=== PATIENT | male | born 1940 | race Caucasian/White ===

== ENCOUNTER 2018-02-17 15:12 | Observation (INO) ==
[2018-02-17] MEDS ORDERED: Isovue-370 500 ML INFUS..BTL IV ONE (15:36)
--- NOTE | 2018-02-17 15:38 | Emergency Department Note ---
Disposition Clinical Impression: Impaired mobility and ADLs Major depression Qualifiers: Major depression recurrence: unspecified whether recurrent Active/Remission status: currently active Major depression episode severity: unspecified Qualified Code(s): F32.9 - Major depressive disorder, single episode, unspecified Disposition: Admitted As Inpatient Condition: Good Referrals: Riley Danielle MD [Primary Care Provider] - Forms: ED Satisfaction Letter, Work/School Release Abdominal Pain HPI - General Chief Complaint: ED Abdominal Pain Stated Complaint: depression, weakness, abd pain Time Seen by Provider: 02/17/18 15:29 Source: patient Mode of arrival: ambulatory Limitations: no limitations Nursing Notes Reviewed: Yes Vital Signs Reviewed: Yes - History of Present Illness HPI Narrative: Patient presents today for evaluation of generalized weakness. The patient's family is at bedside. Patient's family is also a nurse within the emergency department. The patient has had progressive symptoms over the last couple of months. Over the last week he is symptoms have gotten significantly worse which includes generalized weakness as well as not getting out of bed to perform his daily attacks. Patient does not even want to feed himself secondary to his weakness. He describes his weakness is generalized weakness. He states that he feels he is just depressed. He states that he is upset that he cannot do the things he used to do and just feels that they are not necessarily worth doing. His describes not being able to get him up to do his daily medications work any activities. He wants to lay in bed all day. He asked for his pain medications which includes Percocet Pain Scale: 7 - Related Data Home Medications Medication Instructions Recorded Confirmed Gabapentin [Neurontin] 800 mg PO TID 03/06/15 02/17/18 Insulin NPH Hum/Reg Insulin Hm 45 units SQ BID 03/06/15 02/17/18 [Novolin 70-30 100 Unit/ml Vial] Lisinopril [Zestril] 40 mg PO DAILY 03/06/15 02/17/18 Simvastatin [Zocor] 40 mg PO HS 03/06/15 02/17/18 Primidone [Mysoline] 250 mg PO Q6H 08/31/17 02/17/18 Albuterol Sulfate [Ventolin Hfa] 2 puff IH DAILY PRN 02/17/18 02/17/18 FLUoxetine HCl [Fluoxetine HCl] 80 mg PO DAILY 02/17/18 02/17/18 OxyCODONE/APAP 10/325 [Percocet 1 tab PO QID 02/17/18 02/17/18 10/325 MG] Propranolol HCl 80 mg PO BID 02/17/18 02/17/18 Testosterone Cypionate 1 ml IM Q10D 02/17/18 02/17/18 [Depo-Testosterone] Allergies Allergy/AdvReac Type Severity Reaction Status Date / Time No Known Allergies Allergy Verified 08/31/17 09:08 Review of Systems: CONSTITUTIONAL: Weakness and fatigue. No fevers or chills. HEENT: Eyes: No visual changes. Ears, Nose, Throat: No hearing loss, difficulty talking or unable to swallow. SKIN: No rash or itching. CARDIOVASCULAR: No chest pain, chest pressure or chest discomfort. No palpitations or edema. RESPIRATORY: No shortness of breath, cough or sputum. GASTROINTESTINAL: Nausea and decreased appetite with generalized abdominal pain. GENITOURINARY: No burning on urination or hematuria. NEUROLOGICAL: No headache, dizziness, syncope, paralysis, ataxia, numbness or tingling in the extremities. No change in bowel or bladder control. MUSCULOSKELETAL: No muscle pain, back pain, joint pain or stiffness. Abdominal Pain PMH - Past Medical History Medical history: Reports: arthritis, COPD, diabetes, GERD, hypertension, other Male Surgical History: Reports: hip replacement, knee replacement, other Psychiatric history: Reports: no psych history - Social History Smoking status: Never smoker Alcohol use: Reports: none Drug use: Reports: none Physical Exam General: Well appearing, nontoxic, flat affect Head: Normocephalic Atraumatic Eyes: PERRL, EOMI ENT: Airway patent, no stridor Neck: supple, no meningismus Chest: Lungs clear to auscultation bilateral Cardiac: Regular rate and rhythm, no murmurs, rubs or gallops Abdomen: soft, nontender, nondistended; no guarding, rebound, or tenderness to percussion Musculoskeletal: Calves symmetric, nontender, no palpable cord Skin: No rash, normal skin tone Neuro: Alert and Oriented to person, place, and time; No focal deficit, CN 2-12 symmetric and intact; shaking of the right upper extremity with 5 out of 5 strength throughout the upper and lower extremities. Course - Reevaluation(s) Reevaluation #1: Family is at bedside and describes extreme depression. Lacks interest in anything other than making sure he gets his pain medications and time. Patient continues to have pain everywhere. Concern for depression and possible fibromyalgia on top of his other chronic medical conditions causing him to ignore self-care. The family is adamant they are unable to take care of the patient he will need admission. I will work with hospitalist to obtain admission and further treatment. Patient may need physical therapy as well as placement. - Consultations Consultation #1: Discussed with hospitalist. Patient accepted for admission. Vital Signs Temperature 97.5 F L 02/17/18 15:13 Pulse Rate 61 02/17/18 15:13 Respiratory Rate 18 02/17/18 15:13 Blood Pressure 168/87 02/17/18 15:13 O2 Sat by Pulse Oximetry 95 02/17/18 15:13 Temperature 97.5 F L 02/17/18 15:26 Pulse Rate 57 02/17/18 17:30 Respiratory Rate 15 02/17/18 17:30 Blood Pressure 147/80 02/17/18 17:30 O2 Sat by Pulse Oximetry 93 02/17/18 17:30 Oxygen Delivery Oxygen Delivery Room Air Abdominal Pain - Medical Records Medical records reviewed: Yes I reviewed the patient's medical records. - Lab Data Lab results reviewed: Yes I reviewed the patient's lab results. Result diagrams: 02/17/18 16:23 02/17/18 17:03 Lab Results 02/17/18 02/17/18 02/17/18 Range/Units 15:49 15:49 15:49 WBC (4.3-11.1) K/mcL RBC (4.19-5.50) M/mcL Hgb (12.9-16.9) g/dL Hct (37.5-50.1) % MCV (83.0-100.0) fL MCH (28.0-33.3) pg MCHC (31.6-35.5) g/dL RDW (11.5-14.5) % Plt Count (140-400) K/mcL MPV (9.4-12.4) fL Immature Gran % (0-4) % Seg Neutrophils % % Lymphocytes % % Monocytes % % Eosinophils % % Basophils % % Neutrophils # (1.6-8.9) K/mcL Lymphocytes # (0.6-4.6) K/mcL Monocytes # (0.0-1.3) K/mcL Eosinophils # (0.0-0.6) K/mcL Basophils # (0.0-0.2) K/mcL VBG pH (7.32-7.42) pH Units VBG pCO2 (41-51) mmHg VBG pO2 (25-50) mmHg VBG HCO3 (21-27) mEq/L Sodium Cancelled Potassium Cancelled Chloride Cancelled Carbon Dioxide Cancelled BUN Cancelled Creatinine Cancelled Est GFR ( Amer) Cancelled Est GFR (Non-Af Amer) Cancelled BUN/Creatinine Ratio Cancelled Glucose Cancelled POC Glucose (70-99) mg/dL Calculated Osmolality Cancelled Lactic Acid 1.5 (0.5-2.2) mmol/L Calcium Cancelled Total Bilirubin Cancelled Direct Bilirubin Cancelled Indirect Bilirubin Cancelled AST Cancelled ALT Cancelled Alkaline Phosphatase Cancelled Troponin I < 0.03 (< 0.04) ng/mL Serum Total Protein Cancelled Albumin Cancelled Globulin Cancelled Albumin/Globulin Ratio Cancelled Lipase Cancelled TSH Cancelled Urine Color (Yellow) Urine Clarity (Clear) Urine pH (5.0-8.0) pH Units Ur Specific [place] (1.010-1.025) Urine Protein (Neg-Trace) mg/dL Urine Glucose (UA) (Normal) mg/dL Urine Ketones (Negative) mg/dL Urine Blood (Negative) Urine Nitrite (Negative) Urine Bilirubin (Negative) Urine Urobilinogen (Normal) mg/dL Ur Leukocyte Esterase (Negative) Urine Microscopic RBC (0-3) per hpf Urine Microscopic WBC (0-3) per hpf Ur Squamous Epith Cells (None-Few) per lpf Urine Bacteria (None-Few) per hpf Hyaline Casts (None-Few) per lpf Ur Culture Indicated? (NO) Specimen Rejected Clotted 02/17/18 02/17/18 02/17/18 Range/Units 16:04 16:23 16:54 WBC 9.3 (4.3-11.1) K/mcL RBC 5.40 (4.19-5.50) M/mcL Hgb 17.3 H (12.9-16.9) g/dL Hct 51.7 H (37.5-50.1) % MCV 95.7 (83.0-100.0) fL MCH 32.0 (28.0-33.3) pg MCHC 33.5 (31.6-35.5) g/dL RDW 12.7 (11.5-14.5) % Plt Count 254 (140-400) K/mcL MPV 10.3 (9.4-12.4) fL Immature Gran % 0.4 (0-4) % Seg Neutrophils % 55.6 % Lymphocytes % 27.0 % Monocytes % 9.3 % Eosinophils % 7.3 % Basophils % 0.4 % Neutrophils # 5.2 (1.6-8.9) K/mcL Lymphocytes # 2.5 (0.6-4.6) K/mcL Monocytes # 0.9 (0.0-1.3) K/mcL Eosinophils # 0.7 H (0.0-0.6) K/mcL Basophils # 0.0 (0.0-0.2) K/mcL VBG pH 7.35 (7.32-7.42) pH Units VBG pCO2 53 H (41-51) mmHg VBG pO2 66 H (25-50) mmHg VBG HCO3 29 H (21-27) mEq/L Sodium Potassium Chloride Carbon Dioxide BUN Creatinine Est GFR ( Amer) Est GFR (Non-Af Amer) BUN/Creatinine Ratio Glucose POC Glucose (70-99) mg/dL Calculated Osmolality Lactic Acid (0.5-2.2) mmol/L Calcium Total Bilirubin Direct Bilirubin Indirect Bilirubin AST ALT Alkaline Phosphatase Troponin I (< 0.04) ng/mL Serum Total Protein Albumin Globulin Albumin/Globulin Ratio Lipase TSH Urine Color (Yellow) Urine Clarity (Clear) Urine pH (5.0-8.0) pH Units Ur Specific [place] (1.010-1.025) Urine Protein (Neg-Trace) mg/dL Urine Glucose (UA) (Normal) mg/dL Urine Ketones (Negative) mg/dL Urine Blood (Negative) Urine Nitrite (Negative) Urine Bilirubin (Negative) Urine Urobilinogen (Normal) mg/dL Ur Leukocyte Esterase (Negative) Urine Microscopic RBC (0-3) per hpf Urine Microscopic WBC (0-3) per hpf Ur Squamous Epith Cells (None-Few) per lpf Urine Bacteria (None-Few) per hpf Hyaline Casts (None-Few) per lpf Ur Culture Indicated? (NO) Specimen Rejected Hemolyzed 02/17/18 02/17/18 02/17/18 Range/Units 17:03 17:24 18:00 WBC (4.3-11.1) K/mcL RBC (4.19-5.50) M/mcL Hgb (12.9-16.9) g/dL Hct (37.5-50.1) % MCV (83.0-100.0) fL MCH (28.0-33.3) pg MCHC (31.6-35.5) g/dL RDW (11.5-14.5) % Plt Count (140-400) K/mcL MPV (9.4-12.4) fL Immature Gran % (0-4) % Seg Neutrophils % % Lymphocytes % % Monocytes % % Eosinophils % % Basophils % % Neutrophils # (1.6-8.9) K/mcL Lymphocytes # (0.6-4.6) K/mcL Monocytes # (0.0-1.3) K/mcL Eosinophils # (0.0-0.6) K/mcL Basophils # (0.0-0.2) K/mcL VBG pH (7.32-7.42) pH Units VBG pCO2 (41-51) mmHg VBG pO2 (25-50) mmHg VBG HCO3 (21-27) mEq/L Sodium 133 L Potassium 4.1 Chloride 106 Carbon Dioxide 26 BUN 11 Creatinine 1.10 Est GFR ( Amer) > 60 Est GFR (Non-Af Amer) > 60 BUN/Creatinine Ratio 10 Glucose 151 H POC Glucose 123 H (70-99) mg/dL Calculated Osmolality 278 L Lactic Acid (0.5-2.2) mmol/L Calcium 8.6 Total Bilirubin 0.4 Direct Bilirubin 0.0 Indirect Bilirubin 0.4 AST 13 ALT 11 Alkaline Phosphatase 108 H Troponin I (< 0.04) ng/mL Serum Total Protein 6.6 Albumin 3.9 Globulin 2.7 Albumin/Globulin Ratio 1.4 Lipase 46 TSH 2.209 Urine Color Yellow (Yellow) Urine Clarity Clear (Clear) Urine pH 6.5 (5.0-8.0) pH Units Ur Specific [place] 1.030 H (1.010-1.025) Urine Protein 30 H (Neg-Trace) mg/dL Urine Glucose (UA) >=1000 H (Normal) mg/dL Urine Ketones Negative (Negative) mg/dL Urine Blood Negative (Negative) Urine Nitrite Negative (Negative) Urine Bilirubin Negative (Negative) Urine Urobilinogen Normal (Normal) mg/dL Ur Leukocyte Esterase Negative (Negative) Urine Microscopic RBC 0-3 (0-3) per hpf Urine Microscopic WBC 0-3 (0-3) per hpf Ur Squamous Epith Cells Few (None-Few) per lpf Urine Bacteria None Seen (None-Few) per hpf Hyaline Casts None Seen (None-Few) per lpf Ur Culture Indicated? NO (NO) Specimen Rejected - Radiology Data Radiology results reviewed: Yes I reviewed the patient's radiology results. - EKG Data EKG attestation: Yes I reviewed and interpreted this EKG. EKG results narrative: EKG shows sinus bradycardia with ventricular rate of 59. CO interval 161. QRS 97. QTC 44. Patient has no significant ST elevations or depressions.
[2018-02-17 16:07] LABS: VBG HCO3 29 mEq/L (21-27); VBG PCO2 53 mmHg (41-51); VBG PH 7.35 pH Units (7.32-7.42); VBG PO2 66 mmHg (25-50)
[2018-02-17 16:35] LABS: Basophils % 0.4 %; Eosinophils # 0.7 K/mcL (0.0-0.6); Eosinophils % 7.3 %; Hematocrit 51.7 % (37.5-50.1); Hemoglobin 17.3 g/dL (12.9-16.9); Immature Granulocytes % 0.4 % (0-4); Lymphocytes # 2.5 K/mcL (0.6-4.6); Mean Corpuscular HGB Conc 33.5 g/dL (31.6-35.5); Mean Corpuscular Volume 95.7 fL (83.0-100.0); Mean Platelet Volume 10.3 fL (9.4-12.4); Monocytes # 0.9 K/mcL (0.0-1.3); Monocytes % 9.3 %; Neutrophils # 5.2 K/mcL (1.6-8.9); Platelet Count 254 K/mcL (140-400); Red Cell Distribution Width 12.7 % (11.5-14.5); Segmented Neutrophils % 55.6 %
[2018-02-17] MEDS ORDERED: *HR* OxyCODONE/APAP 10/325 TABLET PO ONE (16:37)
[2018-02-17 17:41] LABS: Alanine Aminotransferase 11 Units/L (7-52); Albumin 3.9 g/dL (3.5-5.7); Albumin/Globulin Ratio 1.4 (1.1-2.2); Alkaline Phosphatase 108 Units/L (34-104); Aspartate Amino Transferase 13 Units/L (13-39); BUN/Creatinine Ratio 10 (6-26); Bilirubin,Indirect 0.4 mg/dL (0.0-1.2); Bilirubin,Total 0.4 mg/dL (0.3-1.0); Blood Urea Nitrogen 11 mg/dL (8-23); Calcium 8.6 mg/dL (8.6-10.3); Carbon Dioxide 26 mEq/L (23-29); Chloride 106 mEq/L (98-107); Globulin 2.7 g/dL (2.4-3.5); Glucose 151 mg/dL (70-105); Lipase 46 Units/L (11-82); Osmolality,Calculated 278 (280-300); Potassium 4.1 mEq/L (3.5-5.1); Sodium 133 mEq/L (136-145); Total Protein 6.6 g/dL (6.4-8.9); eGFR For Non-African Americans > 60 (> 60)
[2018-02-17 17:54] LABS: Thyroid Stimulating Hormone 2.209 mcIU/mL (0.340-5.600)
[2018-02-17 18:11] LABS: Bilirubin,Urine Negative (Negative); Blood,Urine Negative (Negative); Clarity,Urine Clear (Clear); Color,Urine Yellow (Yellow); Glucose,Urine (UA) >=1000 mg/dL (Normal); Ketones,Urine Negative (Negative); Leukocyte Esterase,Urine Negative (Negative); Nitrite,Urine Negative (Negative); PH,Urine 6.5 pH Units (5.0-8.0); Protein,Urine 30 mg/dL (Neg-Trace); Urobilinogen,Urine Normal (Normal)
[2018-02-17 18:12] LABS: Bacteria,Urine None Seen per hpf (None-Few); Hyaline Casts,Urine None Seen per lpf (None-Few); RBC,Urine 0-3 per hpf (0-3); Squamous Epithelial Cell,Urine Few per lpf (None-Few); WBC,Urine 0-3 per hpf (0-3)
[2018-02-17] MEDS ORDERED: 0.9 % Sodium Chloride 1,000 ML IVC ONE (19:01)
[2018-02-17] MEDS ORDERED: Gabapentin 400 MG CAPSULE PO STA (19:44)
[2018-02-17] MEDS ORDERED: Naloxone 0.4 MG/ML INJ IVP PRN (23:20)
[2018-02-17] MEDS ORDERED: Ondansetron ODT 4 MG TAB.RAPDIS SL PRN (23:20)
[2018-02-17] MEDS ORDERED: OXYCODONE Oral CONC 10 MG/0.5 ML ORAL.SYG SL PRN (23:20)
[2018-02-17] MEDS ORDERED: Dextrose Gel 15 GM/37.5 ML TUBE PO PRN ×2 (23:23)
[2018-02-17] MEDS ORDERED: D5% in Water 1,000 ML IVC PRN (23:23)
[2018-02-17] MEDS ORDERED: *HR* Dextrose 50 % in Water (Syg) 50 ML SYRINGE IVP PRN (23:23)
[2018-02-17] MEDS: OXYCODONE Oral CONC 10 MG/0.5 ML ORAL.SYG SL PRN (23:48)
[2018-02-18 01:17] LABS: Hematocrit 50.4 % (37.5-50.1); Hemoglobin 16.8 g/dL (12.9-16.9); Mean Corpuscular HGB Conc 33.3 g/dL (31.6-35.5); Mean Corpuscular Hemoglobin 31.9 pg (28.0-33.3); Mean Corpuscular Volume 95.6 fL (83.0-100.0); Mean Platelet Volume 10.8 fL (9.4-12.4); Platelet Count 239 K/mcL (140-400); Red Blood Count 5.27 M/mcL (4.19-5.50); Red Cell Distribution Width 12.8 % (11.5-14.5)
[2018-02-18 01:36] LABS: BUN/Creatinine Ratio 10 (6-26); Blood Urea Nitrogen 11 mg/dL (8-23); Calcium 8.3 mg/dL (8.6-10.3); Carbon Dioxide 26 mEq/L (23-29); Chloride 104 mEq/L (98-107); Glucose 101 mg/dL (70-105); Osmolality,Calculated 284 (280-300); Potassium 3.7 mEq/L (3.5-5.1); Sodium 137 mEq/L (136-145); eGFR For Non-African Americans > 60 (> 60)
[2018-02-18] MEDS: OXYCODONE Oral CONC 10 MG/0.5 ML ORAL.SYG SL PRN ×4 (03:43→16:39)
--- NOTE | 2018-02-18 05:04 | Internal Med History&Physical ---
Date of Encounter: 02/18/18 Time of Encounter: 22:45 Internal Medicine - H&P: HPI Chief complaint: Major depression Admitted From: Home Plans for Post Hospital Care: Home History of present illness: Mr. Brock is a 77 year old male Patient states that he is in constant pain in his legs, stomach and back. Lately he just wants to lay down and not do anything. He says "I am kind of depressed" and this is been going on for 2-3 months. He says his hips hurt, as well as his lower stomach causing him to not eat like he used to. He contributes this to getting old, which makes him more depressed. When asked about this stomach pain, patient states he thinks fried foods make it worse but other foods do it as well. He has recently started treatment for Parkinson's disease at [facility], and he gets embarrassed when he goes out due to his shakes. Currently patient denies nausea and vomiting but does have lower abdominal pain which is chronic. He denies epigastric abdominal pain, right upper quadrant abdominal pain. He denies chest pain, diarrhea, constipation, and dysuria. He has a history of diabetes and says that his sugars are not well-controlled and he sometimes takes his insulin even when he is not eating. Does not check her sugars regularly but sometimes will feel sick enough to get up in the night eat something quickly. His helps him with medications but sometimes this is difficult for her. Past Med Surg Social Fam HX - Past Medical History Medical history: arthritis, COPD, diabetes, GERD, hypertension, other Additional medical history: Tremors. Psychiatric history: no psych history - Past Surgical History Surgical History: hip replacement, knee replacement, orthopedic, other Additional surgical history: L eft hip and Left knee replacement. - Social History Smoking Status: Never smoker Smokeless Tobacco Status: No Alcohol use: none Drug use: none Internal Medicine - H&P: Meds Gabapentin [Neurontin] 800 mg PO TID 03/06/15 [History] Insulin NPH Hum/Reg Insulin Hm [Novolin 70-30 100 Unit/ml Vial] 45 units SQ BID 03/06/15 [History] Lisinopril [Zestril] 40 mg PO DAILY 03/06/15 [History] Simvastatin [Zocor] 40 mg PO HS 03/06/15 [History] Primidone [Mysoline] 250 mg PO Q6H 02/21/18 [History] Albuterol Sulfate [Ventolin Hfa] 2 puff IH DAILY PRN 02/17/18 [History] FLUoxetine HCl [Fluoxetine HCl] 80 mg PO DAILY 02/17/18 [History] OxyCODONE/APAP 10/325 [Percocet 10/325 MG] 1 tab PO QID 02/17/18 [History] Propranolol HCl 80 mg PO BID 02/17/18 [History] Testosterone Cypionate [Depo-Testosterone] 1 ml IM Q10D 02/17/18 [History] 3 Allergy/AdvReac Type Severity Reaction Status Date / Time No Known Allergies Allergy Verified 08/31/17 09:08 All Systems PM: A 10-system review of systems was performed and is negative for pertinent findings except as documented above in the HPI. - Constitutional Vitals: Temp Pulse Resp BP Pulse Ox 97.8 F 63 15 163/71 96 02/18/18 03:13 02/18/18 03:13 02/18/18 03:13 02/18/18 03:13 02/18/18 03:13 General appearance: Present: cooperative, A&O X 3, no acute distress, answers questions appropriately - Head Head exam: Present: normal inspection - Eye Eye exam: Present: EOMI, normal appearance - Respiratory Respiratory exam: Present: CTAB. Absent: chest wall tenderness, respiratory distress, wheezes - Cardiovascular Cardiovascular exam: Present: RRR. Absent: diastolic murmur, systolic murmur - GI/Abdominal GI/Abdominal exam: Present: normal bowel sounds, soft, tenderness Additional comments: Mild tenderness with palpation in the lower abdomen - Extremities Exam Extremities exam: Present: warm, radial pulses palpable and symmetrical. Absent : calf tenderness, pedal edema, tenderness - Neurological Exam Neurological exam: Present: no focal deficits, strengths equal and symetr throughout. Absent: motor sensory deficit, facial droop, speech deficit - Psychiatric Psychiatric exam: Present: depressed Additional comments: Patient somewhat tearful during evaluation - Skin Skin exam: Present: normal color, warm Internal Med - H&P Results - Labs CBC & Chem 7: 02/18/18 00:35 02/18/18 00:35 Labs: Short CBC 02/18/18 Range/Units 00:35 WBC 11.0 (4.3-11.1) K/mcL Hgb 16.8 (12.9-16.9) g/dL Hct 50.4 H (37.5-50.1) % Plt Count 239 (140-400) K/mcL [facility] 02/18/18 00:35 Sodium 137 Potassium 3.7 Chloride 104 Carbon Dioxide 26 BUN 11 Creatinine 1.13 Glucose 101 Calcium 8.3 L - Assessment and plan (1) Major depression Current Visit: Yes Status: Acute Assessment and plan: Patient's states that it has been difficulty to care for the patient at home as he does not want to get out of bed and do anything. Patient has chronic pain and takes percocet and gabapentin for this. His pain level has not changed recently but being in pain and not being able to do the regular activities he use to do makes him depressed. He has been prescribed fluoxetine, but he says it is not helping. Patient was agreeable to admission, not pink- slipped. Psych eval in the morning for resources and support, potential treatment options Qualifiers: Major depression recurrence: unspecified whether recurrent Active/ Remission status: currently active Major depression episode severity: unspecified Qualified Code(s): F32.9 - Major depressive disorder, single episode, unspecified (2) Impaired mobility and ADLs Current Visit: Yes Status: Acute Assessment and plan: As above, patient not getting out of bed, not taking his meds safely including insulin. having difficulty caring for him. New diagnosis of parkinsons disease as well Psych eval (3) Chronic pain Current Visit: Yes Status: Acute Assessment and plan: No change from baseline. Patient does have abdominal pain in the lower abdomen, however his CT showed evidence of possible chronic pancreatitis. Patient did not have tenderness in the upper part of his abdomen on exam as would be expected with that finding. Continue home meds. Qualifiers: Qualified Code(s): G89.29 - Other chronic pain (4) Diabetes Current Visit: Yes Status: Acute Assessment and plan: Monitor sugars, ACHS Insulin sliding scale as needed. Qualifiers: Diabetes mellitus type: type 2 Diabetes mellitus custodial insulin use: with custodial use Diabetes mellitus complication status: with neurologic complications Diabetes mellitus complication detail: with polyneuropathy Qualified Code(s): E11.42 - Type 2 diabetes mellitus with diabetic polyneuropathy; Z79.4 - extermination inspector (current) use of insulin (5) DVT prophylaxis Current Visit: Yes Status: Acute Assessment and plan: SCDs - Time Spent With Patient Total time spent is greater than 50% in coordination of care (as documented) at patient's floor/unit and/or counseling patient: Greater than 35 minutes
[2018-02-18] MEDS: Insulin LISPRO 300 UNITS/3 ML VIAL SQ SCH ×2 (07:30→12:11)
[2018-02-18] MEDS: Gabapentin 400 MG CAPSULE PO SCH ×2 (08:08→13:49)
[2018-02-18 16:37] VITALS: BP 186/84
--- NOTE | 2018-02-18 16:41 | Discharge Summary ---
- NOTES TO OUTPATIENT PROVIDER Notes to Outpatient Provider: f/u with PCP as scheduled. Date of Encounter: 02/18/18 Time of Encounter: 16:39 - Discharge Diagnosis (1) Chronic pain Priority: Secondary Status: Acute Qualifiers: Qualified Code(s): G89.29 - Other chronic pain (2) DVT prophylaxis Priority: Primary Status: Acute (3) Diabetes Priority: Secondary Status: Acute Qualifiers: Diabetes mellitus type: type 2 Diabetes mellitus terminal make up operator insulin use: with terminal make up operator use Diabetes mellitus complication status: with neurologic complications Diabetes mellitus complication detail: with polyneuropathy Qualified Code(s): E11.42 - Type 2 diabetes mellitus with diabetic polyneuropathy; Z79.4 - assisted (current) use of insulin (4) Impaired mobility and ADLs Priority: Primary Status: Acute (5) Major depression Priority: Primary Status: Acute Qualifiers: Major depression recurrence: unspecified whether recurrent Active/ Remission status: currently active Major depression episode severity: unspecified Qualified Code(s): F32.9 - Major depressive disorder, single episode, unspecified Hospital course: Mr. Brock is a 77 year old male Mr. Brock is a 77 year old male Patient states that he is in constant pain in his legs, stomach and back. Lately he just wants to lay down and not do anything. He says "I am kind of depressed" and this is been going on for 2-3 months. He says his hips hurt, as well as his lower stomach causing him to not eat like he used to. He contributes this to getting old, which makes him more depressed. When asked about this stomach pain, patient states he thinks fried foods make it worse but other foods do it as well. He has recently started treatment for Parkinson's disease at [facility], and he gets embarrassed when he goes out due to his shakes. Currently patient denies nausea and vomiting but does have lower abdominal pain which is chronic. He denies epigastric abdominal pain, right upper quadrant abdominal pain. He denies chest pain, diarrhea, constipation, and dysuria. He has a history of diabetes and says that his sugars are not well-controlled and he sometimes takes his insulin even when he is not eating. Does not check her sugars regularly but sometimes will feel sick enough to get up in the night eat something quickly. His helps him with medications but sometimes this is difficult for her. further workup showed normal vital signs, labs are unremarkable, CT abd showed chronic pancreatitis and gall stone, no acute pathology. Psych consulted, recommended outpatient f/u. Pt and family wishes to go home. Pt will be discharged home today. Discharge discussed with: patient Time spent discussing smoking cessation with patient: more than 10 minutes - Time Spent with Patient Total time spent providing and/or coordinating discharge services: Greater than 30 minutes - Discharge Medications Home Medications: Gabapentin [Neurontin] 800 mg PO TID 03/06/15 [History] Insulin NPH Hum/Reg Insulin Hm [Novolin 70-30 100 Unit/ml Vial] 45 units SQ BID 03/06/15 [History] Lisinopril [Zestril] 40 mg PO DAILY 03/06/15 [History] Simvastatin [Zocor] 40 mg PO HS 03/06/15 [History] Primidone [Mysoline] 250 mg PO Q6H 08/31/17 [History] Albuterol Sulfate [Ventolin Hfa] 2 puff IH DAILY PRN 02/17/18 [History] FLUoxetine HCl [Fluoxetine HCl] 80 mg PO DAILY 02/17/18 [History] OxyCODONE/APAP 10/325 [Percocet 10/325 MG] 1 tab PO QID 02/17/18 [History] Propranolol HCl 80 mg PO BID 02/17/18 [History] Testosterone Cypionate [Depo-Testosterone] 1 ml IM Q10D 02/17/18 [History] Allergies/Adverse Reactions: 3 Allergy/AdvReac Type Severity Reaction Status Date / Time No Known Allergies Allergy Verified 08/31/17 09:08 Date of admission: 02/17/18 20:59 Primary care physician: Riley Danielle MD Consults: 02/18/18 05:03 Consult to Psychiatry [CONS] Routine Consulting Provider: Psychiatry Molly Reason consult: Other Other reason and/or additional details: Psych eval for major depression impeding patient's function to live. concerned patient is not safe to be home with her as she cannot take care of him. Anticipated date of discharge: 02/18/18 - Constitutional Vitals: Temp Pulse Resp BP Pulse Ox 97.6 F 68 16 186/84 94 02/18/18 16:35 02/18/18 16:35 02/18/18 16:35 02/18/18 16:35 02/18/18 16:35 General appearance: Present: cooperative, A&O X 3, no acute distress, answers questions appropriately Exam: PHYSICAL EXAMINATION: GENERAL APPEARANCE: The patient is alert, oriented and in no acute distress. HEENT: Head is normocephalic. The sinuses are nontender. Pupils are equal and reactive. The nares are patent. Oropharynx clear without lesions. NECK: Supple without lymphadenopathy. HEART: Regular rate and rhythm. LUNGS: No crackles or wheezes are heard. ABDOMEN: Soft, nontender, nondistended with good bowel sounds heard. Inguinal area is normal. EXTREMITIES: Without cyanosis, clubbing or edema. NEUROLOGICAL: Gross nonfocal. SKIN: Warm and dry without any rash. - Patient Status Disposition: Home, Self-Care Condition: Good Functional capacity at discharge: independent ambulation Overall status at discharge: patient is back to baseline - Discharge Instructions Follow Up With: Riley Danielle MD [Primary Care Provider] - - Diet and Activity Activity: increase activity as tolerated Diet: diabetic diet
--- NOTE | 2018-02-18 17:04 | Consult Note ---
Date of Encounter: 02/18/18 Time of Encounter: 16:00 Assessment & Recommendation (1) Mood disorder due to known physiological condition with depressive features Current visit: Yes Status: Acute (2) Chronic pain Current visit: Yes Status: Acute Qualifiers: Chronic pain type: other chronic pain Qualified Code(s): G89.29 - Other chronic pain History of Present Illness Patient: new to practice Requesting Physician: Kam Nichols MD Reason for consult: r/o depression vs pain History of present illness: Mr. Brock is a 77 year old male The patient was interviewed alone and later was interviewed in the presence of his . Chief complaint I would if I could History of present illness. The patient is being evaluated for depression and his ability to function. The patient has multiple medical problems that limit his ability to work and perform activities of daily living and to practice some hobbies. 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 This is been continued for a long period of time and the patient remains on 80 mg of Prozac even at the age of 77. He is followed by his family physician and so this medicine is been continued however Prozac is not recommended on the [facility]'s criteria as it may build up in geriatric patients. This patient has positive mood good interest reactivity of mood good self- esteem but does have some guilt and rumination low energy and difficulty with walking pain from neuropathy and attends a complain and asked for more pain medicines from time to time. The patient does not have suicidal ideation or psychosis pessimism or severe hopelessness. The patient's is able to identify some depressive symptoms but recognized that he does not have the psychological stigmata of major depressive disorder. Thus the request is what to do. CC: Kam Nichols MD Past Med Surg Social Fam HX - Past Medical History Source: patient Medical history: arthritis, COPD, diabetes, GERD, hypertension, other - Past Psychiatric History Psychiatric history: Reports: depression Family psychiatric history: Unknown Family History of Suicide: Unknown - Past Surgical History Surgical History: hip replacement, knee replacement, orthopedic, other - Social History Smoking Status: Never smoker Smokeless Tobacco Status: No Alcohol use: none Drug use: none Occupational status: retired Current living situation: Home - Independent Activity Level: Mostly sedentary Recent Out of Country Travel Within the Last 8 Weeks: No Exposure or Possible Exposure to Illness During Travel: No Medications & Allergies Gabapentin [Neurontin] 800 mg PO TID 03/06/15 [History] Insulin NPH Hum/Reg Insulin Hm [Novolin 70-30 100 Unit/ml Vial] 45 units SQ BID 03/06/15 [History] Lisinopril [Zestril] 40 mg PO DAILY 03/06/15 [History] Simvastatin [Zocor] 40 mg PO HS 03/06/15 [History] Primidone [Mysoline] 250 mg PO Q6H 08/31/17 [History] Albuterol Sulfate [Ventolin Hfa] 2 puff IH DAILY PRN 02/17/18 [History] FLUoxetine HCl [Fluoxetine HCl] 80 mg PO DAILY 02/17/18 [History] OxyCODONE/APAP 10/325 [Percocet 10/325 MG] 1 tab PO QID 02/17/18 [History] Propranolol HCl 80 mg PO BID 02/17/18 [History] Testosterone Cypionate [Depo-Testosterone] 1 ml IM Q10D 02/17/18 [History] 3 Allergy/AdvReac Type Severity Reaction Status Date / Time No Known Allergies Allergy Verified 08/31/17 09:08 Review of Systems Psychiatric: Reports: other Psychiatry Exam - Constitutional Vitals: Temp Pulse Resp BP Pulse Ox 97.6 F 68 16 186/84 94 02/18/18 16:35 02/18/18 16:35 02/18/18 16:35 02/18/18 16:35 02/18/18 16:35 General appearance: age & developmentally appropriate, well-groomed, well- nourished - Musculoskeletal Gait: normal Station: relaxed Strength & Tone: normal for patient - Psychiatric Patient Orientation: Yes Person, Yes Time, Yes Place Level of alertness: Alert Behavior: calm, cooperative Psychomotor activity: Slowed Eye Contact: Maintains Eye Contact Mood Description: Euthymic/stable Affect description: congruent with mood, full range Speech Volume: Normal Speech pattern: normal rate, normal rhythm, normal tone, fluent, spontaneous Language & Vocabulary: consistent with education Thought Process: Linear, Goal Oriented Thought Content: No Suicidal ideation, No Homicidal ideation, No Overt delusions Perceptual Disturbances: No Auditory hallucinations, No Visual hallucinations Attention Span Ability: Capable of Focused Attention Memory Description: Grossly Intact Patient Reliability: Reliable Historian Fund of knowledge: Yes abstraction ability, Yes aware of current events Intelligence Estimate: Average Judgment: Fair Insight: Partial Results - Labs Labs: Laboratory Last Values WBC 11.0 K/mcL (4.3-11.1) 02/18/18 00:35 RBC 5.27 M/mcL (4.19-5.50) 02/18/18 00:35 Hgb 16.8 g/dL (12.9-16.9) 02/18/18 00:35 Hct 50.4 % (37.5-50.1) H 02/18/18 00:35 MCV 95.6 fL (83.0-100.0) 02/18/18 00:35 MCH 31.9 pg (28.0-33.3) 02/18/18 00:35 MCHC 33.3 g/dL (31.6-35.5) 02/18/18 00:35 RDW 12.8 % (11.5-14.5) 02/18/18 00:35 Plt Count 239 K/mcL (140-400) 02/18/18 00:35 MPV 10.8 fL (9.4-12.4) 02/18/18 00:35 Immature Gran % 0.4 % (0-4) 02/17/18 16:23 Seg Neutrophils % 55.6 % 02/17/18 16:23 Lymphocytes % 27.0 % 02/17/18 16:23 Monocytes % 9.3 % 02/17/18 16:23 Eosinophils % 7.3 % 02/17/18 16:23 Basophils % 0.4 % 02/17/18 16:23 Neutrophils # 5.2 K/mcL (1.6-8.9) 02/17/18 16:23 Lymphocytes # 2.5 K/mcL (0.6-4.6) 02/17/18 16:23 Monocytes # 0.9 K/mcL (0.0-1.3) 02/17/18 16:23 Eosinophils # 0.7 K/mcL (0.0-0.6) H 02/17/18 16:23 Basophils # 0.0 K/mcL (0.0-0.2) 02/17/18 16:23 VBG pH 7.35 pH Units (7.32-7.42) 02/17/18 16:04 VBG pCO2 53 mmHg (41-51) H 02/17/18 16:04 VBG pO2 66 mmHg (25-50) H 02/17/18 16:04 VBG HCO3 29 mEq/L (21-27) H 02/17/18 16:04 Sodium 137 mEq/L (136-145) 02/18/18 00:35 Potassium 3.7 mEq/L (3.5-5.1) 02/18/18 00:35 Chloride 104 mEq/L (98-107) 02/18/18 00:35 Carbon Dioxide 26 mEq/L (23-29) 02/18/18 00:35 BUN 11 mg/dL (8-23) 02/18/18 00:35 Creatinine 1.13 mg/dL (0.70-1.30) 02/18/18 00:35 Est GFR ( Amer) > 60 (> 60) 02/18/18 00:35 Est GFR (Non-Af Amer) > 60 (> 60) 02/18/18 00:35 BUN/Creatinine Ratio 10 (6-26) 02/18/18 00:35 Glucose 101 mg/dL (70-105) 02/18/18 00:35 POC Glucose 123 mg/dL (70-99) H 02/17/18 17:24 Calculated Osmolality 284 (280-300) 02/18/18 00:35 Lactic Acid 1.5 mmol/L (0.5-2.2) 02/17/18 15:49 Calcium 8.3 mg/dL (8.6-10.3) L 02/18/18 00:35 Total Bilirubin 0.4 mg/dL (0.3-1.0) 02/17/18 17:03 Direct Bilirubin 0.0 mg/dL (0.0-0.2) 02/17/18 17:03 Indirect Bilirubin 0.4 mg/dL (0.0-1.2) 02/17/18 17:03 AST 13 Units/L (13-39) 02/17/18 17:03 ALT 11 Units/L (7-52) 02/17/18 17:03 Alkaline Phosphatase 108 Units/L (34-104) H 02/17/18 17:03 Troponin I < 0.03 ng/mL (< 0.04) 02/17/18 15:49 Serum Total Protein 6.6 g/dL (6.4-8.9) 02/17/18 17:03 Albumin 3.9 g/dL (3.5-5.7) 02/17/18 17:03 Globulin 2.7 g/dL (2.4-3.5) 02/17/18 17:03 Albumin/Globulin Ratio 1.4 (1.1-2.2) 02/17/18 17:03 Lipase 46 Units/L (11-82) 02/17/18 17:03 TSH 2.209 mcIU/mL (0.340-5.600) 02/17/18 17:03 Urine Color Yellow (Yellow) 02/17/18 18:00 Urine Clarity Clear (Clear) 02/17/18 18:00 Urine pH 6.5 pH Units (5.0-8.0) 02/17/18 18:00 Ur Specific [place] 1.030 (1.010-1.025) H 02/17/18 18:00 Urine Protein 30 mg/dL (Neg-Trace) H 02/17/18 18:00 Urine Glucose (UA) >=1000 mg/dL (Normal) H 02/17/18 18:00 Urine Ketones Negative mg/dL (Negative) 02/17/18 18:00 Urine Blood Negative (Negative) 02/17/18 18:00 Urine Nitrite Negative (Negative) 02/17/18 18:00 Urine Bilirubin Negative (Negative) 02/17/18 18:00 Urine Urobilinogen Normal mg/dL (Normal) 02/17/18 18:00 Ur Leukocyte Esterase Negative (Negative) 02/17/18 18:00 Urine Microscopic RBC 0-3 per hpf (0-3) 02/17/18 18:00 Urine Microscopic WBC 0-3 per hpf (0-3) 02/17/18 18:00 Ur Squamous Epith Cells Few per lpf (None-Few) 02/17/18 18:00 Urine Bacteria None Seen per hpf (None-Few) 02/17/18 18:00 Hyaline Casts None Seen per lpf (None-Few) 02/17/18 18:00 Ur Culture Indicated? NO (NO) 02/17/18 18:00 Specimen Rejected Hemolyzed 02/17/18 16:54 Consult Discharge Plan - Plan Instructions: Depression (DC), Acute Abdominal Pain (DC) Additional Instructions: Follow up with primary care provider to wean off prozac and start cymbalta per [facility] recommendations. Referrals: Riley Danielle MD [Primary Care Provider] -
[2018-02-18] MEDS ORDERED: Insulin NPH/REG 70/30 100 UNIT/ML (x5UNIT) SQ SCH (21:00)
[2018-02-18] MEDS ORDERED: Insulin DETEMIR 100 UNIT/ML X5UNITS SQ SCH (21:00)
[2018-02-19] MEDS ORDERED: Lisinopril 20 MG TABLET PO SCH (09:00)
[2018-02-19] MEDS ORDERED: FLUoxetine 20 MG CAPSULE PO SCH (09:00)
--- NOTE | 2018-02-21 17:43 | Electrocardiograph Report ---
[place] [id number] Test Date: 2018-02-17 Pat Name: Sincere Brock Department: 103 Room: 3B Gender: M [employer] Supervisor: MARK : 1940 Requested By: Kam Nichols Order Number: [id number] Reading MD: Cyndi Roque Measurements Intervals [place] Rate: 59 P: 31 ID: [id number] QRS: -44 QRSD: 97 T: 28 QT: 414 QTc: 414 Interpretive Statements SINUS BRADYCARDIA MARKED LEFT AXIS DEVIATION [QRS AXIS < -30] Electronically Signed On 02-21-2018 17:41:41 EDT by Cyndi Roque
== END 2018-02-18 17:10 | disposition home or self-care (01) ==
LOC: 3BNU 15:12 → EMEROO 15:12 → 3BNU 21:17
PROVIDERS: ADMIT Family Medicine; ATTEND Family Medicine

== ENCOUNTER 2018-04-11 17:12 | Inpatient (IN) ==
[2018-04-11] MEDS ORDERED: D5% in Water 1,000 ML IVC PRN (21:45)
[2018-04-11] MEDS ORDERED: Naloxone 0.4 MG/ML INJ IVP PRN (21:45)
[2018-04-11] MEDS ORDERED: Dextrose Gel 15 GM/37.5 ML TUBE PO PRN ×2 (21:45)
[2018-04-11] MEDS ORDERED: *HR* Heparin 5,000 UNIT/ML VIAL IVP PRN ×3 (21:45→23:30)
[2018-04-11] MEDS ORDERED: *HR* Dextrose 50 % in Water (Syg) 50 ML SYRINGE IVP PRN (21:45)
--- NOTE | 2018-04-11 22:45 | Internal Med History&Physical ---
Date of Encounter: 04/11/18 Time of Encounter: 21:30 Internal Medicine - H&P: HPI Chief complaint: SOB Admitted From: Hospital to Hospital Transfer Plans for Post Hospital Care: Home History of present illness: Mr. Brock is a 77 year old male who presents in transfer from [facility] Emergency Department. He was diagnosed with new onset atrial fibrillation with rapid ventricular response there, treated with IV Cardizem drip, and transferred to [facility] for ongoing treatment and care. Upon my assessment of the patient, patient states he feels better than his initial presentation to the ER. He presented there with complaints of shortness of breath, orthopnea, paroxysmal nocturnal dyspnea, and edema, all of which started within the last week. He was felt to have evidence of CHF on exam as well as x-ray imaging. Additionally, he was diagnosed with atrial fibrillation with rapid ventricular response. He was treated with Cardizem drip as above as well as Lasix. He has diuresed a good bit and feels better clinically. He has minimal shortness of breath now. He denies any chest pain, chest tightness, or difficulty breathing. He denies any racing heartbeats, palpitations, lightheadedness, or dizziness. He denies any prior history of heart disease or heart rhythm problems. He is an active individual. He does suffer from essential tremors and has been following with [facility] neurology. He states that he may be a candidate for a brain stimulator implant in the near future for control of his essential tremor. He denies any frequent falls, ataxia, or any Parkinson's-type symptoms. Past Med Surg Social Fam HX - Past Medical History Attestation: Yes The following information was validated with the patient. Source: patient, old records reviewed, other ([facility] ER records) Medical history: arthritis, COPD, diabetes, GERD, hypertension Additional medical history: Tremors. Psychiatric history: depression - Past Surgical History Surgical History: hip replacement, knee replacement, orthopedic, other Additional surgical history: L eft hip and Left knee replacement. - Social History Smoking Status: Never smoker Smokeless Tobacco Status: No Alcohol use: none Drug use: none Current living situation: Home, With Family Activity Level: Independent ambulation Recent Out of Country Travel Within the Last 8 Weeks: No - Family History Father Name: Sincere Brock Living Status: Age at : 75 Cause of : ETOH Hx Family Cardiac Disorders: No Hx Family Respiratory Disorders: Yes Mother Living Status: Hx Family Cardiac Disorders: No Internal Medicine - H&P: Meds Gabapentin [Neurontin] 800 mg PO TID 03/06/15 [History] Insulin NPH Hum/Reg Insulin Hm [Novolin 70-30 100 Unit/ml Vial] 15 units SQ BID 03/06/15 [History] Lisinopril [Zestril] 40 mg PO DAILY 03/06/15 [History] Simvastatin [Zocor] 40 mg PO HS 03/06/15 [History] Primidone [Mysoline] 250 mg PO HS 08/31/17 [History] Albuterol Sulfate [Ventolin Hfa] 2 puff IH DAILY PRN 02/17/18 [History] OxyCODONE/APAP 10/325 [Percocet 10/325 MG] 1 tab PO QID 02/17/18 [History] Testosterone Cypionate [Depo-Testosterone] 1 ml IM Q10D 02/17/18 [History] DULoxetine [Cymbalta] 40 mg PO DAILY 04/11/18 [History] 3 Allergy/AdvReac Type Severity Reaction Status Date / Time No Known Allergies Allergy Verified 08/31/17 09:08 - Constitutional Constitutional: no chills, no fever(s), no night sweats - EENT Eyes: no blurry vision, no change in vision Ears: no ear pain, no tinnitus Nose, mouth and throat: no nasal congestion, no sinus pressure, no sore throat - Cardiovascular Cardiovascular ROS IM: dyspnea, dyspnea on exertion, edema, orthopnea, paroxysmal nocturnal dyspnea, no chest pain, no irregular heart rhythm, no lightheadedness, no palpitations, no syncope - Respiratory Respiratory: no cough, no hemoptysis, no chest congestion, no excessive phlegm production, no change in phlegm color - Gastrointestinal Gastrointestinal: no abdominal pain, no diarrhea, no hematemesis, no hematochezia, no melena, no vomiting - Genitourinary Genitourinary ROS male: no dysuria, no flank pain, no hematuria - Musculoskeletal Musculoskeletal ROS IM: no arthralgias, no back pain - Integumentary Integumentary IM: no rash, no jaundice - Neurological Neurological ROS: no confusion, no dizziness, no focal weakness, no frequent falls, no headache(s) Additional comments: + peripheral neuropathy -- chronic - Psychiatric Psychiatric: no anxiety, no depression - Endocrine Endocrine IM: no cold intolerance, no flushing, no heat intolerance, no polydipsia, no polyuria - Hematologic/Lymphatic Hematologic/Lymphatic: no easy bruising, no lymphadenopathy - Allergic/Immunologic Allergic/Immunologic: no GI upset with certain foods - Constitutional Vitals: Temp Pulse Resp BP Pulse Ox 97.8 F 100 18 142/100 95 04/11/18 21:17 04/11/18 21:17 04/11/18 21:17 04/11/18 21:17 04/11/18 21:17 General appearance: Present: cooperative, A&O X 3, pleasant, no acute distress, answers questions appropriately Exam: see below - Head Head exam: Present: atraumatic, normal inspection - Eye Eye exam: Present: EOMI, PERRL. Absent: scleral icterus Pupils: Present: normal accommodation - ENT ENT exam: Present: mucous membranes moist, normal exam, normal oropharynx - Neck Neck exam general surgery: Present: full ROM, supple. Absent: tenderness, nuchal rigidity, thyromegaly - Respiratory Respiratory exam: Present: CTAB. Absent: chest wall tenderness, rales, respiratory distress, rhonchi, wheezes - Cardiovascular Cardiovascular exam: Present: distant heart sounds, irregular rhythm, +S1, +S2, tachycardia. Absent: diastolic murmur, systolic murmur - GI/Abdominal GI/Abdominal exam: Present: normal bowel sounds, soft. Absent: guarding, hepatomegaly, mass, rebound, splenomegaly, tenderness - Extremities Exam Extremities exam: Present: normal capillary refill, pedal edema (trace ), warm, radial pulses palpable and symmetrical. Absent: calf tenderness, joint swelling - Back Exam Back exam: Absent: CVA tenderness (L), CVA tenderness (R) - Neurological Exam Neurological exam: Present: alert, CN II-XII intact, oriented X3, no focal deficits Additional comments: decreased sensation in feet -- chronic - Psychiatric Psychiatric exam: Present: normal affect, normal mood - Skin Skin exam: Present: dry, intact, warm Internal Med - H&P Results - Labs Labs: I reviewed labs from [employer] and include the following: WBC 9.7 Hemoglobin 15.0 Hematocrit 46.7 Platelets 228 PT 12.5 INR 1.1 Sodium 138 Potassium 4.1 Chloride 104 Carbon dioxide 27 BUN 17 Creatinine 1.33 Troponin less than 0.03 - EKG Data -: EKG Interpreted by Myself - EKG Data Prior EKG available for review: no EKG comments: 04/11/18 22:51 Atrial fibrillation w RVR - Diagnostic Studies Chest x-ray Status: image reviewed by me (mild CHF findings) - Assessment and plan (1) Atrial fibrillation with rapid ventricular response Current Visit: Yes Status: Acute Assessment and plan: 1. Will treat with Cardizem drip and titrate to HR control. 2. Will trend troponins, EKG's, and order TSH to rule out thyroid disease. 3. Monitor and correct electrolytes as necessary. 4. Consult cardiology as he may be a candidate for cardioversion. 5. Continue heparin drip per ACS protocol. (2) Congestive heart failure Current Visit: Yes Status: Suspected Assessment and plan: 1. Likely due to uncontrolled atrial fibrillation over the last week. 2. Recent ECHO in October revealed normal LVEF. 3. Suspect current CHF due to high output HF due to rhythm. 4. Repeat ECHO in AM. 5. Treat with diuresis as necessary. 6. Control HR/rhythm as above. Qualifiers: Heart failure type: high output Qualified Code(s): I50.83 - High output heart failure (3) Diabetes Current Visit: Yes Status: Chronic Assessment and plan: 1. Will place on SSI and monitor glucose closely. 2. Resume home basal insulin once med list verified. 3. Adjust insulin dosing as necessary for glucose control. Qualifiers: Diabetes mellitus type: type 2 Diabetes mellitus mcfp insulin use: with mcfp use Diabetes mellitus complication status: with neurologic complications Diabetes mellitus complication detail: with polyneuropathy Qualified Code(s): E11.42 - Type 2 diabetes mellitus with diabetic polyneuropathy; Z79.4 - termite exterminator (current) use of insulin (4) DVT prophylaxis Current Visit: Yes Status: Acute Assessment and plan: 1. Heparin drip as above.
[2018-04-11 23:13] LABS: Hematocrit 45.7 % (37.5-50.1); Hemoglobin 14.5 g/dL (12.9-16.9); Mean Corpuscular HGB Conc 31.7 g/dL (31.6-35.5); Mean Corpuscular Hemoglobin 31.3 pg (28.0-33.3); Mean Corpuscular Volume 98.5 fL (83.0-100.0); Mean Platelet Volume 11.1 fL (9.4-12.4); Platelet Count 225 K/mcL (140-400); Red Blood Count 4.64 M/mcL (4.19-5.50)
[2018-04-11 23:14] LABS: Heparin anti-factor XA UFH 0.58 IU/mL (0.30-0.70)
[2018-04-11 23:15] LABS: INR 1.2; Prothrombin Time 13.2 Seconds (9.4-12.1)
[2018-04-11] MEDS: *HR* OxyCODONE Immed Rel 5 MG TABLET PO PRN (23:49)
[2018-04-12] MEDS: Gabapentin 400 MG CAPSULE PO SCH ×4 (00:24→20:14)
[2018-04-12 01:49] LABS: Basophils # 0.1 K/mcL (0.0-0.2); Basophils % 0.8 %; Hematocrit 44.3 % (37.5-50.1); Hemoglobin 14.5 g/dL (12.9-16.9); Immature Granulocytes % 0.4 % (0-4); Lymphocytes # 2.3 K/mcL (0.6-4.6); Lymphocytes % 21.7 %; Mean Corpuscular HGB Conc 32.7 g/dL (31.6-35.5); Mean Corpuscular Hemoglobin 31.7 pg (28.0-33.3); Mean Corpuscular Volume 96.7 fL (83.0-100.0); Mean Platelet Volume 11.4 fL (9.4-12.4); Monocytes # 1.1 K/mcL (0.0-1.3); Neutrophils # 6.2 K/mcL (1.6-8.9); Platelet Count 222 K/mcL (140-400); Red Blood Count 4.58 M/mcL (4.19-5.50); Red Cell Distribution Width 14.1 % (11.5-14.5); Segmented Neutrophils % 58.1 %
[2018-04-12 01:54] LABS: INR 1.1; Prothrombin Time 12.2 Seconds (9.4-12.1)
[2018-04-12 01:56] LABS: Activated Partial Thrombo Time 49.4 Seconds (26.0-36.0)
[2018-04-12 02:08] LABS: Alanine Aminotransferase 21 Units/L (7-52); Albumin 3.8 g/dL (3.5-5.7); Albumin/Globulin Ratio 1.3 (1.1-2.2); Alkaline Phosphatase 124 Units/L (34-104); Aspartate Amino Transferase 26 Units/L (13-39); BUN/Creatinine Ratio 12 (6-26); Bilirubin,Total 0.6 mg/dL (0.3-1.0); Blood Urea Nitrogen 15 mg/dL (8-23); Calcium 8.8 mg/dL (8.6-10.3); Carbon Dioxide 27 mEq/L (23-29); Chloride 101 mEq/L (98-107); Cholesterol 120 mg/dL (< 200); Glucose 175 mg/dL (70-105); HDL Cholesterol 40 mg/dL (40-59); LDL Cholesterol,Calculated 67 mg/dL (0-99); Magnesium 1.9 mg/dL (1.6-2.6); Osmolality,Calculated 293 (280-300); Potassium 3.7 mEq/L (3.5-5.1); Sodium 139 mEq/L (136-145); Total Protein 6.8 g/dL (6.4-8.9); Triglycerides 66 mg/dL (< 150); eGFR For Non-African Americans 54 (> 60)
[2018-04-12 02:21] LABS: Thyroid Stimulating Hormone 2.855 mcIU/mL (0.340-5.600)
[2018-04-12] MEDS: Heparin 25,000 UNIT/500 ML D5W 25,000 UNIT/500 ML BAG IVC SCH ×2 (02:56→23:06)
[2018-04-12] MEDS: *HR* Heparin 5,000 UNIT/ML VIAL IVP PRN (02:59)
[2018-04-12] MEDS: *HR* OxyCODONE Immed Rel 5 MG TABLET PO PRN ×3 (07:05→22:05)
[2018-04-12] MEDS ORDERED: Insulin NPH/REG 70/30 100 UNIT/ML (x5UNIT) SQ SCH (09:00)
[2018-04-12] MEDS: Insulin LISPRO 300 UNITS/3 ML VIAL SQ SCH ×3 (09:17→17:01)
--- NOTE | 2018-04-12 10:43 | Cardiology Consult Note ---
Addendum entered and electronically signed by Shlomo Hare CNP 04/12/18 13:11: On heparin gtt currently for AC. Original Note: Date of Encounter: 04/12/18 Time of Encounter: 10:43 Assessment and Plan (1) Atrial fibrillation with RVR Current Visit: Yes Status: Acute Found to be A-Fib RVR on presentation, rate 150s. New diagnosis. Presented with CHF symptoms. On Cardizem gtt 10mg/hr with HR 110s. 12 hr tele AVG HR 110, A-Fib. Continue cardizem gtt for now. Uptitrate as necessary for goal HR <100 bpm. K, Mag, TSH WNL. On cardizem gtt. [id number] (Age, HTN, DM). High CVA risk. Recommend vermin exterminator anticoagulation. Discussed Coumadin vs NOACs. Prefers NOAC. Plan to elizalde check. TTE 10/2017 EF preserved with probable moderate MR. Recheck TTE. Continue to follow. Outpt sleep study. (2) Acute exacerbation of CHF (congestive heart failure) Current Visit: Yes Status: Acute Presents with 1-2 week hx of worsening dyspnea, orthopnea, PND, LE edema. Found to be A-Fib RVR. BNP 221. CXR consistent with CHF with small pleural effusions. Recommend IV diuresis--IV Lasix 40mg BID. Mild respiratory distress currently. Recommend strict I/O, Na and fluid restriction, daily weights. TTE 10/2017 EF was preserved. Recheck. Qualifiers: Heart failure type: unspecified Qualified Code(s): I50.9 - Heart failure, unspecified (3) Elevated troponin Current Visit: Yes Status: Acute First 2 troponins were negative, then borderline 0.04 in setting of A-Fib RVR and acute CHF exacerbation. Demand ischemic, nondiagnostic for ACS. Discussion w patient/family: The assessment and plan as outlined above was discussed with the patient and/or family members who expressed understanding and agreement. All questions were answered. Thank you for involving us in the care of your patient. Please call with any questions. I will discuss all the above with Dr. Deng and make changes as necessary. History of Present Illness Consult date: 04/12/18 Requesting physician: Louie Chance Consult reason: A-Fib RVR Chief complaint: dyspnea History of present illness: Mr. Brock is a 77 year old male with PMH COPD, DM, HTN, GERD who presented with complaints of shortness of breath, orthopnea, paroxysmal nocturnal dyspnea , and edema, all of which started within the past 1-2 weeks. Found to be in A- Fib RVR on presentation and findings consistent with CHF. He was started on Cardizem drip and Lasix. Denies chest pain or palpitations. No known cardiac hx. Suffers from essential tremors and has been following with [facility] neurology. Cardiology consulted for further recs. BNP 221. Toponins negative x 2 then 0.04. Currently HR low 100s at bedside on cardizem gtt at 10mg/hr. Significant diaphoresis on exam. Per pt, has noticed mild diaphoresis at home. Prior CV testing: TTE 10/27/17: LVEF 55-60%. Mild LVDD. Increased LV wall thickness. Normal right ventricular structure and function. Probably moderate AR. No pulmonary hypertension. Past Med Surg Social Fam HX - Past Medical History Medical history: arthritis, COPD, diabetes, GERD, hypertension Additional medical history: Tremors. Psychiatric history: depression - Past Surgical History Surgical History: hip replacement, knee replacement, orthopedic, other Additional surgical history: L eft hip and Left knee replacement. - Social History Smoking Status: Never smoker Smokeless Tobacco Status: No Alcohol use: none Drug use: none - Family History Father Name: Sincere Brock Living Status: Age at : 75 Cause of : ETOH Hx Family Cardiac Disorders: No Hx Family Respiratory Disorders: Yes Mother Living Status: Hx Family Cardiac Disorders: No Medications and Allergies Gabapentin [Neurontin] 800 mg PO TID 03/06/15 [History] Insulin NPH Hum/Reg Insulin Hm [Novolin 70-30 100 Unit/ml Vial] 15 units SQ BID 03/06/15 [History] Lisinopril [Zestril] 40 mg PO DAILY 03/06/15 [History] Simvastatin [Zocor] 40 mg PO HS 03/06/15 [History] Primidone [Mysoline] 250 mg PO HS 08/31/17 [History] Albuterol Sulfate [Ventolin Hfa] 2 puff IH DAILY PRN 02/17/18 [History] OxyCODONE/APAP 10/325 [Percocet 10/325 MG] 1 tab PO QID 02/17/18 [History] Testosterone Cypionate [Depo-Testosterone] 1 ml IM Q10D 02/17/18 [History] Duloxetine HCl [Cymbalta] 60 mg PO DAILY 04/12/18 [History] Omeprazole [PriLOSEC] 20 mg PO DAILY 04/12/18 [History] 3 Allergy/AdvReac Type Severity Reaction Status Date / Time No Known Allergies Allergy Verified 08/31/17 09:08 All Systems Review: The remainder of the systems were reviewed and are negative - Cardiovascular Cardiovascular: as per HPI, diaphoresis, dyspnea at rest, dyspnea on exertion, leg edema, orthopnea, paroxysmal nocturnal dyspnea - Respiratory Respiratory: dyspnea Physical Examination Vital Signs, Last 4 Hours Temp Pulse Resp BP Pulse Ox 04/12/18 06:55 97.9 F 109 18 127/93 92 General: Conversant HEENT: Atraumatic, Normocephaly, Mucus Membranes Moist Neck: Normal carotid pulses Cardiac: Other (irregularly irregular) Lungs: Other (diminished) Neuro: Alert and responsive, No focal deficits noted Abdomen: Soft, Non-Tender Skin: No rashes noted on visualized skin Musculoskeletal: No Chest Wall Tenderness Extremities: Other (1+ BLE Edema) Results 04/12/18 00:21 04/12/18 00:21 Lab Results 04/11/18 04/11/18 04/11/18 22:53 22:53 22:53 WBC 10.7 Hgb 14.5 Hct 45.7 Plt Count 225 INR 1.2 APTT Sodium Potassium Chloride Carbon Dioxide BUN Creatinine Glucose Calcium Magnesium Total Bilirubin AST ALT Alkaline Phosphatase Troponin I 0.03 TSH 04/12/18 04/12/18 04/12/18 00:21 00:21 00:21 WBC 10.6 Hgb 14.5 Hct 44.3 Plt Count 222 INR 1.1 APTT 49.4 H Sodium 139 Potassium 3.7 Chloride 101 Carbon Dioxide 27 BUN 15 Creatinine 1.28 Glucose 175 H Calcium 8.8 Magnesium 1.9 Total Bilirubin 0.6 AST 26 ALT 21 Alkaline Phosphatase 124 H Troponin I TSH 2.855 04/12/18 04:31 WBC Hgb Hct Plt Count INR APTT Sodium Potassium Chloride Carbon Dioxide BUN Creatinine Glucose Calcium Magnesium Total Bilirubin AST ALT Alkaline Phosphatase Troponin I 0.04 H* TSH Short CBC 04/12/18 04/11/18 Range/Units 00:21 22:53 WBC 10.6 10.7 (4.3-11.1) K/mcL Hgb 14.5 14.5 (12.9-16.9) g/dL Hct 44.3 45.7 (37.5-50.1) % Plt Count 222 225 (140-400) K/mcL Neutrophils # 6.2 (1.6-8.9) K/mcL BMP 04/12/18 Range/Units 00:21 Sodium 139 (136-145) mEq/L Potassium 3.7 (3.5-5.1) mEq/L Chloride 101 (98-107) mEq/L Carbon Dioxide 27 (23-29) mEq/L BUN 15 (8-23) mg/dL Creatinine 1.28 (0.70-1.30) mg/dL Glucose 175 H (70-105) mg/dL Calcium 8.8 (8.6-10.3) mg/dL Cardiac Enzymes 04/12/18 04/11/18 Range/Units 04:31 22:53 Troponin I 0.04 H* 0.03 (< 0.04) ng/mL Liver Function 04/12/18 Range/Units 00:21 Total Bilirubin 0.6 (0.3-1.0) mg/dL AST 26 (13-39) Units/L ALT 21 (7-52) Units/L Alkaline Phosphatase 124 H (34-104) Units/L Albumin 3.8 (3.5-5.7) g/dL Active Medications Albuterol Sulfate (Albuterol Inhaler) 2 puff IH DAILYR PRN PRN Reason: Wheezing Stop: 10/12/18 00:02 Dextrose/Water (Dextrose 50% (Syg)) 25 ml IVP AD PRN PRN Reason: Hypoglycemia Stop: 10/11/18 21:46 Duloxetine HCl (Cymbalta) 40 mg PO DAILY GARRETT Stop: 10/12/18 09:01 Last Admin: 04/12/18 09:17 Dose: 40 mg Gabapentin (Neurontin) 800 mg PO TID GARRETT Stop: 10/12/18 00:16 Last Admin: 04/12/18 09:17 Dose: 800 mg Glucagon (Glucagen) 1 mg IM ONCE PRN PRN Reason: Hypoglycemia Stop: 10/11/18 21:46 Glucose (Gluctose) 15 gm PO ONCE PRN PRN Reason: Hypoglycemia Stop: 10/11/18 21:46 Glucose (Gluctose) 30 gm PO ONCE PRN PRN Reason: Hypoglycemia Stop: 10/11/18 21:46 Heparin Sodium (Porcine) (Heparin) 2,000 unit IVP Q6HR PRN; Protocol PRN Reason: SEE COMMENTS Stop: 10/11/18 21:46 Last Admin: 04/12/18 02:59 Dose: 2,000 unit Heparin Sodium (Porcine) (Heparin) 4,000 unit IVP Q6H PRN; Protocol PRN Reason: SEE COMMENTS Stop: 10/11/18 21:46 Dextrose (Dextrose 5%) 1,000 mls @ 100 mls/hr IVC .Q10H PRN PRN Reason: HYPOGLYCEMIA Stop: 10/11/18 21:46 Diltiazem HCl 50 mg/ Sodium (Chloride) 50 mls @ 5 mls/hr IVC .Q10H GARRETT PRN Reason: Protocol Stop: 10/11/18 22:31 Last Titration: 04/12/18 09:26 Dose: 12.5 mls/hr Heparin Sodium/Dextrose (Heparin 25,000 Unit/500 Ml D5w) 25,000 unit in 500 mls @ 19.97 mls/hr IVC .Q24H GARRETT; 8.3 UNIT/KG/HR PRN Reason: Protocol Stop: 10/11/18 21:46 Last Titration: 04/12/18 09:53 Dose: 10.3 unit/kg/hr, 24.782 mls/hr Insulin Human Lispro (Humalog) 0 units SQ TIDAC GARRETT PRN Reason: Protocol Stop: 10/12/18 07:31 Last Admin: 04/12/18 09:17 Dose: Not Given Insulin Isophane/Insulin Regular (Humulin 70/30 Vial) 15 unit SQ BIDWM GARRETT Stop: 10/12/18 09:01 Naloxone HCl (Narcan) 0.4 mg IVP Q2MIN PRN PRN Reason: SEE COMMENTS Stop: 10/11/18 21:46 Oxycodone HCl (Roxicodone) 5 mg PO Q6H PRN; Protocol PRN Reason: Moderate Pain Stop: 10/11/18 22:39 Last Admin: 04/12/18 07:05 Dose: 5 mg Primidone (Mysoline) 250 mg PO HS GARRETT Stop: 10/12/18 00:16 Last Admin: 04/12/18 00:24 Dose: 250 mg Simvastatin (Zocor) 10 mg PO HS GARRETT PRN Reason: Protocol Stop: 10/12/18 21:01 - Imaging and Cardiology Echo: pending, report reviewed - EKG Interpretation EKG results cardiology: personally reviewed, other (12 hr tele AVG HR 110, A-Fib ) Consult Discharge Plan - Plan Referrals: Riley Danielle MD [Primary Care Provider] -
[2018-04-12] MEDS: Furosemide 40 MG/4 ML VIAL IVP SCH ×2 (12:51→17:02)
--- NOTE | 2018-04-12 14:45 | Event Note ---
Date of Encounter: 04/12/18 Time of Encounter: 14:44 - Cardiology Event Note Eliquis elizalde check $30/month. Will not start at this time in event that pt needs LHC if EF is reduced. Continue Heparin gtt for now. Once TTE results will determine when to start Eliquis and discuss if cost is affordable.
--- NOTE | 2018-04-12 15:17 | Internal Med Progress Note ---
Hospitalist Progress Note - Encounter Date of Encounter: 04/12/18 Time of Encounter: 10:00 - Subjective Interval History: Mr. Brock is a 77 year old male who with known past medical history of COPD, diabetes, GERD, hypertension and morbid obesity patient presents in transfer from [facility] Emergency Department with new onset atrial fibrillation with rapid ventricular response there, treated with IV Cardizem drip, and transferred to [facility] for ongoing treatment and care. Patient did mention he has worsening shortness of breath from last one and a half week associated with some intermittent chest discomfort. Patient was admitted in the hospital and started him on Cardizem drip, heparin gtt as well as IV Lasix. Patient stated his symptoms are better today. Still having some shortness of breath and dyspnea on exertion. He is still on Cardizem drip - Exam Vitals: Temp Pulse Resp BP Pulse Ox 97.8 F 102 18 124/96 93 04/12/18 11:04 04/12/18 11:04 04/12/18 11:04 04/12/18 11:04 04/12/18 11:04 Exam: Gen: Alert, awake, Oriented to time,place and person Chest: Diminished breath sounds B/L, mild wheezing, mild crackles, rales + Heart: S1S2+, atrial fibrillation, No murmurs Abd: Soft, NT, BS +, No organomegaly Ext: 1-2+ edema, pulses are palpable, No calf tenderness Neuro : Benign findings Skin: No rash. - Assessment and Plan (1) Acute on chronic diastolic (congestive) heart failure Current Visit: Yes Status: Acute Assessment and Plan: Reviewed his Echo from October 2017 which is showing preserved LVEF, mild diastolic dysfunction continue IV Lasix strict I & O started him on beta gerry if blood pressure allows will consider adding ACEI 2D Echo ordered cardiology on board.. Appreciate cardiology recommendations (2) Atrial fibrillation with rapid ventricular response Current Visit: Yes Status: Inactive Assessment and Plan: Mostly triggered by CHF exacerbation new onset atrial fibrillation continue Cardizem drip will start her on PO metoprolol CHADSVASC 4.. Need anti coag on Heparin gtt for now (3) Diabetes Current Visit: Yes Status: Chronic Assessment and Plan: ADA diet ISS plus Levemir (4) DVT prophylaxis Current Visit: Yes Status: Acute Assessment and Plan: Heparin drip - Time Spent with Patient Total time spent is greater than 50% in coordination of care (as documented) at patient's floor/unit and/or counseling patient: Internal Medicine: Result - Labs CBC & Chem 7: 04/12/18 00:21 04/12/18 00:21 Labs: Short CBC 04/11/18 04/12/18 Range/Units 22:53 00:21 WBC 10.7 10.6 (4.3-11.1) K/mcL Hgb 14.5 14.5 (12.9-16.9) g/dL Hct 45.7 44.3 (37.5-50.1) % Plt Count 225 222 (140-400) K/mcL Neutrophils # 6.2 (1.6-8.9) K/mcL BMP 04/12/18 00:21 Sodium 139 Potassium 3.7 Chloride 101 Carbon Dioxide 27 BUN 15 Creatinine 1.28 Glucose 175 H Calcium 8.8 Cardiac Enzymes 04/11/18 04/12/18 04/12/18 Range/Units 22:53 04:31 10:45 Troponin I 0.03 0.04 H* 0.03 (< 0.04) ng/mL Liver Function 04/12/18 Range/Units 00:21 Total Bilirubin 0.6 (0.3-1.0) mg/dL AST 26 (13-39) Units/L ALT 21 (7-52) Units/L Alkaline Phosphatase 124 H (34-104) Units/L Albumin 3.8 (3.5-5.7) g/dL - ABG Interpretation ABG results: PT/INR, D-dimer PT 12.2 Seconds (9.4-12.1) H 04/12/18 00:21 Consult Discharge Plan - Plan Referrals: Riley Danielle MD [Primary Care Provider] - (3) Diabetes Qualifiers: Diabetes mellitus type: type 2 Diabetes mellitus correction insulin use: with correction use Diabetes mellitus complication status: with neurologic complications Diabetes mellitus complication detail: with polyneuropathy Qualified Code(s): E11.42 - Type 2 diabetes mellitus with diabetic polyneuropathy; Z79.4 - [facility] (current) use of insulin
[2018-04-12] MEDS: Insulin NPH/REG 70/30 100 UNIT/ML (x5UNIT) SQ SCH (17:01)
[2018-04-13] MEDS: *HR* OxyCODONE Immed Rel 5 MG TABLET PO PRN ×3 (07:34→21:41)
[2018-04-13] MEDS: Gabapentin 400 MG CAPSULE PO SCH ×3 (07:34→21:42)
[2018-04-13] MEDS: Furosemide 40 MG/4 ML VIAL IVP SCH ×2 (07:34→15:57)
[2018-04-13] MEDS: Insulin NPH/REG 70/30 100 UNIT/ML (x5UNIT) SQ SCH ×2 (08:19→15:56)
[2018-04-13] MEDS: Insulin LISPRO 300 UNITS/3 ML VIAL SQ SCH ×3 (08:19→17:02)
--- NOTE | 2018-04-13 11:48 | Internal Med Progress Note ---
<Tana King - Last Filed: 04/13/18 13:00> Hospitalist Progress Note - Encounter Date of Encounter: 04/13/18 Time of Encounter: 08:00 - Subjective Interval History: The patient is a very pleasant 77 year old male with a past medical history significant for COPD, DM, HTN, and essential tremor who presented to [facility] on as a transfer from [facility] with new onset atrial fib with rapid ventricular response. He is being treated with IV Cardizem, IV, Heparin and IV lasix. Cardiology is following. This is hospitalization day number 3. The patient was seen and examined at bedside this morning. No acute events were reported overnight. Yesterday, patient had a TTE because he had been experiencing signs of CHD (orthopnea, PND , dyspnea on exertion) and recent echo in October 2017 revealed normal LVEF. New echo showed LVEF of 55%, small pericardial effusion and evidence of bundle branch block. Upon exam, He states that his orthopnea and PND have improved and he feels good. Patient has not had a BM since admission and has slight lower abdominal pain. He started miralax yesterday. The patient denies any lightheadedness, dizziness, vision changes, headache, chest pain, palpitations, shortness of breath, cough, wheezing, sputum production, nausea, vomiting, bowel changes, urinary changes, edema, fever or chills. - Exam Vitals: Temp Pulse Resp BP Pulse Ox 98.1 F 101 18 105/63 95 04/13/18 08:00 04/13/18 08:00 04/13/18 08:00 04/13/18 08:00 04/13/18 08:00 Exam: Physical Exam: GENERAL: Patient is a 77 year old obesity class II male in no acute distress with appropriate affect. Alert & oriented x3. HEENT: Head is normocephalic, atraumatic, well formed. EYES: PERRLA, EOMI. MOUTH : Oropharynx clear. Mucous membranes moist. NECK: Supple, no masses, trachea midline. No JVD noted. No carotid bruits. CV: Tachycardic, Irregularly irregular rhythm. Distant heart sounds.. Normal S1 , S2 with no clicks, murmurs, gallops, or rubs. PULMONARY: Diminished breath sounds bilaterally. Symmetrical chest expansion. Scattered wheezes, rales and crackles. GI: Abdomen is soft, obese, tender to palpation in lower quadrants, positive bowel sounds x 4 present and appropriate. No peritoneal signs or guarding. No palpable masses. SKIN: Trace bilateral lower extremity edema. Lower extremity skin is intact, warm, dry, shiny, red, and hairless. NEUROLOGICAL: Alert, awake. CN II-XII grossly intact. Patient is moving all extremities and following commands appropriately. No focal deficits are noted. Muscle strength 5/5 x 4 extremities. VASCULAR/EXTREMITIES: Upper extremity pulses palpable and equal. Lower extremity pulses palpable but less so than upper extremity pulses. - Assessment and Plan (1) Acute on chronic diastolic (congestive) heart failure Current Visit: Yes Status: Acute Assessment and Plan: Patient had an Echo from October 2017 that showed preserved LVEF and mild diastolic dysfunction. He presented during this admission with worsening dyspnea , orthopnea, and paroxysmal noctural dyspnea. TTE yesterday showed LVEF of 55%. Today, patient reports his orthopnea and PND have improved. His lower extremity edema has also improved. - Cardiology consulted - recommendations appreciated - Continue IV Lasix - Strict I&O plus daily weights - Continue PO Metoprolol - BP has been in the 100s/60s. Do not believe his BP will tolerate addition of an ACEI at this time. (2) Atrial fibrillation with RVR Current Visit: Yes Status: Acute Assessment and Plan: Patient presented as transfer from [facility] with new onset A fib with RVR. He was treated with IV Cardizem before transfer. New onset Afib likely triggered by Acute exacerbation of chronic CHF. - Cardiology consulted. Patient is possibly a candidate for cardioversion since this is new onset a.fib and his rate has been relatively controlled with IV Cardizem and PO Metoprolol. - Continue IV Cardizem drip - Continue Heparin gtt - Continue PO Metoprolol - CHASVASC = 5 (1 CHF + 1 HTN + 2 Age > 75 + 1 DM) - Cardio wants patient on NOAC. They are continuing Heparin gtt until they evaluate patient today. Will switch anticoagulation after their evaluation pending no procedures are indicated. (3) Diabetes Current Visit: Yes Status: Chronic Assessment and Plan: Patient has a history of Type II DM with intermediate teacher insulin use and peripheral polyneuropathy. Patient is currently taking Neurontin 800mg TID and Novolin 70- 30 15U SQ BID at home. - Continue Neurontin 800m PO TID - Continue Humalog Low Dose Sliding Scale - Regular Insulin 15U SQ BID - Hypoglycemia protocol - Diabetic diet - Accu-checks ACHS (4) DVT prophylaxis Current Visit: Yes Status: Acute Assessment and Plan: IV Heparin Drip - Time Spent with Patient Total time spent is greater than 50% in coordination of care (as documented) at patient's floor/unit and/or counseling patient: 25 - 35 minutes Plan of Care Discussed with: patient Internal Medicine: Result - Labs CBC & Chem 7: 04/12/18 00:21 04/12/18 00:21 - ABG Interpretation ABG results: PT/INR, D-dimer PT 12.2 Seconds (9.4-12.1) H 04/12/18 00:21 - Impressions Impressions Echocardiogram Limited Views 04/11/18 22:29 Impressions: Technically sub-optimal due to poor echocardiographic windows. LVEF 55%. Normal LV chamber size and function. Atypical septal motion consistent with bundle branch block. Normal right ventricular structure and function. There is a small circumferential pericardial effusion present. There is no echocardiographic evidence of tamponade. Left Ventricular Wall Motion: Rest Echo Findings All wall segments showed normal motion. Findings: Study Quality * Technically sub-optimal due to poor echocardiographic windows. ECG Findings * Atrial fibrillation, bundle branch block. Left Ventricle * LVEF 55%. * Normal LV chamber size and function. * Atypical septal motion consistent with bundle branch block. Right Ventricle * Normal right ventricular structure and function. Aorta * Normally sized aortic root. Pericardium * There is a small circumferential pericardial effusion present. * There is no echocardiographic evidence of tamponade. Consult Discharge Plan - Plan Referrals: Riley Danielle MD [Primary Care Provider] - <Deanna Brady - Last Filed: 04/13/18 13:17> Hospitalist Progress Note - Encounter Date of Encounter: 04/13/18 - Exam Vitals: Temp Pulse Resp BP Pulse Ox 97.8 F 117 16 116/83 92 04/13/18 11:57 04/13/18 11:57 04/13/18 11:57 04/13/18 11:57 04/13/18 11:57 - Assessment and Plan (1) Acute on chronic diastolic (congestive) heart failure Current Visit: Yes Status: Acute (2) Atrial fibrillation with rapid ventricular response Current Visit: Yes Status: Inactive (3) Diabetes Current Visit: Yes Status: Chronic (4) DVT prophylaxis Current Visit: Yes Status: Acute - Time Spent with Patient Total time spent is greater than 50% in coordination of care (as documented) at patient's floor/unit and/or counseling patient: Internal Medicine: Result - Labs CBC & Chem 7: 04/12/18 00:21 04/12/18 00:21 - ABG Interpretation ABG results: PT/INR, D-dimer PT 12.2 Seconds (9.4-12.1) H 04/12/18 00:21 - Impressions Impressions Echocardiogram Limited Views 04/11/18 22:29 Impressions: Technically sub-optimal due to poor echocardiographic windows. LVEF 55%. Normal LV chamber size and function. Atypical septal motion consistent with bundle branch block. Normal right ventricular structure and function. There is a small circumferential pericardial effusion present. There is no echocardiographic evidence of tamponade. Left Ventricular Wall Motion: Rest Echo Findings All wall segments showed normal motion. Findings: Study Quality * Technically sub-optimal due to poor echocardiographic windows. ECG Findings * Atrial fibrillation, bundle branch block. Left Ventricle * LVEF 55%. * Normal LV chamber size and function. * Atypical septal motion consistent with bundle branch block. Right Ventricle * Normal right ventricular structure and function. Aorta * Normally sized aortic root. Pericardium * There is a small circumferential pericardial effusion present. * There is no echocardiographic evidence of tamponade. - Attending Attestation The history, physical exam, and medical decision making was performed by the medical student Dr. King either while I was physically present and actively involved or I personally re-performed the exam and medical decision making. I have verified the accuracy of the medical student's documentation with regards to the history, physical exam findings, and medical decision making. Mr. Brock is a 77 year old male who with known past medical history of COPD, diabetes, GERD, hypertension and morbid obesity patient presents in transfer from [facility] Emergency Department with new onset atrial fibrillation with rapid ventricular response there, treated with IV Cardizem drip, and transferred to [facility] for ongoing treatment and care. Patient did mention he has worsening shortness of breath from last one and a half week associated with some intermittent chest discomfort. Patient was admitted in the hospital and started him on Cardizem drip, heparin gtt as well as IV Lasix. Patient stated his symptoms are better today. Still having some shortness of breath and dyspnea on exertion. He is still on Cardizem drip. Over all feels better. Gen: A, A, O x 3 Chest: Diminished BS B/l, Mellissa rales Heart" S1S2+ Afib, Ext: 2+ edema a/p 1. Acute on chronic diastolic CHF exacerbation cont Lasix started on low dose BB 2. New onset Afib with RVR still in Afib rate fairly controlled on Cardizem gtt added BB May need cardioversion will talk to Card on Heparin for anti coag <Tana King - Last Filed: 04/13/18 13:00> (3) Diabetes Qualifiers: Diabetes mellitus type: type 2 Diabetes mellitus intermediate teacher insulin use: with intermediate teacher use Diabetes mellitus complication status: with neurologic complications Diabetes mellitus complication detail: with polyneuropathy Qualified Code(s): E11.42 - Type 2 diabetes mellitus with diabetic polyneuropathy; Z79.4 - skilled nursing (current) use of insulin <Deanna Brady - Last Filed: 04/13/18 13:17> (3) Diabetes Qualifiers: Diabetes mellitus type: type 2 Diabetes mellitus intermediate teacher insulin use: with intermediate teacher use Diabetes mellitus complication status: with neurologic complications Diabetes mellitus complication detail: with polyneuropathy Qualified Code(s): E11.42 - Type 2 diabetes mellitus with diabetic polyneuropathy; Z79.4 - [employer] (current) use of insulin
--- NOTE | 2018-04-13 12:26 | Cardiology Progress Note ---
Date of Encounter: 04/13/18 Time of Encounter: 10:20 Assessment and Plan (1) Acute exacerbation of CHF (congestive heart failure) Current Visit: Yes Status: Acute Presents with 1-2 week hx of worsening dyspnea, orthopnea, PND, LE edema. Found to be A-Fib RVR. BNP 221. CXR consistent with CHF with small pleural effusions. Reports baseline weight 240 lbs; up ~15 lbs. Repeat TTE 04/12/18: LVEF 55%, normal RV structure and function, small circumferential pericardial effusion without tamponade, normal wall motion. Recommend repeat TTE to the outpatient setting, 1-2 weeks, to re-evaluate effusion. On IV lasix--reports significant symptom improvement. Continue IV diuresis for additional 24 hours. Anticipate rate control will improve as patient nears euvolemia. Cumulative I&O: -1965 mL. Still with significant volume overload upon exam. Will order GEOVANNI wraps bilateral lower extremities. Recommend strict I/O, Na and fluid restriction, daily weights. Qualifiers: Heart failure type: diastolic Qualified Code(s): I50.33 - Acute on chronic diastolic (congestive) heart failure (2) Atrial fibrillation with RVR Current Visit: Yes Status: Acute Found to be A-Fib RVR on presentation, rate 150s. New diagnosis. Presented with CHF symptoms. On Cardizem gtt 15 mg/hr with HR 110s. 12 hr tele AVG HR 106, A-Fib. Continue cardizem gtt for now. Uptitrate as necessary for goal HR <100 bpm. BB added to improve rate control. Unable to increase due to hypotension. K, Mag, TSH WNL. On heparin gtt. [id number] 4 (Age, HTN, DM). High CVA risk. Recommend termite treater helper anticoagulation. Unable to start Eliquis due to severe interaction with primidone, will start Coumadin--discussed with Pharmacy and okay to start. Pharmacy to dose as inpt. Goal INR 2-3, continue heparin gtt for now. Will complete outpatient referral to [facility]. Continue to follow. Outpt sleep study. Discussion w patient/family: The assessment and plan as outlined above was discussed with the patient and/or family members who expressed understanding and agreement. All questions were answered. Thank you for involving us in the care of your patient. Please call with any questions. The patient will be discussed and reviewed with Dr. Deng; changes to be made accordingly. Subjective Principal diagnosis: Afib, dCHF exacerbation Interval history: Seen and examined. Reports dyspnea improved today, still with LE edema and increase in abdominal girth. No chest pain reported, no significant palpitations described. Objective Vital Signs, Last 4 Hours Temp Pulse Resp BP Pulse Ox 04/13/18 11:57 97.8 F 117 16 116/83 92 General: Conversant, No Apparent Distress HEENT: Atraumatic, Normocephaly, Mucus Membranes Moist Neck: No JVD Cardiac: Other (irregularly irregular) Lungs: Normal Breath Sounds Neuro: Alert and responsive Abdomen: Soft (large, distended) Skin: No rashes noted on visualized skin Musculoskeletal: No Chest Wall Tenderness Extremities: Other (+2 BLE edema to knees) Results 04/12/18 00:21 04/12/18 00:21 Active Medications Albuterol Sulfate (Albuterol Inhaler) 2 puff IH DAILYR PRN PRN Reason: Wheezing Stop: 10/12/18 00:02 Dextrose/Water (Dextrose 50% (Syg)) 25 ml IVP AD PRN PRN Reason: Hypoglycemia Stop: 10/11/18 21:46 Duloxetine HCl (Cymbalta) 40 mg PO DAILY GARRETT Stop: 10/12/18 09:01 Last Admin: 04/13/18 07:34 Dose: 40 mg Furosemide (Lasix) 40 mg IVP BIDDIURETIC GARRETT Stop: 10/12/18 11:31 Last Admin: 04/13/18 07:34 Dose: 40 mg Gabapentin (Neurontin) 800 mg PO TID GARRETT Stop: 10/12/18 00:16 Last Admin: 04/13/18 07:34 Dose: 800 mg Glucagon (Glucagen) 1 mg IM ONCE PRN PRN Reason: Hypoglycemia Stop: 10/11/18 21:46 Glucose (Gluctose) 15 gm PO ONCE PRN PRN Reason: Hypoglycemia Stop: 10/11/18 21:46 Glucose (Gluctose) 30 gm PO ONCE PRN PRN Reason: Hypoglycemia Stop: 10/11/18 21:46 Heparin Sodium (Porcine) (Heparin) 2,000 unit IVP Q6HR PRN; Protocol PRN Reason: SEE COMMENTS Stop: 10/11/18 21:46 Last Admin: 04/12/18 02:59 Dose: 2,000 unit Heparin Sodium (Porcine) (Heparin) 4,000 unit IVP Q6H PRN; Protocol PRN Reason: SEE COMMENTS Stop: 10/11/18 21:46 Dextrose (Dextrose 5%) 1,000 mls @ 100 mls/hr IVC .Q10H PRN PRN Reason: HYPOGLYCEMIA Stop: 10/11/18 21:46 Diltiazem HCl 50 mg/ Sodium (Chloride) 50 mls @ 5 mls/hr IVC .Q10H GARRETT PRN Reason: Protocol Stop: 10/11/18 22:31 Last Admin: 04/13/18 13:04 Dose: 15 mls/hr Heparin Sodium/Dextrose (Heparin 25,000 Unit/500 Ml D5w) 25,000 unit in 500 mls @ 19.97 mls/hr IVC .Q24H GARRETT; 8.3 UNIT/KG/HR PRN Reason: Protocol Stop: 10/11/18 21:46 Last Admin: 04/12/18 23:06 Dose: 10.3 unit/kg/hr, 24.782 mls/hr Insulin Human Lispro (Humalog) 0 units SQ TIDAC GARRETT PRN Reason: Protocol Stop: 10/12/18 07:31 Last Admin: 04/13/18 12:12 Dose: 6 units Insulin Isophane/Insulin Regular (Humulin 70/30 Vial) 15 unit SQ BIDWM [facility] Stop: 10/12/18 09:01 Last Admin: 04/13/18 08:19 Dose: 15 unit Metoprolol Tartrate (Lopressor) 25 mg PO BID [facility] Stop: 10/13/18 10:01 Last Admin: 04/13/18 12:17 Dose: 25 mg Naloxone HCl (Narcan) 0.4 mg IVP Q2MIN PRN PRN Reason: SEE COMMENTS Stop: 10/11/18 21:46 Oxycodone HCl (Roxicodone) 5 mg PO Q6H PRN; Protocol PRN Reason: Moderate Pain Stop: 10/11/18 22:39 Last Admin: 04/13/18 07:34 Dose: 5 mg Polyethylene Glycol (Miralax) 17 gm PO DAILY [facility] Stop: 10/12/18 12:01 Last Admin: 04/13/18 07:34 Dose: 17 gm Primidone (Mysoline) 250 mg PO HS [facility] Stop: 10/12/18 00:16 Last Admin: 04/12/18 20:14 Dose: 250 mg Simvastatin (Zocor) 10 mg PO HS GARRETT PRN Reason: Protocol Stop: 10/12/18 21:01 Last Admin: 04/12/18 20:14 Dose: 10 mg Warfarin Sodium (Coumadin Perpt) 1 each PO DAILY@1800 PRN PRN Reason: SEE COMMENTS Stop: 10/13/18 18:01 - Imaging and Cardiology Echo: report reviewed Other Results: 12 hour tele: avg EM=650 afib. - EKG Interpretation EKG results cardiology: personally reviewed Consult Discharge Plan - Plan Referrals: Riely Danielle MD [Primary Care Provider] -
[2018-04-13] MEDS: Diltiazem CD (24hr) 240 MG CAPSULE PO SCH (15:56)
[2018-04-13] MEDS: *HR* Heparin 5,000 UNIT/ML VIAL IVP PRN (15:56)
[2018-04-13] MEDS ORDERED: *HR* Warfarin 5 MG TABLET PO ONE (18:00)
[2018-04-13] MEDS ORDERED: Warfarin perPT PO PRN (18:00)
[2018-04-13] MEDS: Heparin 25,000 UNIT/500 ML D5W 25,000 UNIT/500 ML BAG IVC SCH (18:48)
[2018-04-14] MEDS: *HR* OxyCODONE Immed Rel 5 MG TABLET PO PRN ×2 (05:24→12:20)
[2018-04-14 05:46] LABS: INR 1.1; Prothrombin Time 12.2 Seconds (9.4-12.1)
[2018-04-14] MEDS: Diltiazem CD (24hr) 240 MG CAPSULE PO SCH (08:31)
[2018-04-14] MEDS: Gabapentin 400 MG CAPSULE PO SCH ×2 (08:34→17:17)
[2018-04-14] MEDS: Furosemide 40 MG/4 ML VIAL IVP SCH (08:35)
[2018-04-14] MEDS: Insulin LISPRO 300 UNITS/3 ML VIAL SQ SCH ×2 (08:36→12:23)
[2018-04-14] MEDS: Insulin NPH/REG 70/30 100 UNIT/ML (x5UNIT) SQ SCH (08:40)
[2018-04-14 10:07] LABS: Basophils # 0.1 K/mcL (0.0-0.2); Basophils % 0.7 %; Eosinophils # 1.2 K/mcL (0.0-0.6); Eosinophils % 12.7 %; Hematocrit 47.9 % (37.5-50.1); Immature Granulocytes % 0.3 % (0-4); Lymphocytes # 2.4 K/mcL (0.6-4.6); Mean Corpuscular HGB Conc 31.3 g/dL (31.6-35.5); Mean Corpuscular Hemoglobin 30.9 pg (28.0-33.3); Mean Corpuscular Volume 98.8 fL (83.0-100.0); Mean Platelet Volume 11.3 fL (9.4-12.4); Monocytes # 0.8 K/mcL (0.0-1.3); Monocytes % 8.7 %; Neutrophils # 4.7 K/mcL (1.6-8.9); Platelet Count 234 K/mcL (140-400); Red Blood Count 4.85 M/mcL (4.19-5.50); Red Cell Distribution Width 13.9 % (11.5-14.5); Segmented Neutrophils % 51.6 %
--- NOTE | 2018-04-14 10:17 | Cardiology Progress Note ---
Date of Encounter: 04/14/18 Time of Encounter: 11:00 Assessment and Plan (1) Acute exacerbation of CHF (congestive heart failure) Current Visit: Yes Status: Acute Presents with 1-2 week hx of worsening dyspnea, orthopnea, PND, LE edema. Found to be A-Fib RVR. BNP 221. CXR consistent with CHF with small pleural effusions. Reports baseline weight 240 lbs; up ~15 lbs. Repeat TTE 04/12/18: LVEF 55%, normal RV structure and function, small circumferential pericardial effusion without tamponade, normal wall motion. Recommend repeat TTE to the outpatient setting, 1-2 weeks, to re-evaluate effusion. On IV lasix--reports significant symptom improvement. Recommend low dose lasix upon discharge. Anticipate rate control will improve as patient nears euvolemia. Cumulative I&O: -2 L. CHF education discussed including importance of Na restricted diet. Recommend strict I/O, Na and fluid restriction, daily weights. Will coordinate outpatient follow-up in 2-3 weeks. Qualifiers: Heart failure type: diastolic Qualified Code(s): I50.33 - Acute on chronic diastolic (congestive) heart failure (2) Atrial fibrillation with RVR Current Visit: Yes Status: Acute Found to be A-Fib RVR on presentation, rate 150s. New diagnosis. Presented with CHF symptoms. Adequate rate control achieved yesterday and transitioned to po Cardizem/BB. Recommend stopping ACEi--can resume at decreased dose, if needed, in the outpatient setting. K, Mag, TSH WNL. On heparin gtt. [id number] 4 (Age, HTN, DM). High CVA risk. Recommend material inspector anticoagulation. Unable to start Eliquis due to severe interaction with primidone, will start Coumadin--discussed with Pharmacy and okay to start. Pharmacy to dose as inpt. Goal INR 2-3, continue heparin gtt for now. Referral completed to [facility]. Of note , discussed with Dr. Beckwith, no need to bridge with heparin gtt or lovenox. Patient reports he may stop Primidone--has f/u with [facility]. If so, can change anticoagulation to Eliquis--to be discussed in the outpatient setting. Outpt sleep study recommended. Recommend outpatient ischemic evaluation. Discussion w patient/family: The assessment and plan as outlined above was discussed with the patient and/or family members who expressed understanding and agreement. All questions were answered. Thank you for involving us in the care of your patient. Please call with any questions. The patient will be discussed and reviewed with Dr. Beckwith; changes to be made accordingly. Subjective Principal diagnosis: Afib, dCHF exacerbation Interval history: Seen and examined. Lower extremity edema significant improved today upon exam. Heart rates have remained controlled, he is eager for d/c to home. Objective Vital Signs, Last 4 Hours Temp Pulse Resp BP Pulse Ox 04/14/18 07:50 97.7 F 102 16 111/86 98 04/14/18 07:02 98.3 F 102 18 104/83 98 General: Conversant, No Apparent Distress HEENT: Atraumatic, Normocephaly Cardiac: Other (irregularly irregular) Lungs: Normal Breath Sounds Neuro: Alert and responsive Abdomen: Soft (large, non-tender) Skin: No rashes noted on visualized skin Musculoskeletal: No Chest Wall Tenderness Extremities: Normal Pulses, Other (+1 BLE/pre-tibial edema) Results 04/14/18 09:47 04/14/18 09:47 Lab Results 04/14/18 04:20 INR 1.1 Active Medications Albuterol Sulfate (Albuterol Inhaler) 2 puff IH DAILYR PRN PRN Reason: Wheezing Stop: 10/12/18 00:02 Dextrose/Water (Dextrose 50% (Syg)) 25 ml IVP AD PRN PRN Reason: Hypoglycemia Stop: 10/11/18 21:46 Diltiazem HCl (Cardizem Cd) 240 mg PO DAILY GARRETT Stop: 10/13/18 15:16 Last Admin: 04/14/18 08:31 Dose: 240 mg Duloxetine HCl (Cymbalta) 40 mg PO DAILY GARRETT Stop: 10/12/18 09:01 Last Admin: 04/14/18 08:32 Dose: 40 mg Furosemide (Lasix) 40 mg IVP BIDDIURETIC GARRETT Stop: 10/12/18 11:31 Last Admin: 04/14/18 08:35 Dose: 40 mg Gabapentin (Neurontin) 800 mg PO TID GARRETT Stop: 10/12/18 00:16 Last Admin: 04/14/18 08:34 Dose: 800 mg Glucagon (Glucagen) 1 mg IM ONCE PRN PRN Reason: Hypoglycemia Stop: 10/11/18 21:46 Glucose (Gluctose) 15 gm PO ONCE PRN PRN Reason: Hypoglycemia Stop: 10/11/18 21:46 Glucose (Gluctose) 30 gm PO ONCE PRN PRN Reason: Hypoglycemia Stop: 10/11/18 21:46 Heparin Sodium (Porcine) (Heparin) 2,000 unit IVP Q6HR PRN; Protocol PRN Reason: SEE COMMENTS Stop: 10/11/18 21:46 Last Admin: 04/13/18 15:56 Dose: 2,000 unit Heparin Sodium (Porcine) (Heparin) 4,000 unit IVP Q6H PRN; Protocol PRN Reason: SEE COMMENTS Stop: 10/11/18 21:46 Dextrose (Dextrose 5%) 1,000 mls @ 100 mls/hr IVC .Q10H PRN PRN Reason: HYPOGLYCEMIA Stop: 10/11/18 21:46 Heparin Sodium/Dextrose (Heparin 25,000 Unit/500 Ml D5w) 25,000 unit in 500 mls @ 19.97 mls/hr IVC .Q24H GARRETT; 8.3 UNIT/KG/HR PRN Reason: Protocol Stop: 10/11/18 21:46 Last Titration: 04/14/18 06:17 Dose: 12.3 unit/kg/hr, 29.594 mls/hr Insulin Human Lispro (Humalog) 0 units SQ TIDAC GARRETT PRN Reason: Protocol Stop: 10/12/18 07:31 Last Admin: 04/14/18 08:36 Dose: 2 units Insulin Isophane/Insulin Regular (Humulin 70/30 Vial) 15 unit SQ BIDWM GARRETT Stop: 10/12/18 09:01 Last Admin: 04/14/18 08:40 Dose: 15 unit Metoprolol Tartrate (Lopressor) 25 mg PO BID GARRETT Stop: 10/13/18 10:01 Last Admin: 04/14/18 08:33 Dose: 25 mg Naloxone HCl (Narcan) 0.4 mg IVP Q2MIN PRN PRN Reason: SEE COMMENTS Stop: 10/11/18 21:46 Oxycodone HCl (Roxicodone) 5 mg PO Q6H PRN; Protocol PRN Reason: Moderate Pain Stop: 10/11/18 22:39 Last Admin: 04/14/18 05:24 Dose: 5 mg Polyethylene Glycol (Miralax) 17 gm PO DAILY GARRETT Stop: 10/12/18 12:01 Last Admin: 04/14/18 08:36 Dose: 17 gm Primidone (Mysoline) 250 mg PO HS GARRETT Stop: 10/12/18 00:16 Last Admin: 04/13/18 21:41 Dose: 250 mg Simvastatin (Zocor) 10 mg PO HS GARRETT PRN Reason: Protocol Stop: 10/12/18 21:01 Last Admin: 04/13/18 21:41 Dose: 10 mg Warfarin Sodium (Coumadin Perpt) 1 each PO DAILY@1800 PRN PRN Reason: SEE COMMENTS Stop: 10/13/18 18:01 - Imaging and Cardiology Echo: report reviewed Other Results: 12 hour tele: avg HR=90 afib. - EKG Interpretation EKG results cardiology: personally reviewed Consult Discharge Plan - Plan Referrals: Riley Danielle MD [Primary Care Provider] -
[2018-04-14 10:26] LABS: Calcium 8.9 mg/dL (8.6-10.3); Potassium 3.9 mEq/L (3.5-5.1)
--- NOTE | 2018-04-14 10:30 | Discharge Summary ---
<Ramon Moffett - Last Filed: 04/14/18 14:58> - NOTES TO OUTPATIENT PROVIDER Notes to Outpatient Provider: Patient with new onset Atrial fibrillation with RVR. Started on Lopressor and diltiazem and Coumadin 4mg. INR = 1.1. Recheck on Tuesday04/17/18. Please call Dr. Brady in regards to INR level on Tuesday [phone] Orders not resulted at time of discharge: Pending orders 04/15/18 04:00 PT/INR [Prothrombin Time INR] [COAG] AM 0400 04/15/18 06:15 Heparin anti-factor XA UFH [COAG] Timed 04/16/18 04:00 PT/INR [Prothrombin Time INR] [COAG] AM 0400 04/17/18 04:00 PT/INR [Prothrombin Time INR] [COAG] AM 0400 Date of Encounter: 04/14/18 Time of Encounter: 10:30 - Discharge Diagnosis (1) Acute exacerbation of CHF (congestive heart failure) Priority: Primary Status: Acute Qualifiers: Heart failure type: diastolic Qualified Code(s): I50.33 - Acute on chronic diastolic (congestive) heart failure (2) Atrial fibrillation with RVR Priority: Primary Status: Acute (3) Diabetes Priority: Secondary Status: Chronic Qualifiers: Diabetes mellitus type: type 2 Diabetes mellitus rn long term care insulin use: with rn long term care use Diabetes mellitus complication status: with neurologic complications Diabetes mellitus complication detail: with polyneuropathy Qualified Code(s): E11.42 - Type 2 diabetes mellitus with diabetic polyneuropathy; Z79.4 - senior care (current) use of insulin Hospital course: Presented as transfer from [place] with worsening dyspnea, orthopnea, and PND. Found to have new onset A. Fib. Echo in October 2017 showed LVEF 55-60% and Mild left ventricular diastolic dysfunction. New echo showed LVEF 55%, BBB, small pericardial effusion without tamponade and normal LV/RV. Cardiology consulted and he was started on IV Lasix, IV Heparin, IV Cardizem. Cardio started him on warfarin for fci anticoagulation. Cardio recommending repeat TTE in 1-2 weeks and outpatient sleep study. Started on Coumadin 4mg PO daily, INR = 1.1. Will recheck INR on Tuesday and instructions to call Dr. Brady at for lab result. D/c ACEI due to NAVID, lasix 40mg PO daily, Continue with lopressor 50mg PO BID, diltiazem 240mg PO daily, and Home O2. Home Health referral sent. Follow up with his PCP. Dr. Brady, Hospitalist, Discharge discussed with: patient - Time Spent with Patient Total time spent providing and/or coordinating discharge services: Greater than 30 minutes - Discharge Medications Prescriptions: Diltiazem CD (24hr) [Cardizem CD] 240 mg PO DAILY #30 cap.er.24h Furosemide [Lasix] 40 mg PO DAILY #30 tablet Metoprolol [Lopressor] 50 mg PO BID #60 tablet Warfarin [Coumadin] 4 mg PO DAILY@1800 #15 tablet Home Medications: Gabapentin [Neurontin] 800 mg PO TID 03/06/15 [History] Insulin NPH Hum/Reg Insulin Hm [Novolin 70-30 100 Unit/ml Vial] 15 units SQ BID 03/06/15 [History] Simvastatin [Zocor] 40 mg PO HS 03/06/15 [History] Primidone [Mysoline] 250 mg PO HS 08/31/17 [History] Albuterol Sulfate [Ventolin Hfa] 2 puff IH DAILY PRN 02/17/18 [History] OxyCODONE/APAP 10/325 [Percocet 10/325 MG] 1 tab PO QID 02/17/18 [History] Testosterone Cypionate [Depo-Testosterone] 1 ml IM Q10D 02/17/18 [History] Duloxetine HCl [Cymbalta] 60 mg PO DAILY 04/12/18 [History] Omeprazole [PriLOSEC] 20 mg PO DAILY 04/12/18 [History] Diltiazem CD (24hr) [Cardizem CD] 240 mg PO DAILY #30 cap.er.24h 04/14/18 [Rx] Furosemide [Lasix] 40 mg PO DAILY #30 tablet 04/14/18 [Rx] Metoprolol [Lopressor] 50 mg PO BID #60 tablet 04/14/18 [Rx] Warfarin [Coumadin] 4 mg PO DAILY@1800 #15 tablet 04/14/18 [Rx] Allergies/Adverse Reactions: 3 Allergy/AdvReac Type Severity Reaction Status Date / Time No Known Allergies Allergy Verified 08/31/17 09:08 Date of admission: 04/12/18 14:37 Primary care physician: Riley Danielle MD Consults: 04/11/18 22:33 Consult to Physician [CONS] Routine Consulting Provider: Jamison Diaz Reason for Consult: new onset atrial fibrillation Call Completed: No Discharging clinician: Ramon Moffett Anticipated date of discharge: 04/14/18 - Constitutional Vitals: Temp Pulse Resp BP Pulse Ox 97.7 F 102 16 111/86 98 04/14/18 07:50 04/14/18 07:50 04/14/18 07:50 04/14/18 07:50 04/14/18 07:50 General appearance: Present: cooperative, A&O X 3, pleasant, no acute distress, answers questions appropriately Exam: Physical Exam: GENERAL: Patient is a 77 year old obesity class II male in no acute distress with appropriate affect. Alert & oriented x3. HEENT: Head is normocephalic, atraumatic, well formed. EYES: PERRLA, EOMI. MOUTH : Oropharynx clear. Mucous membranes moist. NECK: Supple, no masses, trachea midline. No JVD noted. No carotid bruits. CV: Tachycardic, Irregularly irregular rhythm. Distant heart sounds.. Normal S1 , S2 with no clicks, murmurs, gallops, or rubs. PULMONARY: Diminished breath sounds bilaterally. Symmetrical chest expansion. Scattered wheezes, rales and crackles. GI: Abdomen is soft, obese, tender to palpation in lower quadrants, positive bowel sounds x 4 present and appropriate. No peritoneal signs or guarding. No palpable masses. SKIN: Trace bilateral lower extremity edema. Lower extremity skin is intact, warm, dry, shiny, red, and hairless. NEUROLOGICAL: Alert, awake. CN II-XII grossly intact. Patient is moving all extremities and following commands appropriately. No focal deficits are noted. Muscle strength 5/5 x 4 extremities. VASCULAR/EXTREMITIES: Upper extremity pulses palpable and equal. Lower extremity pulses palpable but less so than upper extremity pulses. - Patient Status Disposition: Home Health Service Condition: Good Functional capacity at discharge: independent ambulation Overall status at discharge: patient is progressing back to baseline - Discharge Instructions Follow Up With: Riley Danielle MD [Primary Care Provider] - <Thallapaneni,Rambabu - Last Filed: 04/14/18 15:16> Orders not resulted at time of discharge: Pending orders 04/15/18 04:00 PT/INR [Prothrombin Time INR] [COAG] AM 0400 04/15/18 06:15 Heparin anti-factor XA UFH [COAG] Timed 04/16/18 04:00 PT/INR [Prothrombin Time INR] [COAG] AM 0400 04/17/18 04:00 PT/INR [Prothrombin Time INR] [COAG] AM 0400 Date of Encounter: 04/14/18 - Discharge Diagnosis (1) Acute on chronic diastolic (congestive) heart failure Status: Acute (2) Atrial fibrillation with rapid ventricular response Status: Inactive (3) Diabetes Status: Chronic Qualifiers: Diabetes mellitus type: type 2 Diabetes mellitus rn long term care insulin use: with fci use Diabetes mellitus complication status: with neurologic complications Diabetes mellitus complication detail: with polyneuropathy Qualified Code(s): E11.42 - Type 2 diabetes mellitus with diabetic polyneuropathy; Z79.4 - rn long term care (current) use of insulin (4) DVT prophylaxis Status: Acute Hospital course: Mr. Brock is a 77 year old male - Time Spent with Patient Total time spent providing and/or coordinating discharge services: Date of admission: 04/12/18 14:37 Primary care physician: Riley Danielle MD Consults: 04/11/18 22:33 Consult to Physician [CONS] Routine Consulting Provider: Jamison Diaz Reason for Consult: new onset atrial fibrillation Call Completed: No - Constitutional Vitals: Temp Pulse Resp BP Pulse Ox 97.9 F 103 26 111/92 95 04/14/18 11:35 04/14/18 11:35 04/14/18 11:35 04/14/18 11:35 04/14/18 14:38 - Attending Attestation I examined this patient and my medical decision-making was reviewed with the Resident Physician Dr. Moffett. I agree with the documented findings, disposition and treatment plan as described except to the extent set forth below. Mr. Brock is a 77 year old male who with known past medical history of COPD, diabetes, GERD, hypertension and morbid obesity patient presents in transfer from [facility] with new onset atrial fibrillation with rapid ventricular response there, treated with IV Cardizem drip, and transferred to [facility] for ongoing treatment and care. Patient did mention he has worsening shortness of breath from last one and a half week associated with some intermittent chest discomfort. Patient was admitted in the hospital and started him on Cardizem drip, heparin gtt as well as IV Lasix. Patient stated his symptoms are better today. He was started on PO Cardizem at 240mg and Metoprolol 25mg PO BID y/d, HR fairly controlled. So Inc Metoprolol to 50mg PO BID today Gen: A, A, O x 3 Chest: Diminished BS B/l, Mellissa rales Heart" S1S2+ Afib, Ext: 2+ edema a/p 1. Acute on chronic diastolic CHF exacerbation Switched to PO Lasix..Recommend to hold Lasix today and tomorrow since his Cr worsened little bit today Cont BB 2. New onset Afib with RVR still in Afib Cont Cardizem + Metoprolol on Coumadin for anti coag INR 1.1.. No need to bridge with heparin f/u with Coumadin clinic
[2018-04-14 12:06] VITALS: BP 111/92
--- NOTE | 2018-04-14 15:09 | Physician Discharge Referral ---
Home Health/Hosp Referral Info Transfer to: Home Health - Diagnosis (1) Acute exacerbation of CHF (congestive heart failure) Priority: Primary Status: Acute (2) Atrial fibrillation with RVR Priority: Primary Status: Acute (3) Diabetes Priority: Secondary Status: Chronic - Respiratory Orders Oxygen / L per min Smoking Cessation: Smoking cessation has been advised. For more information, call the [place] Tobacco Quit Line at 9-778-OXJD-NOW. - Transfer Medications Prescriptions: Diltiazem CD (24hr) [Cardizem CD] 240 mg PO DAILY #30 cap.er.24h Furosemide [Lasix] 40 mg PO DAILY #30 tablet Metoprolol [Lopressor] 50 mg PO BID #60 tablet Warfarin [Coumadin] 4 mg PO DAILY@1800 #15 tablet Home Medications: Gabapentin [Neurontin] 800 mg PO TID 03/06/15 [History] Insulin NPH Hum/Reg Insulin Hm [Novolin 70-30 100 Unit/ml Vial] 15 units SQ BID 03/06/15 [History] Simvastatin [Zocor] 40 mg PO HS 03/06/15 [History] Primidone [Mysoline] 250 mg PO HS 08/31/17 [History] Albuterol Sulfate [Ventolin Hfa] 2 puff IH DAILY PRN 02/17/18 [History] OxyCODONE/APAP 10/325 [Percocet 10/325 MG] 1 tab PO QID 02/17/18 [History] Testosterone Cypionate [Depo-Testosterone] 1 ml IM Q10D 02/17/18 [History] Duloxetine HCl [Cymbalta] 60 mg PO DAILY 04/12/18 [History] Omeprazole [PriLOSEC] 20 mg PO DAILY 04/12/18 [History] Diltiazem CD (24hr) [Cardizem CD] 240 mg PO DAILY #30 cap.er.24h 04/14/18 [Rx] Furosemide [Lasix] 40 mg PO DAILY #30 tablet 04/14/18 [Rx] Metoprolol [Lopressor] 50 mg PO BID #60 tablet 04/14/18 [Rx] Warfarin [Coumadin] 4 mg PO DAILY@1800 #15 tablet 04/14/18 [Rx] Allergies/Adverse Reactions: 3 Allergy/AdvReac Type Severity Reaction Status Date / Time No Known Allergies Allergy Verified 08/31/17 09:08 Certification: Further, I certify that my clinical findings support that this patient is homebound (i.e. absences from home require considerable and taxing effort and are for medical reasons or synagogue services or infrequently or short duration when for other reasons) because: Homebound Reason: Patient requires assistance of a person or device to safely leave home Attestation: My signature below is to certify that this patient is under my care and that I, or nurse practitioner, or a physician's retail store assistant working with me, has a face-to -face encounter with this patient.
[2018-04-14] MEDS ORDERED: *HR* Warfarin 4 MG TABLET PO SCH (18:00)
== END 2018-04-14 17:53 | disposition home health service (06) | DRG 308 ==
LOC: 2NENU
PROVIDERS: ADMIT Internal Medicine; ATTEND Internal Medicine

== ENCOUNTER 2020-02-19 08:37 | Inpatient (IN) ==
[2020-02-19] MEDS ORDERED: *HR* Dextrose 50 % in Water (Vial) 50 ML VIAL ONE (09:02)
[2020-02-19] MEDS ORDERED: 0.9 % Sodium Chloride 1,000 ML IVC SCH (09:15)
[2020-02-19 09:22] LABS: INR 2.6
[2020-02-19 10:01] VITALS: BP 127/85
== END 2020-02-19 11:12 | disposition home or self-care (01) | DRG 310 ==
LOC: 3NENU 08:37
PROVIDERS: ADMIT Internal Medicine Cardiovascular Disease; ATTEND Internal Medicine Cardiovascular Disease

== ENCOUNTER 2020-04-22 08:21 | Inpatient (IN) ==
[2020-04-22] MEDS ORDERED: 0.9 % Sodium Chloride 1,000 ML IVC SCH ×2 (08:30→16:00)
[2020-04-22] MEDS ORDERED: Lidocaine HCL 4 ML Topical Solution (Laryng-O-Jet Kit Sterile Pak) TP ONE (09:14)
[2020-04-22] MEDS ORDERED: *HR* Phenylephrine 10 MG/ML VIAL ONE (09:14)
[2020-04-22] MEDS ORDERED: *HR* Rocuronium Bromide 50 MG/5 ML VIAL ONE (09:14)
[2020-04-22] MEDS ORDERED: *HR* FentaNYL (PF) 100 MCG/2 ML VIAL IVP PRN (09:34)
[2020-04-22] MEDS ORDERED: *HR* Promethazine 25 MG/ML VIAL IVP PRN (09:34)
[2020-04-22] MEDS ORDERED: *HR* OxyCODONE Immed Rel 5 MG TABLET PO PRN (09:34)
[2020-04-22] MEDS ORDERED: Ondansetron 4 MG/2 ML VIAL IVP PRN (09:34)
[2020-04-22] MEDS ORDERED: *HR* Metoprolol 5 MG/5 ML VIAL IVP PRN (09:34)
[2020-04-22] MEDS ORDERED: Albuterol 2.5 MG/3 ML NEBULIZER IH PRN (09:34)
[2020-04-22] MEDS ORDERED: ISOVUE-370 200 ML INFUS..BTL ONE (09:57)
[2020-04-22] MEDS ORDERED: *HR* Heparin 10,000 UNIT/10 ML VIAL ONE (09:57)
[2020-04-22] MEDS ORDERED: Heparin 1,000 UNITS/500 mL 2,000 ML ONE (09:57)
[2020-04-22] MEDS ORDERED: Protamine Sulfate 50 MG/5 ML VIAL IVP ONE (09:57)
[2020-04-22] MEDS ORDERED: 0.9 % Sodium Chloride 1,000 ML ONE ×3 (09:58→14:56)
[2020-04-22] MEDS ORDERED: Perflutren Lipid Microsphere 1.3 ML in 0.9 % Sodium Chloride 8.7 ML IVP PRN (11:56)
[2020-04-22] MEDS: *HR* OxyCODONE/APAP 10/325 TABLET PO PRN ×2 (14:01→20:07)
[2020-04-22] MEDS: Gabapentin 400 MG CAPSULE PO SCH ×2 (14:02→20:06)
[2020-04-22] MEDS ORDERED: Lidocaine -MPF 2% 5 ML VIAL SQ ONE (15:12)
[2020-04-22] MEDS ORDERED: 0.9 % Sodium Chloride 10 ML PF VIAL IVP ONE (15:12)
[2020-04-22] MEDS ORDERED: Ondansetron 4 MG/2 ML VIAL IVP ONE (15:12)
[2020-04-22] MEDS ORDERED: EPHEDrine 50 MG/ML VIAL IVP ONE (15:12)
[2020-04-22] MEDS ORDERED: *HR* Propofol 200 MG/20 ML VIAL IVP ONE (15:12)
[2020-04-22] MEDS ORDERED: Insulin NPH/REG 70/30 100 UNIT/ML (x5UNIT) SQ SCH (18:00)
[2020-04-22] MEDS: *HR* Warfarin 3 MG TABLET PO SCH (18:22)
[2020-04-23] MEDS: *HR* OxyCODONE/APAP 10/325 TABLET PO PRN ×3 (02:30→15:05)
[2020-04-23 04:31] LABS: Basophils # 0.1 K/mcL (0.0-0.2); Basophils % 0.6 %; Eosinophils % 9.3 %; Hematocrit 37.9 % (37.5-50.1); Hemoglobin 10.1 g/dL (12.9-16.9); Immature Granulocytes % 0.5 % (0-4); Lymphocytes # 2.3 K/mcL (0.6-4.6); Mean Corpuscular HGB Conc 26.6 g/dL (31.6-35.5); Mean Corpuscular Hemoglobin 22.5 pg (28.0-33.3); Mean Corpuscular Volume 84.6 fL (83.0-100.0); Mean Platelet Volume 10.1 fL (9.4-12.4); Monocytes # 1.1 K/mcL (0.0-1.3); Monocytes % 10.6 %; Neutrophils # 5.9 K/mcL (1.6-8.9); Platelet Count 240 K/mcL (140-400); Red Blood Count 4.48 M/mcL (4.19-5.50); Red Cell Distribution Width 20.5 % (11.5-14.5); White Blood Count 10.3 K/mcL (4.3-11.1)
[2020-04-23 04:33] LABS: INR 1.2; Prothrombin Time 14.1 Seconds (9.4-12.1)
[2020-04-23 04:44] LABS: BUN/Creatinine Ratio 13 (6-26); Blood Urea Nitrogen 15 mg/dL (8-23); Calcium 8.1 mg/dL (8.6-10.3); Carbon Dioxide 27 mEq/L (23-29); Chloride 106 mEq/L (98-107); Glucose 49 mg/dL (70-105); Osmolality,Calculated 284 (280-300); Potassium 4.5 mEq/L (3.5-5.1); Sodium 138 mEq/L (136-145); eGFR For African Americans > 60 (> 60); eGFR For Non-African Americans 59 (> 60)
[2020-04-23 05:02] LABS: Anisocytosis 1+ (Not Present); Hypochromasia Present (Not Present); Platelet Estimate Normal (Normal)
[2020-04-23] MEDS: *HR* Warfarin 3 MG TABLET PO SCH (08:32)
[2020-04-23] MEDS: Gabapentin 400 MG CAPSULE PO SCH ×2 (08:36→15:05)
[2020-04-23] MEDS ORDERED: Multivit/Ca/Min/Fe/FA 1 TAB TABLET PO SCH (09:00)
[2020-04-23] MEDS ORDERED: Insulin NPH/REG 70/30 100 UNIT/ML (x5UNIT) SQ SCH (09:00)
[2020-04-23] MEDS ORDERED: Aspirin Enteric Coated 81 MG Tablet PO SCH (09:00)
[2020-04-23] MEDS ORDERED: DilTIAZem CD (24hr) 180 MG CAP.ER.24H PO SCH (09:00)
[2020-04-23] MEDS ORDERED: *HR* Digoxin 0.125 MG TABLET PO SCH (09:00)
[2020-04-23] MEDS ORDERED: Torsemide 20 MG TABLET PO SCH (09:00)
[2020-04-23 11:48] VITALS: BP 104/68
== END 2020-04-23 15:13 | disposition home or self-care (01) | DRG 274 ==
LOC: 2NENU 08:21 → 2NNU 13:20
PROVIDERS: ADMIT Internal Medicine Cardiovascular Disease; ATTEND Internal Medicine Cardiovascular Disease

== ENCOUNTER 2020-05-07 07:29 | Inpatient (IN) ==
[2020-05-07] MEDS ORDERED: *HR* Dextrose 50 % in Water (Vial) 50 ML VIAL ONE (09:52)
[2020-05-07] MEDS ORDERED: Naloxone 0.4 MG/ML INJ IVP PRN (10:35)
[2020-05-07 10:48] LABS: ABG Base Excess 5 mEq/L (-2 to 3); ABG HCO3 30 mEq/L (21-27); ABG Oxygen Saturation 98 % (95-98); ABG PCO2 44 mmHg (35-45); ABG PH 7.43 pH Units (7.32-7.45); ABG PO2 109 mmHg (85-104); ABG TCO2 31 mEq/L (20-26); Blood Gas VT 550 cc
[2020-05-07] MEDS: FentaNYL (PF) 1,000 MCG/100 ML IV.SOLN IVC SCH (11:42)
[2020-05-07] MEDS ORDERED: D5% in Water 1,000 ML IVC PRN (12:29)
[2020-05-07] MEDS ORDERED: *HR* Dextrose 50 % in Water (Vial) 50 ML VIAL IVP PRN (12:29)
[2020-05-07] MEDS ORDERED: Dextrose Gel 15 GM/37.5 ML TUBE PO PRN ×2 (12:29)
[2020-05-07] MEDS ORDERED: Warfarin perPT PO PRN (14:39)
[2020-05-07] MEDS: Insulin LISPRO 300 UNITS/3 ML VIAL SQ SCH (17:24)
[2020-05-07] MEDS ORDERED: *HR* Warfarin 3 MG TABLET PO SCH (18:00)
[2020-05-07] MEDS ORDERED: *HR* Warfarin 4 MG TABLET PO ONE (18:00)
[2020-05-07] MEDS: Furosemide 40 MG/4 ML VIAL IVP SCH (19:56)
[2020-05-07] MEDS: Chlorhexidine Rinse 15 ML MOUTHWASH MM SCH (20:14)
[2020-05-07] MEDS ORDERED: Furosemide 40 MG in 0.9 % Sodium Chloride 50 ML IV SCH (21:00)
[2020-05-08] MEDS: Insulin LISPRO 300 UNITS/3 ML VIAL SQ SCH ×4 (00:25→18:55)
[2020-05-08] MEDS: FentaNYL (PF) 1,000 MCG/100 ML IV.SOLN IVC SCH (04:47)
[2020-05-08 05:07] LABS: Eosinophils % 10.1 %; Mean Platelet Volume 10.5 fL (9.4-12.4); Red Cell Distribution Width 20.9 % (11.5-14.5)
[2020-05-08 05:09] LABS: Basophils # 0.1 K/mcL (0.0-0.2); Basophils % 0.6 %; Eosinophils # 1.2 K/mcL (0.0-0.6); Hematocrit 41.4 % (37.5-50.1); Hemoglobin 11.7 g/dL (12.9-16.9); Immature Granulocytes % 0.5 % (0-4); Lymphocytes # 1.6 K/mcL (0.6-4.6); Lymphocytes % 13.2 %; Mean Corpuscular HGB Conc 28.3 g/dL (31.6-35.5); Mean Corpuscular Hemoglobin 23.4 pg (28.0-33.3); Monocytes # 1.3 K/mcL (0.0-1.3); Monocytes % 10.5 %; Platelet Count 286 K/mcL (140-400); Red Blood Count 4.99 M/mcL (4.19-5.50); Segmented Neutrophils % 65.1 %; White Blood Count 12.2 K/mcL (4.3-11.1)
[2020-05-08 05:21] LABS: INR 2.6; Prothrombin Time 29.5 Seconds (9.4-12.1)
[2020-05-08 05:22] LABS: Neutrophils # 7.9 K/mcL (1.6-8.9)
[2020-05-08 05:27] LABS: BUN/Creatinine Ratio 12 (6-26); Blood Urea Nitrogen 13 mg/dL (8-23); Calcium 8.1 mg/dL (8.6-10.3); Carbon Dioxide 31 mEq/L (23-29); Chloride 100 mEq/L (98-107); Glucose 112 mg/dL (70-105); Magnesium 1.9 mg/dL (1.6-2.6); Osmolality,Calculated 291 (280-300); Potassium 3.5 mEq/L (3.5-5.1); Sodium 140 mEq/L (136-145); eGFR For African Americans > 60 (> 60); eGFR For Non-African Americans > 60 (> 60)
[2020-05-08 05:35] LABS: ABG Base Excess 6 mEq/L (-2 to 3); ABG HCO3 32 mEq/L (21-27); ABG Oxygen Saturation 96 % (95-98); ABG PCO2 51 mmHg (35-45); ABG PH 7.41 pH Units (7.32-7.45); ABG PO2 79 mmHg (85-104); ABG TCO2 34 mEq/L (20-26); Blood Gas Modality ASSIST CONTROL; Blood Gas VT 500 cc
[2020-05-08 05:50] LABS: Anisocytosis 1+ (Not Present); Hypochromasia Present (Not Present); Platelet Estimate Normal (Normal)
[2020-05-08] MEDS ORDERED: Dexmedetomidine HCl 400 MCG/100 ML MLS IVC ONE (07:31)
[2020-05-08] MEDS: Furosemide 40 MG/4 ML VIAL IVP SCH ×2 (07:34→19:59)
[2020-05-08] MEDS: Aspirin Enteric Coated 81 MG Tablet PO SCH (07:35)
[2020-05-08] MEDS: Chlorhexidine Rinse 15 ML MOUTHWASH MM SCH ×2 (07:35→19:39)
[2020-05-08] MEDS: Dexmedetomidine HCl 400 MCG/100 ML MLS IVC SCH ×4 (07:40→21:40)
[2020-05-08] MEDS ORDERED: *HR* LORazepam 2 MG/ML VIAL IVP ONE (08:11)
[2020-05-08] MEDS ORDERED: *HR* LORazepam 2 MG/ML VIAL ONE ×2 (08:13→17:41)
[2020-05-08] MEDS ORDERED: *HR* Metoprolol 5 MG/5 ML VIAL IVP ONE ×3 (08:53→21:47)
[2020-05-08] MEDS ORDERED: DilTIAZem CD (24hr) 180 MG CAP.ER.24H PO SCH (09:00)
[2020-05-08] MEDS: DilTIAZem 50 MG/50 ML IV.SOLN IVC SCH ×2 (09:04→20:13)
[2020-05-08] MEDS ORDERED: Thiamine (B-1) 100 MG in 0.9 % Sodium Chloride 50 ML IVPB ONE (10:54)
[2020-05-08 11:01] LABS: Bacteria,Urine Few per hpf (None-Few); Bilirubin,Urine Negative (Negative); Blood,Urine Moderate (Negative); Clarity,Urine Turbid (Clear); Color,Urine Yellow (Yellow); Glucose,Urine (UA) Normal (Normal); Hyaline Casts,Urine Few per lpf (None Seen); Ketones,Urine Trace mg/dL (Negative); Leukocyte Esterase,Urine Moderate (Negative); Mucus,Urine Few per lpf (None-Few); Nitrite,Urine Negative (Negative); Protein,Urine 50 mg/dL (Neg-Trace); RBC,Urine TNTC per hpf (0-3); Specific Gravity,Urine 1.021 (1.010-1.025); WBC,Urine 30-50 per hpf (0-3)
[2020-05-08 15:48] LABS: Folate 12.9 ng/mL (3.0-16.0)
[2020-05-08] MEDS ORDERED: Haloperidol Lactate 5 MG/ML VIAL IVP PRN (17:29)
[2020-05-08] MEDS ORDERED: Haloperidol Lactate 5 MG/ML VIAL IVP ONE (17:38)
[2020-05-08] MEDS ORDERED: *HR* LORazepam 2 MG/ML VIAL IVP PRN (17:39)
[2020-05-08] MEDS ORDERED: *HR* Warfarin 4 MG TABLET PO SCH (18:00)
[2020-05-08] MEDS ORDERED: *HR* Warfarin 5 MG TABLET PO ONE (18:00)
[2020-05-08] MEDS: *HR* Digoxin 0.125 MG TABLET PO SCH (18:15)
[2020-05-08] MEDS: *HR* LORazepam 2 MG/ML VIAL IVP PRN (19:30)
[2020-05-09] MEDS: Insulin LISPRO 300 UNITS/3 ML VIAL SQ SCH ×4 (00:03→20:47)
[2020-05-09] MEDS: Dexmedetomidine HCl 400 MCG/100 ML MLS IVC SCH ×4 (00:43→13:09)
[2020-05-09 05:16] LABS: Basophils % 0.4 %; Immature Granulocytes % 0.4 % (0-4)
[2020-05-09 05:17] LABS: Eosinophils # 0.6 K/mcL (0.0-0.6); Eosinophils % 5.9 %; Hematocrit 41.2 % (37.5-50.1); Hemoglobin 11.2 g/dL (12.9-16.9); Lymphocytes # 1.7 K/mcL (0.6-4.6); Lymphocytes % 16.4 %; Mean Corpuscular HGB Conc 27.2 g/dL (31.6-35.5); Mean Corpuscular Hemoglobin 22.5 pg (28.0-33.3); Mean Corpuscular Volume 82.9 fL (83.0-100.0); Mean Platelet Volume 10.8 fL (9.4-12.4); Monocytes # 1.2 K/mcL (0.0-1.3); Monocytes % 11.4 %; Neutrophils # 6.8 K/mcL (1.6-8.9); Platelet Count 263 K/mcL (140-400); Red Blood Count 4.97 M/mcL (4.19-5.50); Red Cell Distribution Width 20.4 % (11.5-14.5); Segmented Neutrophils % 65.5 %; White Blood Count 10.4 K/mcL (4.3-11.1)
[2020-05-09 05:23] LABS: INR 3.2; Prothrombin Time 35.3 Seconds (9.4-12.1)
[2020-05-09 05:38] LABS: BUN/Creatinine Ratio 17 (6-26); Blood Urea Nitrogen 20 mg/dL (8-23); Carbon Dioxide 30 mEq/L (23-29); Chloride 100 mEq/L (98-107); Glucose 147 mg/dL (70-105); Magnesium 1.9 mg/dL (1.6-2.6); Osmolality,Calculated 293 (280-300); Potassium 3.4 mEq/L (3.5-5.1); Sodium 139 mEq/L (136-145); eGFR For African Americans > 60 (> 60); eGFR For Non-African Americans 58 (> 60)
[2020-05-09 06:51] LABS: Anisocytosis 2+ (Not Present); Platelet Estimate Normal (Normal)
[2020-05-09 06:52] LABS: Hypochromasia Present (Not Present)
[2020-05-09] MEDS: Chlorhexidine Rinse 15 ML MOUTHWASH MM SCH (08:14)
[2020-05-09] MEDS: *HR* Digoxin 0.125 MG TABLET PO SCH (08:54)
[2020-05-09] MEDS: Aspirin Enteric Coated 81 MG Tablet PO SCH (08:54)
[2020-05-09] MEDS ORDERED: Thiamine (B-1) 100 MG in 0.9 % Sodium Chloride 50 ML IVPB SCH (09:00)
[2020-05-09] MEDS ORDERED: QUEtiapine Fumarate 25 MG TABLET PO SCH (09:15)
[2020-05-09] MEDS: Furosemide 40 MG/4 ML VIAL IVP SCH (09:35)
[2020-05-09] MEDS ORDERED: cefTRIAXone 1,000 MG in Water for inj. (sterile) 10 ML IVP SCH (12:00)
[2020-05-09] MEDS ORDERED: QUEtiapine Fumarate 25 MG TABLET PO PRN ×2 (12:00→17:45)
[2020-05-09] MEDS ORDERED: Insulin LISPRO 300 UNITS/3 ML VIAL SQ SCH ×4 (12:00→21:00)
[2020-05-09] MEDS ORDERED: DilTIAZem CD (24hr) 180 MG CAP.ER.24H PO SCH (16:45)
[2020-05-09] MEDS ORDERED: Furosemide 40 MG TABLET PO SCH (17:00)
[2020-05-09] MEDS: *HR* LORazepam 2 MG/ML VIAL IVP PRN (17:11)
[2020-05-09] MEDS ORDERED: D5% in Water 1,000 ML IVC PRN (17:45)
[2020-05-09] MEDS ORDERED: Naloxone 0.4 MG/ML INJ IVP PRN (17:45)
[2020-05-09] MEDS ORDERED: Warfarin perPT PO PRN (17:45)
[2020-05-09] MEDS ORDERED: *HR* Dextrose 50 % in Water (Vial) 50 ML VIAL IVP PRN (17:45)
[2020-05-09] MEDS ORDERED: Dextrose Gel 15 GM/37.5 ML TUBE PO PRN ×2 (17:45)
[2020-05-09] MEDS ORDERED: Dexmedetomidine HCl 400 MCG/100 ML MLS IVC SCH (17:45)
[2020-05-09] MEDS ORDERED: *HR* Warfarin 1 MG TABLET PO ONE ×2 (18:00)
[2020-05-09] MEDS ORDERED: Haloperidol Lactate 5 MG/ML VIAL IVP ONE (22:01)
[2020-05-09] MEDS ORDERED: Ziprasidone 10 MG in Water for inj. (sterile) 0.5 ML IM ONE (23:12)
[2020-05-09] MEDS: Acetaminophen IV 500 MG/50 ML INFUS..BTL IVPB SCH (23:45)
[2020-05-10] MEDS ORDERED: *HR* Metoprolol 5 MG/5 ML VIAL IVP ONE (00:09)
[2020-05-10] MEDS ORDERED: Acetaminophen IV 500 MG/50 ML INFUS..BTL IVPB ONE (01:04)
[2020-05-10] MEDS: DilTIAZem 50 MG/50 ML IV.SOLN IVC SCH ×5 (01:35→21:15)
[2020-05-10] MEDS: Aspirin Enteric Coated 81 MG Tablet PO SCH (08:07)
[2020-05-10] MEDS: QUEtiapine Fumarate 25 MG TABLET PO SCH ×2 (08:07→20:20)
[2020-05-10] MEDS: Furosemide 40 MG TABLET PO SCH ×2 (08:07→16:46)
[2020-05-10] MEDS: Insulin LISPRO 300 UNITS/3 ML VIAL SQ SCH ×4 (08:08→20:21)
[2020-05-10] MEDS: Acetaminophen IV 500 MG/50 ML INFUS..BTL IVPB SCH ×3 (08:08→22:54)
[2020-05-10] MEDS: *HR* Digoxin 0.125 MG TABLET PO SCH (08:12)
[2020-05-10] MEDS ORDERED: Thiamine (B-1) 100 MG in 0.9 % Sodium Chloride 50 ML IVPB SCH (09:00)
[2020-05-10] MEDS ORDERED: QUEtiapine Fumarate 25 MG TABLET PO SCH (09:00)
[2020-05-10 11:48] LABS: Basophils # 0.1 K/mcL (0.0-0.2); Basophils % 0.3 %; Eosinophils # 0.4 K/mcL (0.0-0.6); Eosinophils % 2.6 %; Hematocrit 37.8 % (37.5-50.1); Hemoglobin 10.8 g/dL (12.9-16.9); Immature Granulocytes % 0.5 % (0-4); Lymphocytes # 1.6 K/mcL (0.6-4.6); Lymphocytes % 10.8 %; Mean Corpuscular HGB Conc 28.6 g/dL (31.6-35.5); Mean Corpuscular Volume 80.4 fL (83.0-100.0); Mean Platelet Volume 10.2 fL (9.4-12.4); Monocytes # 1.5 K/mcL (0.0-1.3); Monocytes % 9.7 %; Neutrophils # 11.5 K/mcL (1.6-8.9); Platelet Count 250 K/mcL (140-400); Segmented Neutrophils % 76.1 %; White Blood Count 15.1 K/mcL (4.3-11.1)
[2020-05-10 11:55] LABS: INR 4.9; Prothrombin Time 53.8 Seconds (9.4-12.1)
[2020-05-10] MEDS ORDERED: cefTRIAXone 1,000 MG in Water for inj. (sterile) 10 ML IVP SCH (12:00)
[2020-05-10 12:04] LABS: BUN/Creatinine Ratio 15 (6-26); Blood Urea Nitrogen 18 mg/dL (8-23); Calcium 8.2 mg/dL (8.6-10.3); Carbon Dioxide 27 mEq/L (23-29); Chloride 94 mEq/L (98-107); Glucose 294 mg/dL (70-105); Magnesium 1.9 mg/dL (1.6-2.6); Osmolality,Calculated 283 (280-300); Potassium 3.2 mEq/L (3.5-5.1); Sodium 130 mEq/L (136-145); eGFR For African Americans > 60 (> 60); eGFR For Non-African Americans 56 (> 60)
[2020-05-10] MEDS ORDERED: cefTRIAXone 1,000 MG in Water for inj. (sterile) 10 ML IVP ONE (12:08)
[2020-05-10 12:19] LABS: Hypochromasia Present (Not Present)
[2020-05-10 12:20] LABS: Platelet Estimate Normal (Normal)
[2020-05-11] MEDS ORDERED: Melatonin 3 MG TABLET PO PRN (01:44)
[2020-05-11] MEDS: DilTIAZem 50 MG/50 ML IV.SOLN IVC SCH ×4 (01:56→14:03)
[2020-05-11] MEDS: Haloperidol Lactate 5 MG/ML VIAL IM PRN ×3 (02:32→20:33)
[2020-05-11] MEDS ORDERED: *HR* Metoprolol 5 MG/5 ML VIAL IVP ONE (03:15)
[2020-05-11 06:13] LABS: Basophils # 0.1 K/mcL (0.0-0.2); Basophils % 0.4 %; Eosinophils # 0.4 K/mcL (0.0-0.6); Eosinophils % 2.7 %; Hematocrit 38.1 % (37.5-50.1); Hemoglobin 11.1 g/dL (12.9-16.9); Immature Granulocytes % 0.6 % (0-4); Lymphocytes # 1.4 K/mcL (0.6-4.6); Lymphocytes % 8.8 %; Mean Corpuscular HGB Conc 29.1 g/dL (31.6-35.5); Mean Corpuscular Hemoglobin 23.6 pg (28.0-33.3); Mean Corpuscular Volume 80.9 fL (83.0-100.0); Mean Platelet Volume 11.1 fL (9.4-12.4); Monocytes # 1.5 K/mcL (0.0-1.3); Monocytes % 9.2 %; Neutrophils # 12.4 K/mcL (1.6-8.9); Platelet Count 292 K/mcL (140-400); Red Blood Count 4.71 M/mcL (4.19-5.50); Red Cell Distribution Width 19.9 % (11.5-14.5); Segmented Neutrophils % 78.3 %; White Blood Count 15.8 K/mcL (4.3-11.1)
[2020-05-11 06:25] LABS: Prothrombin Time 33.4 Seconds (9.4-12.1)
[2020-05-11 06:36] LABS: BUN/Creatinine Ratio 13 (6-26); Blood Urea Nitrogen 16 mg/dL (8-23); Calcium 8.9 mg/dL (8.6-10.3); Carbon Dioxide 25 mEq/L (23-29); Chloride 96 mEq/L (98-107); Glucose 244 mg/dL (70-105); Magnesium 1.9 mg/dL (1.6-2.6); Osmolality,Calculated 287 (280-300); Sodium 134 mEq/L (136-145); eGFR For African Americans > 60 (> 60); eGFR For Non-African Americans 54 (> 60)
[2020-05-11] MEDS: Aspirin Enteric Coated 81 MG Tablet PO SCH (08:24)
[2020-05-11] MEDS: *HR* Digoxin 0.125 MG TABLET PO SCH (08:24)
[2020-05-11] MEDS: Furosemide 40 MG TABLET PO SCH ×2 (08:24→16:07)
[2020-05-11] MEDS: QUEtiapine Fumarate 25 MG TABLET PO SCH ×2 (08:24→20:33)
[2020-05-11] MEDS: Acetaminophen IV 500 MG/50 ML INFUS..BTL IVPB SCH ×2 (08:26→14:48)
[2020-05-11] MEDS: Insulin LISPRO 300 UNITS/3 ML VIAL SQ SCH ×4 (08:31→20:34)
[2020-05-11] MEDS: cefTRIAXone 2,000 MG in Water for inj. (sterile) 20 ML IVP SCH (11:07)
[2020-05-11] MEDS ORDERED: Metoprolol XL (24 HR) Succ 50 MG TAB.ER.24H PO SCH ×2 (11:15→21:00)
[2020-05-11] MEDS ORDERED: *HR* Warfarin 3 MG TABLET PO ONE (18:00)
[2020-05-11] MEDS: Gabapentin 400 MG CAPSULE PO SCH (20:32)
[2020-05-11] MEDS: Melatonin 3 MG TABLET PO SCH (20:33)
[2020-05-11] MEDS: Metoprolol XL (24 HR) Succ 50 MG TAB.ER.24H PO SCH (20:33)
[2020-05-11] MEDS: *HR* OxyCODONE/APAP 10/325 TABLET PO PRN (22:13)
[2020-05-12] MEDS: Acetaminophen IV 500 MG/50 ML INFUS..BTL IVPB SCH ×2 (00:05→08:38)
[2020-05-12] MEDS: *HR* OxyCODONE/APAP 10/325 TABLET PO PRN ×2 (04:23→14:58)
[2020-05-12 05:44] LABS: INR 2.3
[2020-05-12 05:52] LABS: Eosinophils % 10.7 %
[2020-05-12 05:53] LABS: BUN/Creatinine Ratio 13 (6-26); Blood Urea Nitrogen 15 mg/dL (8-23); Calcium 8.7 mg/dL (8.6-10.3); Carbon Dioxide 25 mEq/L (23-29); Chloride 99 mEq/L (98-107); Glucose 186 mg/dL (70-105); Osmolality,Calculated 286 (280-300); Potassium 3.5 mEq/L (3.5-5.1); Sodium 135 mEq/L (136-145); eGFR For African Americans > 60 (> 60); eGFR For Non-African Americans 58 (> 60)
[2020-05-12 05:54] LABS: Basophils # 0.1 K/mcL (0.0-0.2); Basophils % 0.7 %; Eosinophils # 1.2 K/mcL (0.0-0.6); Hematocrit 38.9 % (37.5-50.1); Immature Granulocytes % 0.5 % (0-4); Lymphocytes # 1.6 K/mcL (0.6-4.6); Lymphocytes % 13.7 %; Mean Corpuscular HGB Conc 28.3 g/dL (31.6-35.5); Mean Corpuscular Hemoglobin 22.9 pg (28.0-33.3); Monocytes # 1.3 K/mcL (0.0-1.3); Monocytes % 11.6 %; Neutrophils # 7.2 K/mcL (1.6-8.9); Platelet Count 294 K/mcL (140-400); Red Cell Distribution Width 20.2 % (11.5-14.5); Segmented Neutrophils % 62.8 %; White Blood Count 11.5 K/mcL (4.3-11.1)
[2020-05-12 06:55] LABS: Hypochromasia Present (Not Present); Platelet Estimate Normal (Normal)
[2020-05-12] MEDS: Insulin LISPRO 300 UNITS/3 ML VIAL SQ SCH ×4 (08:37→20:50)
[2020-05-12] MEDS: Aspirin Enteric Coated 81 MG Tablet PO SCH (08:39)
[2020-05-12] MEDS: Furosemide 40 MG TABLET PO SCH ×2 (08:39→17:42)
[2020-05-12] MEDS: Gabapentin 400 MG CAPSULE PO SCH ×3 (08:39→20:49)
[2020-05-12] MEDS: *HR* Digoxin 0.125 MG TABLET PO SCH (08:39)
[2020-05-12] MEDS: QUEtiapine Fumarate 25 MG TABLET PO SCH ×2 (08:39→20:50)
[2020-05-12] MEDS: Metoprolol XL (24 HR) Succ 50 MG TAB.ER.24H PO SCH ×2 (08:40→20:50)
[2020-05-12] MEDS: cefTRIAXone 2,000 MG in Water for inj. (sterile) 20 ML IVP SCH (12:16)
[2020-05-12] MEDS ORDERED: *HR* Warfarin 2 MG TABLET PO ONE (18:00)
[2020-05-12] MEDS: Melatonin 3 MG TABLET PO SCH (20:49)
[2020-05-12] MEDS: Insulin DETEMIR 100 UNIT/ML X5UNITS SQ SCH (20:50)
[2020-05-13 05:46] LABS: INR 1.9; Prothrombin Time 21.5 Seconds (9.4-12.1)
[2020-05-13] MEDS: *HR* OxyCODONE/APAP 10/325 TABLET PO PRN ×3 (05:47→19:12)
[2020-05-13] MEDS: Insulin LISPRO 300 UNITS/3 ML VIAL SQ SCH ×4 (09:30→21:07)
[2020-05-13] MEDS: Metoprolol XL (24 HR) Succ 50 MG TAB.ER.24H PO SCH ×2 (09:31→21:06)
[2020-05-13] MEDS: Gabapentin 400 MG CAPSULE PO SCH ×3 (09:31→21:05)
[2020-05-13] MEDS: *HR* Digoxin 0.125 MG TABLET PO SCH (09:31)
[2020-05-13] MEDS: Aspirin Enteric Coated 81 MG Tablet PO SCH (09:31)
[2020-05-13] MEDS: Furosemide 40 MG TABLET PO SCH ×2 (09:31→15:55)
[2020-05-13] MEDS: QUEtiapine Fumarate 25 MG TABLET PO SCH ×2 (09:32→21:06)
[2020-05-13] MEDS: cefTRIAXone 2,000 MG in Water for inj. (sterile) 20 ML IVP SCH (11:03)
[2020-05-13] MEDS: DilTIAZem CD (24hr) 120 MG CAP.ER.24H PO SCH (12:24)
[2020-05-13] MEDS ORDERED: *HR* Warfarin 2 MG TABLET PO ONE (18:00)
[2020-05-13] MEDS: Melatonin 3 MG TABLET PO SCH (21:06)
[2020-05-13] MEDS: Insulin DETEMIR 100 UNIT/ML X5UNITS SQ SCH (21:07)
[2020-05-14] MEDS: *HR* OxyCODONE/APAP 10/325 TABLET PO PRN ×3 (02:44→20:56)
[2020-05-14 07:00] LABS: Mean Platelet Volume 10.1 fL (9.4-12.4)
[2020-05-14 07:02] LABS: Basophils # 0.1 K/mcL (0.0-0.2); Basophils % 0.8 %; Eosinophils # 1.5 K/mcL (0.0-0.6); Eosinophils % 16.3 %; Hematocrit 40.8 % (37.5-50.1); Hemoglobin 11.5 g/dL (12.9-16.9); Immature Granulocytes % 0.5 % (0-4); Lymphocytes # 1.9 K/mcL (0.6-4.6); Lymphocytes % 20.7 %; Mean Corpuscular HGB Conc 28.2 g/dL (31.6-35.5); Mean Corpuscular Hemoglobin 23.2 pg (28.0-33.3); Mean Corpuscular Volume 82.3 fL (83.0-100.0); Monocytes # 1.1 K/mcL (0.0-1.3); Monocytes % 11.7 %; Neutrophils # 4.7 K/mcL (1.6-8.9); Platelet Count 328 K/mcL (140-400); Red Blood Count 4.96 M/mcL (4.19-5.50); Red Cell Distribution Width 20.3 % (11.5-14.5); White Blood Count 9.3 K/mcL (4.3-11.1)
[2020-05-14 07:10] LABS: INR 1.7; Prothrombin Time 19.6 Seconds (9.4-12.1)
[2020-05-14 07:23] LABS: BUN/Creatinine Ratio 18 (6-26); Blood Urea Nitrogen 24 mg/dL (8-23); Calcium 8.7 mg/dL (8.6-10.3); Carbon Dioxide 27 mEq/L (23-29); Chloride 100 mEq/L (98-107); Glucose 109 mg/dL (70-105); Osmolality,Calculated 287 (280-300); Potassium 3.5 mEq/L (3.5-5.1); Sodium 136 mEq/L (136-145); eGFR For African Americans > 60 (> 60); eGFR For Non-African Americans 52 (> 60)
[2020-05-14] MEDS: Insulin LISPRO 300 UNITS/3 ML VIAL SQ SCH ×4 (07:34→21:25)
[2020-05-14 07:49] LABS: Anisocytosis 2+ (Not Present); Hypochromasia Present (Not Present); Platelet Estimate Normal (Normal)
[2020-05-14] MEDS: DilTIAZem CD (24hr) 120 MG CAP.ER.24H PO SCH (09:30)
[2020-05-14] MEDS: Aspirin Enteric Coated 81 MG Tablet PO SCH (09:30)
[2020-05-14] MEDS: Metoprolol XL (24 HR) Succ 50 MG TAB.ER.24H PO SCH ×2 (09:30→20:58)
[2020-05-14] MEDS: *HR* Digoxin 0.125 MG TABLET PO SCH (09:30)
[2020-05-14] MEDS: QUEtiapine Fumarate 25 MG TABLET PO SCH ×2 (09:30→20:56)
[2020-05-14] MEDS: Gabapentin 400 MG CAPSULE PO SCH ×3 (09:31→20:56)
[2020-05-14] MEDS: cefTRIAXone 2,000 MG in Water for inj. (sterile) 20 ML IVP SCH (11:34)
[2020-05-14] MEDS: Finasteride 5 MG TABLET PO SCH (13:28)
[2020-05-14 17:43] LABS: Adenovirus Not Detected (Not Detect); Coronavirus 229E Not Detected (Not Detect); Coronavirus HKU1 Not Detected (Not Detect); Coronavirus NL63 Not Detected (Not Detect); Coronavirus OC43 Not Detected (Not Detect); Human Metapneumovirus Not Detected (Not Detect)
[2020-05-14 17:44] LABS: Bordetella Pertussis Not Detected (Not Detect); Chlamydophila pneumoniae Not Detected (Not Detect); Human Rhinovirus/Enterovirus Not Detected (Not Detect); Influenza A Subtype 2009 H1 Not Detected (Not Detect); Influenza B Not Detected (Not Detect); Mycoplasma pneumoniae Not Detected (Not Detect); Parainfluenza Virus 1 Not Detected (Not Detect); Parainfluenza Virus 2 Not Detected (Not Detect); Parainfluenza Virus 3 Not Detected (Not Detect); Parainfluenza Virus 4 Not Detected (Not Detect); Respiratory Syncytial Virus Not Detected (Not Detect); SARS-CoV-2 Not Detected (Not Detect)
[2020-05-14] MEDS ORDERED: *HR* Warfarin 3 MG TABLET PO ONE (18:00)
[2020-05-14] MEDS: Melatonin 3 MG TABLET PO SCH (20:55)
[2020-05-14] MEDS: Insulin DETEMIR 100 UNIT/ML X5UNITS SQ SCH (20:58)
[2020-05-15] MEDS: *HR* OxyCODONE/APAP 10/325 TABLET PO PRN (02:56)
[2020-05-15 05:07] LABS: INR 1.9; Prothrombin Time 22.1 Seconds (9.4-12.1)
[2020-05-15 05:35] LABS: BUN/Creatinine Ratio 20 (6-26); Blood Urea Nitrogen 27 mg/dL (8-23); Calcium 8.8 mg/dL (8.6-10.3); Carbon Dioxide 31 mEq/L (23-29); Chloride 97 mEq/L (98-107); Glucose 216 mg/dL (70-105); Magnesium 2.1 mg/dL (1.6-2.6); Osmolality,Calculated 290 (280-300); Potassium 3.9 mEq/L (3.5-5.1); Sodium 134 mEq/L (136-145); eGFR For African Americans > 60 (> 60); eGFR For Non-African Americans 50 (> 60)
[2020-05-15 07:39] VITALS: BP 100/64
[2020-05-15] MEDS: Finasteride 5 MG TABLET PO SCH (08:54)
[2020-05-15] MEDS: Aspirin Enteric Coated 81 MG Tablet PO SCH (08:54)
[2020-05-15] MEDS: QUEtiapine Fumarate 25 MG TABLET PO SCH (08:55)
[2020-05-15] MEDS: Gabapentin 400 MG CAPSULE PO SCH (08:55)
[2020-05-15] MEDS: Metoprolol XL (24 HR) Succ 50 MG TAB.ER.24H PO SCH (08:55)
[2020-05-15] MEDS: *HR* Digoxin 0.125 MG TABLET PO SCH (08:55)
[2020-05-15] MEDS: DilTIAZem CD (24hr) 120 MG CAP.ER.24H PO SCH (08:55)
[2020-05-15] MEDS: Insulin LISPRO 300 UNITS/3 ML VIAL SQ SCH (08:56)
[2020-05-15] MEDS ORDERED: *HR* Warfarin 4 MG TABLET PO ONE (18:00)
== END 2020-05-15 12:20 | disposition home health service (06) | DRG 871 ==
LOC: ICNU 09:26 → 3ANU 05-09 17:43
PROVIDERS: ADMIT Internal Medicine; ATTEND Internal Medicine

== ENCOUNTER 2020-10-20 20:43 | Inpatient (IN) ==
[2020-10-20 21:22] LABS: Basophils # 0.1 K/mcL (0.0-0.2); Basophils % 0.4 %; Eosinophils # 0.1 K/mcL (0.0-0.6); Eosinophils % 0.9 %; Hematocrit 42.6 % (37.5-50.1); Hemoglobin 14.1 g/dL (12.9-16.9); Immature Granulocytes % 1.1 % (0-4); Lymphocytes # 0.9 K/mcL (0.6-4.6); Lymphocytes % 6.6 %; Mean Corpuscular HGB Conc 33.1 g/dL (31.6-35.5); Mean Corpuscular Hemoglobin 34.4 pg (28.0-33.3); Mean Corpuscular Volume 103.9 fL (83.0-100.0); Monocytes # 0.7 K/mcL (0.0-1.3); Monocytes % 5.2 %; Platelet Count 212 K/mcL (140-400); Red Cell Distribution Width 12.8 % (11.5-14.5); Segmented Neutrophils % 85.8 %
[2020-10-20 21:29] LABS: INR 1.2; Prothrombin Time 13.4 Seconds (9.4-12.1)
[2020-10-20 21:32] LABS: Activated Partial Thrombo Time 30.2 Seconds (26.0-36.0)
[2020-10-20 21:46] LABS: Alanine Aminotransferase 73 Units/L (7-52); Albumin/Globulin Ratio 1.1 (1.1-2.2); Alkaline Phosphatase 272 Units/L (34-104); Aspartate Amino Transferase 86 Units/L (13-39); BUN/Creatinine Ratio 18 (6-26); Bilirubin,Direct 0.7 mg/dL (0.0-0.2); Bilirubin,Indirect 0.7 mg/dL (0.0-1.0); Bilirubin,Total 1.4 mg/dL (0.3-1.0); Blood Urea Nitrogen 19 mg/dL (8-23); Calcium 9.5 mg/dL (8.6-10.3); Carbon Dioxide 30 mEq/L (23-29); Chloride 98 mEq/L (98-107); Globulin 3.7 g/dL (2.4-3.5); Glucose 270 mg/dL (70-105); Osmolality,Calculated 292 (280-300); Sodium 135 mEq/L (136-145); Total Protein 7.7 g/dL (6.4-8.9); eGFR For African Americans > 60 (> 60); eGFR For Non-African Americans > 60 (> 60)
[2020-10-20 21:47] LABS: Troponin I 0.03 ng/mL (< 0.04)
[2020-10-20] MEDS ORDERED: Isovue-370 500 ML BOTTLE IVP ONE (21:56)
[2020-10-20] MEDS ORDERED: 0.9 % Sodium Chloride 1,000 ML IV ONE (21:57)
[2020-10-20] MEDS ORDERED: Acetaminophen 325 MG TABLET PO ONE (22:15)
[2020-10-20] MEDS ORDERED: Cefepime HCl 1,000 MG in Water for inj. (sterile) 10 ML IVP ONE (23:28)
[2020-10-21 00:46] LABS: Bacteria,Urine Few per hpf (None-Few); Bilirubin,Urine Negative (Negative); Blood,Urine Negative (Negative); Clarity,Urine Clear (Clear); Color,Urine Light-Yellow (Yellow); Glucose,Urine (UA) >=1000 mg/dL (Normal); Hyaline Casts,Urine Few per lpf (None Seen); Ketones,Urine Negative (Negative); Leukocyte Esterase,Urine Negative (Negative); Mucus,Urine Few per lpf (None-Few); Nitrite,Urine Negative (Negative); Protein,Urine Trace mg/dL (Neg-Trace); Specific Gravity,Urine > 1.030 (1.010-1.025); Squamous Epithelial Cell,Urine Few per hpf (None-Few); Transitional Epi Cells,Urine Few per hpf (None-Few); Urobilinogen,Urine Normal (Normal)
[2020-10-21] MEDS ORDERED: Ondansetron 4 MG/2 ML VIAL IVP PRN (01:11)
[2020-10-21] MEDS ORDERED: Naloxone 0.4 MG/ML INJ IVP PRN (01:11)
[2020-10-21] MEDS ORDERED: Dextrose Gel 15 GM/37.5 ML TUBE PO PRN ×2 (01:14)
[2020-10-21] MEDS ORDERED: D5% in Water 1,000 ML IVC PRN (01:14)
[2020-10-21] MEDS ORDERED: *HR* Dextrose 50 % in Water (Vial) 50 ML VIAL IVP PRN (01:14)
[2020-10-21] MEDS: Insulin LISPRO 300 UNITS/3 ML VIAL SUBQ SCH ×5 (01:35→20:39)
[2020-10-21 01:59] LABS: Basophils # 0.1 K/mcL (0.0-0.2); Basophils % 0.3 %; Eosinophils # 0.1 K/mcL (0.0-0.6); Eosinophils % 0.5 %; Hematocrit 39.5 % (37.5-50.1); Hemoglobin 12.9 g/dL (12.9-16.9); Immature Granulocytes % 0.8 % (0-4); Lymphocytes # 1.5 K/mcL (0.6-4.6); Lymphocytes % 8.5 %; Mean Corpuscular HGB Conc 32.7 g/dL (31.6-35.5); Mean Corpuscular Hemoglobin 33.9 pg (28.0-33.3); Mean Corpuscular Volume 103.9 fL (83.0-100.0); Mean Platelet Volume 10.1 fL (9.4-12.4); Monocytes # 1.1 K/mcL (0.0-1.3); Monocytes % 6.2 %; Neutrophils # 14.5 K/mcL (1.6-8.9); Platelet Count 189 K/mcL (140-400); Red Cell Distribution Width 12.9 % (11.5-14.5); Segmented Neutrophils % 83.7 %; White Blood Count 17.3 K/mcL (4.3-11.1)
[2020-10-21] MEDS: 0.9 % Sodium Chloride 1,000 ML IVC SCH ×2 (01:59→12:04)
[2020-10-21] MEDS ORDERED: Vancomycin 1,750 MG in 0.9 % Sodium Chloride 250 ML IVPB SCH (02:00)
[2020-10-21 02:06] LABS: INR 1.2; Prothrombin Time 13.7 Seconds (9.4-12.1)
[2020-10-21 02:19] LABS: Alanine Aminotransferase 63 Units/L (7-52); Albumin 3.5 g/dL (3.5-5.7); Albumin/Globulin Ratio 1.1 (1.1-2.2); Alkaline Phosphatase 248 Units/L (34-104); Aspartate Amino Transferase 62 Units/L (13-39); BUN/Creatinine Ratio 16 (6-26); Bilirubin,Total 1.1 mg/dL (0.3-1.0); Blood Urea Nitrogen 16 mg/dL (8-23); Calcium 8.7 mg/dL (8.6-10.3); Carbon Dioxide 26 mEq/L (23-29); Chloride 103 mEq/L (98-107); Globulin 3.3 g/dL (2.4-3.5); Glucose 196 mg/dL (70-105); Magnesium 2.1 mg/dL (1.6-2.6); Osmolality,Calculated 289 (280-300); Potassium 4.5 mEq/L (3.5-5.1); Sodium 136 mEq/L (136-145); Total Protein 6.8 g/dL (6.4-8.9); eGFR For African Americans > 60 (> 60); eGFR For Non-African Americans > 60 (> 60)
[2020-10-21 02:20] LABS: Adenovirus Not Detected (Not Detect); Bordetella Pertussis Not Detected (Not Detect); Chlamydophila pneumoniae Not Detected (Not Detect); Coronavirus 229E Not Detected (Not Detect); Coronavirus HKU1 Not Detected (Not Detect); Coronavirus NL63 Not Detected (Not Detect); Coronavirus OC43 Not Detected (Not Detect); Human Metapneumovirus Not Detected (Not Detect); Human Rhinovirus/Enterovirus Not Detected (Not Detect); Influenza A Subtype 2009 H1 Not Detected (Not Detect); Influenza B Not Detected (Not Detect); Mycoplasma pneumoniae Not Detected (Not Detect); Parainfluenza Virus 1 Not Detected (Not Detect); Parainfluenza Virus 2 Not Detected (Not Detect); Parainfluenza Virus 3 Not Detected (Not Detect); Parainfluenza Virus 4 Not Detected (Not Detect); Respiratory Syncytial Virus Not Detected (Not Detect)
[2020-10-21] MEDS ORDERED: Acetaminophen 325 MG TABLET PO PRN (08:08)
[2020-10-21] MEDS ORDERED: Morphine Sulfate 2 MG/ML SYRINGE IVP PRN (08:08)
[2020-10-21] MEDS: Cefepime HCl 1,000 MG in 0.9 % Sodium Chloride Mini Bag 100 ML IVPB SCH ×3 (08:16→23:22)
[2020-10-21] MEDS: Vancomycin 1,750 MG/517.5 ML IV.SOLN IVPB SCH (12:04)
[2020-10-21] MEDS ORDERED: *HR* HYDROmorphone (PF) 1 MG/ML SYRINGE IVP STA (12:52)
[2020-10-21] MEDS ORDERED: *HR* OxyCODONE/APAP 10/325 TABLET PO PRN (12:53)
[2020-10-21] MEDS: *HR* Digoxin 0.125 MG TABLET PO SCH (13:22)
[2020-10-21] MEDS: DilTIAZem CD (24hr) 180 MG CAP.ER.24H PO SCH (13:22)
[2020-10-21] MEDS: Gabapentin 400 MG CAPSULE PO SCH ×2 (15:32→20:29)
[2020-10-21] MEDS: *HR* HYDROmorphone (PF) 1 MG/ML SYRINGE IVP PRN (18:34)
[2020-10-21] MEDS: Chlorhexidine Rinse 15 ML MOUTHWASH MM SCH (20:29)
[2020-10-21] MEDS: Metoprolol XL (24 HR) Succ 50 MG TAB.ER.24H PO SCH (20:29)
[2020-10-21] MEDS ORDERED: Cefepime HCl 1,000 MG in 0.9 % Sodium Chloride Mini Bag 100 ML IVPB ONE (22:15)
[2020-10-22 04:26] LABS: Basophils # 0.1 K/mcL (0.0-0.2); Basophils % 0.5 %; Eosinophils # 0.2 K/mcL (0.0-0.6); Hematocrit 39.6 % (37.5-50.1); Hemoglobin 13.3 g/dL (12.9-16.9); Immature Granulocytes % 0.8 % (0-4); Lymphocytes # 1.9 K/mcL (0.6-4.6); Lymphocytes % 10.9 %; Mean Corpuscular HGB Conc 33.6 g/dL (31.6-35.5); Mean Corpuscular Hemoglobin 34.8 pg (28.0-33.3); Mean Corpuscular Volume 103.7 fL (83.0-100.0); Monocytes # 1.3 K/mcL (0.0-1.3); Monocytes % 7.6 %; Neutrophils # 13.9 K/mcL (1.6-8.9); Platelet Count 231 K/mcL (140-400); Red Blood Count 3.82 M/mcL (4.19-5.50); Segmented Neutrophils % 79.2 %; White Blood Count 17.6 K/mcL (4.3-11.1)
[2020-10-22 04:45] LABS: BUN/Creatinine Ratio 19 (6-26); Blood Urea Nitrogen 16 mg/dL (8-23); Calcium 9.2 mg/dL (8.6-10.3); Carbon Dioxide 23 mEq/L (23-29); Chloride 100 mEq/L (98-107); Glucose 191 mg/dL (70-105); Osmolality,Calculated 284 (280-300); Potassium 4.1 mEq/L (3.5-5.1); Sodium 134 mEq/L (136-145); eGFR For African Americans > 60 (> 60); eGFR For Non-African Americans > 60 (> 60)
[2020-10-22] MEDS: *HR* HYDROmorphone (PF) 1 MG/ML SYRINGE IVP PRN ×2 (08:25→13:55)
[2020-10-22] MEDS: Insulin LISPRO 300 UNITS/3 ML VIAL SUBQ SCH ×4 (12:05→21:31)
[2020-10-22] MEDS: Aspirin Enteric Coated 325 MG Tablet PO SCH (12:07)
[2020-10-22] MEDS: DilTIAZem CD (24hr) 180 MG CAP.ER.24H PO SCH (12:07)
[2020-10-22] MEDS: Multivit/Ca/Min/Fe/FA 1 TAB TABLET PO SCH (12:08)
[2020-10-22] MEDS: Gabapentin 400 MG CAPSULE PO SCH ×3 (12:08→21:27)
[2020-10-22] MEDS: *HR* Digoxin 0.125 MG TABLET PO SCH (12:08)
[2020-10-22] MEDS: Chlorhexidine Rinse 15 ML MOUTHWASH MM SCH ×2 (12:08→21:26)
[2020-10-22] MEDS: Metoprolol XL (24 HR) Succ 50 MG TAB.ER.24H PO SCH ×2 (12:08→21:27)
[2020-10-22] MEDS: Cefepime HCl 1,000 MG in 0.9 % Sodium Chloride Mini Bag 100 ML IVPB SCH ×2 (13:18→16:44)
[2020-10-22] MEDS: Vancomycin 2,000 MG/520 ML IV.SOLN IVPB SCH (13:20)
[2020-10-22] MEDS: Vancomycin 1,750 MG/517.5 ML IV.SOLN IVPB SCH (13:50)
[2020-10-22] MEDS ORDERED: Ipratropium/Albuterol Neb 3 ML IH PRN (14:27)
[2020-10-22] MEDS: Furosemide 20 MG TABLET PO SCH (16:45)
[2020-10-22] MEDS: Insulin DETEMIR 100 UNIT/ML X5UNITS SUBQ SCH (21:23)
[2020-10-23] MEDS: Cefepime HCl 1,000 MG in 0.9 % Sodium Chloride Mini Bag 100 ML IVPB SCH ×2 (01:43→08:49)
[2020-10-23 06:35] LABS: Basophils # 0.1 K/mcL (0.0-0.2); Basophils % 0.5 %; Eosinophils # 0.3 K/mcL (0.0-0.6); Eosinophils % 2.3 %; Hematocrit 41.6 % (37.5-50.1); Hemoglobin 14.1 g/dL (12.9-16.9); Immature Granulocytes % 0.6 % (0-4); Lymphocytes # 1.3 K/mcL (0.6-4.6); Mean Corpuscular HGB Conc 33.9 g/dL (31.6-35.5); Mean Corpuscular Hemoglobin 34.7 pg (28.0-33.3); Mean Corpuscular Volume 102.5 fL (83.0-100.0); Mean Platelet Volume 9.9 fL (9.4-12.4); Monocytes % 8.8 %; Neutrophils # 8.4 K/mcL (1.6-8.9); Platelet Count 251 K/mcL (140-400); Red Blood Count 4.06 M/mcL (4.19-5.50); Red Cell Distribution Width 12.7 % (11.5-14.5); Segmented Neutrophils % 75.8 %; White Blood Count 11.1 K/mcL (4.3-11.1)
[2020-10-23 07:00] LABS: % Iron Saturation 29 % (20-55); BUN/Creatinine Ratio 22 (6-26); Blood Urea Nitrogen 20 mg/dL (8-23); Calcium 9.3 mg/dL (8.6-10.3); Carbon Dioxide 25 mEq/L (23-29); Chloride 99 mEq/L (98-107); Glucose 198 mg/dL (70-105); Iron 81 mcg/dL (65-175); Osmolality,Calculated 288 (280-300); Potassium 3.9 mEq/L (3.5-5.1); Sodium 135 mEq/L (136-145); Transferrin 199 mg/dL (203-362); eGFR For African Americans > 60 (> 60); eGFR For Non-African Americans > 60 (> 60)
[2020-10-23 07:13] LABS: Ferritin 311 ng/mL (20-250)
[2020-10-23 07:18] LABS: Folate 21.4 ng/mL (3.0-16.0)
[2020-10-23] MEDS: Chlorhexidine Rinse 15 ML MOUTHWASH MM SCH ×2 (08:47→20:21)
[2020-10-23] MEDS: Gabapentin 400 MG CAPSULE PO SCH ×3 (08:47→20:20)
[2020-10-23] MEDS: Multivit/Ca/Min/Fe/FA 1 TAB TABLET PO SCH (08:48)
[2020-10-23] MEDS: Metoprolol XL (24 HR) Succ 50 MG TAB.ER.24H PO SCH ×2 (08:48→20:20)
[2020-10-23] MEDS: DilTIAZem CD (24hr) 180 MG CAP.ER.24H PO SCH (08:48)
[2020-10-23] MEDS: Furosemide 20 MG TABLET PO SCH (08:48)
[2020-10-23] MEDS: *HR* Digoxin 0.125 MG TABLET PO SCH (08:48)
[2020-10-23] MEDS: Aspirin Enteric Coated 325 MG Tablet PO SCH (08:48)
[2020-10-23] MEDS: Finasteride 5 MG TABLET PO SCH (08:48)
[2020-10-23] MEDS: Insulin LISPRO 300 UNITS/3 ML VIAL SUBQ SCH ×4 (08:52→20:19)
[2020-10-23] MEDS: Vancomycin 2,000 MG/520 ML IV.SOLN IVPB SCH (14:21)
[2020-10-23] MEDS ORDERED: Melatonin 3 MG TABLET PO PRN (15:34)
[2020-10-23] MEDS ORDERED: Sennosides/Docusate Sodium TABLET PO PRN (15:34)
[2020-10-23] MEDS: Acetaminophen IV 1,000 MG/100 ML BAG IVPB SCH ×2 (16:16→23:04)
[2020-10-23] MEDS: Insulin DETEMIR 100 UNIT/ML X5UNITS SUBQ SCH (20:21)
[2020-10-24 02:14] LABS: Basophils # 0.1 K/mcL (0.0-0.2); Basophils % 1.1 %; Eosinophils # 0.5 K/mcL (0.0-0.6); Eosinophils % 6.2 %; Hematocrit 39.7 % (37.5-50.1); Hemoglobin 13.2 g/dL (12.9-16.9); Immature Granulocytes % 1.8 % (0-4); Lymphocytes # 1.6 K/mcL (0.6-4.6); Lymphocytes % 18.1 %; Mean Corpuscular HGB Conc 33.2 g/dL (31.6-35.5); Mean Corpuscular Hemoglobin 34.5 pg (28.0-33.3); Mean Corpuscular Volume 103.7 fL (83.0-100.0); Mean Platelet Volume 9.8 fL (9.4-12.4); Monocytes # 0.9 K/mcL (0.0-1.3); Monocytes % 10.2 %; Neutrophils # 5.4 K/mcL (1.6-8.9); Platelet Count 254 K/mcL (140-400); Red Blood Count 3.83 M/mcL (4.19-5.50); Red Cell Distribution Width 12.7 % (11.5-14.5); Segmented Neutrophils % 62.6 %; White Blood Count 8.6 K/mcL (4.3-11.1)
[2020-10-24 02:33] LABS: BUN/Creatinine Ratio 25 (6-26); Blood Urea Nitrogen 27 mg/dL (8-23); Calcium 8.9 mg/dL (8.6-10.3); Carbon Dioxide 26 mEq/L (23-29); Chloride 100 mEq/L (98-107); Glucose 274 mg/dL (70-105); Magnesium 2.1 mg/dL (1.6-2.6); Osmolality,Calculated 295 (280-300); Phosphorous 4.2 mg/dL (2.7-4.5); Potassium 3.8 mEq/L (3.5-5.1); Sodium 135 mEq/L (136-145); eGFR For African Americans > 60 (> 60); eGFR For Non-African Americans > 60 (> 60)
[2020-10-24] MEDS: Insulin LISPRO 300 UNITS/3 ML VIAL SUBQ SCH ×4 (08:41→20:52)
[2020-10-24] MEDS: Aspirin Enteric Coated 325 MG Tablet PO SCH (08:42)
[2020-10-24] MEDS: Gabapentin 400 MG CAPSULE PO SCH ×3 (08:42→20:48)
[2020-10-24] MEDS: Furosemide 20 MG TABLET PO SCH (08:42)
[2020-10-24] MEDS: Finasteride 5 MG TABLET PO SCH (08:42)
[2020-10-24] MEDS: Acetaminophen IV 1,000 MG/100 ML BAG IVPB SCH (08:42)
[2020-10-24] MEDS: *HR* Digoxin 0.125 MG TABLET PO SCH (08:42)
[2020-10-24] MEDS: DilTIAZem CD (24hr) 180 MG CAP.ER.24H PO SCH (08:42)
[2020-10-24] MEDS: Chlorhexidine Rinse 15 ML MOUTHWASH MM SCH ×2 (08:42→20:52)
[2020-10-24] MEDS: lisinopriL 5 MG TABLET PO SCH (08:43)
[2020-10-24] MEDS: Multivit/Ca/Min/Fe/FA 1 TAB TABLET PO SCH (08:43)
[2020-10-24] MEDS: Metoprolol XL (24 HR) Succ 50 MG TAB.ER.24H PO SCH ×2 (08:43→20:49)
[2020-10-24] MEDS ORDERED: levoFLOXacin 750 MG TABLET PO SCH (09:00)
[2020-10-24 09:29] LABS: Estimated Average Glucose 235 mg/dl; Hemoglobin A1C 9.8 %
[2020-10-24] MEDS: Lactobacillus 1 EACH CAP.SPRINK PO SCH (18:29)
[2020-10-24] MEDS: Doxycycline 100 MG CAPSULE PO SCH (20:48)
[2020-10-24] MEDS: Insulin DETEMIR 100 UNIT/ML X5UNITS SUBQ SCH (20:50)
[2020-10-25 06:33] LABS: Basophils # 0.1 K/mcL (0.0-0.2); Basophils % 1.5 %; Eosinophils # 0.5 K/mcL (0.0-0.6); Eosinophils % 5.2 %; Hematocrit 40.1 % (37.5-50.1); Hemoglobin 13.5 g/dL (12.9-16.9); Immature Granulocytes % 3.5 % (0-4); Lymphocytes # 1.5 K/mcL (0.6-4.6); Lymphocytes % 15.7 %; Mean Corpuscular HGB Conc 33.7 g/dL (31.6-35.5); Mean Corpuscular Hemoglobin 34.2 pg (28.0-33.3); Mean Corpuscular Volume 101.5 fL (83.0-100.0); Mean Platelet Volume 9.9 fL (9.4-12.4); Monocytes # 0.8 K/mcL (0.0-1.3); Neutrophils # 6.2 K/mcL (1.6-8.9); Platelet Count 291 K/mcL (140-400); Red Blood Count 3.95 M/mcL (4.19-5.50); Red Cell Distribution Width 12.8 % (11.5-14.5); Segmented Neutrophils % 66.1 %; White Blood Count 9.4 K/mcL (4.3-11.1)
[2020-10-25 06:53] LABS: BUN/Creatinine Ratio 24 (6-26); Blood Urea Nitrogen 24 mg/dL (8-23); Calcium 9.1 mg/dL (8.6-10.3); Carbon Dioxide 27 mEq/L (23-29); Chloride 99 mEq/L (98-107); Glucose 262 mg/dL (70-105); Magnesium 1.9 mg/dL (1.6-2.6); Osmolality,Calculated 289 (280-300); Phosphorous 4.1 mg/dL (2.7-4.5); Potassium 4.1 mEq/L (3.5-5.1); Sodium 133 mEq/L (136-145); eGFR For African Americans > 60 (> 60); eGFR For Non-African Americans > 60 (> 60)
[2020-10-25 08:44] VITALS: BP 138/82
[2020-10-25] MEDS: Chlorhexidine Rinse 15 ML MOUTHWASH MM SCH (09:26)
[2020-10-25] MEDS: lisinopriL 5 MG TABLET PO SCH (09:26)
[2020-10-25] MEDS: DilTIAZem CD (24hr) 180 MG CAP.ER.24H PO SCH (09:27)
[2020-10-25] MEDS: Lactobacillus 1 EACH CAP.SPRINK PO SCH (09:27)
[2020-10-25] MEDS: Doxycycline 100 MG CAPSULE PO SCH (09:27)
[2020-10-25] MEDS: Aspirin Enteric Coated 325 MG Tablet PO SCH (09:27)
[2020-10-25] MEDS: Gabapentin 400 MG CAPSULE PO SCH (09:27)
[2020-10-25] MEDS: Finasteride 5 MG TABLET PO SCH (09:27)
[2020-10-25] MEDS: Furosemide 20 MG TABLET PO SCH (09:28)
[2020-10-25] MEDS: *HR* Digoxin 0.125 MG TABLET PO SCH (09:28)
[2020-10-25] MEDS: Multivit/Ca/Min/Fe/FA 1 TAB TABLET PO SCH (09:28)
[2020-10-25] MEDS: Metoprolol XL (24 HR) Succ 50 MG TAB.ER.24H PO SCH (09:28)
[2020-10-25] MEDS: Insulin LISPRO 300 UNITS/3 ML VIAL SUBQ SCH (09:30)
== END 2020-10-25 12:01 | disposition home health service (06) | DRG 853 ==
LOC: EMEROOARM 20:43 → 3ANU 20:43 → SUATTDRO 10-21 00:34 → 3ANU 10-21 01:12
PROVIDERS: ADMIT Internal Medicine; ATTEND Internal Medicine

== ENCOUNTER 2020-12-05 19:01 | Inpatient (IN) ==
[2020-12-05] MEDS ORDERED: Ondansetron 4 MG/2 ML VIAL IVP PRN (21:46)
[2020-12-05] MEDS ORDERED: Acetaminophen 325 MG TABLET PO PRN (21:46)
[2020-12-05] MEDS ORDERED: Naloxone 0.4 MG/ML INJ IVP PRN (21:46)
[2020-12-05] MEDS ORDERED: *HR* Promethazine 25 MG/ML VIAL IM PRN (21:46)
[2020-12-05] MEDS ORDERED: *HR* Dextrose 50 % in Water (Vial) 50 ML VIAL IVP PRN (21:54)
[2020-12-05] MEDS ORDERED: Dextrose Gel 15 GM/37.5 ML TUBE PO PRN ×2 (21:54)
[2020-12-05] MEDS ORDERED: D5% in Water 1,000 ML IVC PRN (21:54)
[2020-12-05] MEDS ORDERED: Ringers Solution, Lactated 1,000 ML IVC SCH (22:00)
[2020-12-05] MEDS: *HR* OxyCODONE Immed Rel 5 MG TABLET PO PRN (22:17)
[2020-12-05] MEDS: Melatonin 3 MG TABLET PO PRN (22:18)
[2020-12-05] MEDS ORDERED: Furosemide 40 MG/4 ML VIAL IVP ONE (23:34)
[2020-12-05] MEDS: Piperacillin/Tazobactam 3.375 GM in 0.9 % Sodium Chloride Mini Bag 100 ML IVPB SCH (23:50)
[2020-12-06] MEDS ORDERED: Azithromycin 500 MG in 0.9 % Sodium Chloride 250 ML IVPB ONE (00:19)
[2020-12-06] MEDS ORDERED: Vancomycin 1,500 MG/265 ML IV.SOLN IVPB SCH (04:00)
[2020-12-06] MEDS ORDERED: Furosemide 40 MG/4 ML VIAL IVP ONE (05:39)
[2020-12-06] MEDS: *HR* OxyCODONE Immed Rel 5 MG TABLET PO PRN ×2 (06:30→19:52)
[2020-12-06 06:35] LABS: Basophils % 0.2 %; Eosinophils % 6.6 %; Hematocrit 35.1 % (37.5-50.1); Hemoglobin 11.9 g/dL (12.9-16.9); Immature Granulocytes % 0.7 % (0-4); Lymphocytes # 1.4 K/mcL (0.6-4.6); Lymphocytes % 9.4 %; Mean Corpuscular HGB Conc 33.9 g/dL (31.6-35.5); Mean Corpuscular Hemoglobin 35.6 pg (28.0-33.3); Mean Corpuscular Volume 105.1 fL (83.0-100.0); Mean Platelet Volume 10.2 fL (9.4-12.4); Monocytes # 1.1 K/mcL (0.0-1.3); Monocytes % 7.2 %; Neutrophils # 11.7 K/mcL (1.6-8.9); Platelet Count 238 K/mcL (140-400); Red Blood Count 3.34 M/mcL (4.19-5.50); Red Cell Distribution Width 13.2 % (11.5-14.5); Segmented Neutrophils % 75.9 %; White Blood Count 15.4 K/mcL (4.3-11.1)
[2020-12-06 06:40] LABS: INR 1.2; Prothrombin Time 13.9 Seconds (9.4-12.1)
[2020-12-06 08:26] LABS: Calcium 9.1 mg/dL (8.6-10.3); Magnesium 1.8 mg/dL (1.6-2.6); Potassium 4.4 mEq/L (3.5-5.1)
[2020-12-06] MEDS: Insulin LISPRO 300 UNITS/3 ML VIAL SUBQ SCH ×3 (08:34→17:00)
[2020-12-06] MEDS: Piperacillin/Tazobactam 3.375 GM in 0.9 % Sodium Chloride Mini Bag 100 ML IVPB SCH ×2 (08:35→16:59)
[2020-12-06] MEDS: Aspirin Enteric Coated 325 MG Tablet PO SCH (08:35)
[2020-12-06 09:00] LABS: Hematocrit 38.5 % (37.5-50.1); Hemoglobin 12.9 g/dL (12.9-16.9)
[2020-12-06] MEDS: *HR* Heparin 5,000 UNIT/ML VIAL SQ SCH ×2 (16:59→20:54)
[2020-12-06] MEDS ORDERED: *HR* OxyCODONE/APAP 10/325 TABLET PO PRN (17:38)
[2020-12-06] MEDS ORDERED: Sennosides/Docusate Sodium TABLET PO PRN (17:38)
[2020-12-06] MEDS: Gabapentin 400 MG CAPSULE PO SCH (19:52)
[2020-12-06] MEDS: Melatonin 3 MG TABLET PO PRN (19:52)
[2020-12-06] MEDS: Metoprolol XL (24 HR) Succ 50 MG TAB.ER.24H PO SCH (19:53)
[2020-12-06] MEDS: Insulin DETEMIR 100 UNIT/ML X5UNITS SUBQ SCH (20:54)
[2020-12-06] MEDS ORDERED: Insulin LISPRO 300 UNITS/3 ML VIAL SUBQ SCH (21:00)
[2020-12-07] MEDS: *HR* HYDROcodone/Acet 5/325 mg TABLET PO PRN ×2 (00:12→08:11)
[2020-12-07] MEDS: Azithromycin 500 MG in 0.9 % Sodium Chloride 250 ML IVPB SCH (00:13)
[2020-12-07] MEDS: Piperacillin/Tazobactam 3.375 GM in 0.9 % Sodium Chloride Mini Bag 100 ML IVPB SCH ×2 (00:13→08:12)
[2020-12-07] MEDS: *HR* OxyCODONE Immed Rel 5 MG TABLET PO PRN ×3 (02:14→20:37)
[2020-12-07 03:27] LABS: Basophils % 0.3 %; Eosinophils # 0.8 K/mcL (0.0-0.6); Eosinophils % 7.9 %; Hematocrit 35.1 % (37.5-50.1); Hemoglobin 11.8 g/dL (12.9-16.9); Immature Granulocytes % 0.7 % (0-4); Lymphocytes # 1.6 K/mcL (0.6-4.6); Lymphocytes % 14.9 %; Mean Corpuscular HGB Conc 33.6 g/dL (31.6-35.5); Mean Corpuscular Hemoglobin 34.7 pg (28.0-33.3); Mean Corpuscular Volume 103.2 fL (83.0-100.0); Mean Platelet Volume 10.2 fL (9.4-12.4); Monocytes # 0.8 K/mcL (0.0-1.3); Neutrophils # 7.2 K/mcL (1.6-8.9); Platelet Count 219 K/mcL (140-400); Red Cell Distribution Width 12.9 % (11.5-14.5); Segmented Neutrophils % 68.2 %; White Blood Count 10.6 K/mcL (4.3-11.1)
[2020-12-07 03:46] LABS: BUN/Creatinine Ratio 17 (6-26); Blood Urea Nitrogen 19 mg/dL (8-23); Carbon Dioxide 28 mEq/L (23-29); Chloride 97 mEq/L (98-107); Glucose 239 mg/dL (70-105); Osmolality,Calculated 288 (280-300); Potassium 4.1 mEq/L (3.5-5.1); Sodium 134 mEq/L (136-145); Vancomycin,Trough 8 mcg/mL (5-10); eGFR For African Americans > 60 (> 60); eGFR For Non-African Americans > 60 (> 60)
[2020-12-07] MEDS ORDERED: Vancomycin 2,000 MG/520 ML IV.SOLN IVPB SCH (04:00)
[2020-12-07] MEDS: *HR* Heparin 5,000 UNIT/ML VIAL SQ SCH ×3 (05:29→20:42)
[2020-12-07] MEDS: *HR* Digoxin 0.125 MG TABLET PO SCH (08:09)
[2020-12-07] MEDS: Aspirin Enteric Coated 325 MG Tablet PO SCH (08:09)
[2020-12-07] MEDS: Metoprolol XL (24 HR) Succ 50 MG TAB.ER.24H PO SCH ×2 (08:10→20:37)
[2020-12-07] MEDS: DilTIAZem CD (24hr) 180 MG CAP.ER.24H PO SCH (08:10)
[2020-12-07] MEDS: Gabapentin 400 MG CAPSULE PO SCH ×3 (08:10→20:37)
[2020-12-07] MEDS: Finasteride 5 MG TABLET PO SCH (08:11)
[2020-12-07] MEDS: Insulin LISPRO 300 UNITS/3 ML VIAL SUBQ SCH ×3 (08:12→16:49)
[2020-12-07] MEDS ORDERED: Dextrose Gel 15 GM/37.5 ML TUBE PO PRN ×2 (09:42)
[2020-12-07] MEDS ORDERED: D5% in Water 1,000 ML IVC PRN (09:42)
[2020-12-07] MEDS ORDERED: *HR* Dextrose 50 % in Water (Vial) 50 ML VIAL IVP PRN (09:42)
[2020-12-07] MEDS ORDERED: Torsemide 20 MG TABLET PO PRN (13:50)
[2020-12-07] MEDS: Insulin DETEMIR 100 UNIT/ML X5UNITS SUBQ SCH (20:37)
[2020-12-07] MEDS ORDERED: Insulin LISPRO 300 UNITS/3 ML VIAL SUBQ SCH (21:00)
[2020-12-07] MEDS ORDERED: Doxycycline 100 MG CAPSULE PO SCH (21:00)
[2020-12-08] MEDS: *HR* HYDROcodone/Acet 5/325 mg TABLET PO PRN (00:54)
[2020-12-08] MEDS: Azithromycin 500 MG in 0.9 % Sodium Chloride 250 ML IVPB SCH (00:55)
[2020-12-08] MEDS: *HR* OxyCODONE Immed Rel 5 MG TABLET PO PRN (06:23)
[2020-12-08] MEDS: *HR* Heparin 5,000 UNIT/ML VIAL SQ SCH (06:23)
[2020-12-08 07:04] VITALS: BP 131/82
[2020-12-08] MEDS: Insulin LISPRO 300 UNITS/3 ML VIAL SUBQ SCH (08:03)
[2020-12-08] MEDS: Metoprolol XL (24 HR) Succ 50 MG TAB.ER.24H PO SCH (08:04)
[2020-12-08] MEDS: *HR* Digoxin 0.125 MG TABLET PO SCH (08:04)
[2020-12-08] MEDS: Finasteride 5 MG TABLET PO SCH (08:04)
[2020-12-08] MEDS: DilTIAZem CD (24hr) 180 MG CAP.ER.24H PO SCH (08:04)
[2020-12-08] MEDS: Gabapentin 400 MG CAPSULE PO SCH (08:04)
[2020-12-08] MEDS: Aspirin Enteric Coated 325 MG Tablet PO SCH (08:04)
[2020-12-08] MEDS ORDERED: cefTRIAXone 1,000 MG in 0.9 % Sodium Chloride Mini Bag 100 ML IVPB SCH (09:00)
[2020-12-08] MEDS ORDERED: Torsemide 20 MG TABLET PO SCH (09:00)
== END 2020-12-08 12:36 | disposition home health service (06) | DRG 871 ==
LOC: 3ANU → SUATTDRO 20:38
PROVIDERS: ADMIT Internal Medicine; ATTEND Internal Medicine

== ENCOUNTER 2021-03-23 14:52 | Observation (INO) ==
[2021-03-23] MEDS ORDERED: Td (TENIVAC) Vaccine 0.5 ML VIAL IM ONE (15:11)
[2021-03-23] MEDS ORDERED: Tdap (Boostrix) Vaccine 0.5 ML SYRINGE IM ONE (15:15)
[2021-03-23 15:47] LABS: Basophils % 0.3 %; Eosinophils # 0.9 K/mcL (0.0-0.6); Eosinophils % 8.9 %; Hematocrit 35.9 % (37.5-50.1); Hemoglobin 11.9 g/dL (12.9-16.9); Immature Granulocytes % 0.5 % (0-4); Lymphocytes # 1.7 K/mcL (0.6-4.6); Lymphocytes % 16.6 %; Mean Corpuscular HGB Conc 33.1 g/dL (31.6-35.5); Mean Corpuscular Hemoglobin 33.2 pg (28.0-33.3); Mean Corpuscular Volume 100.3 fL (83.0-100.0); Mean Platelet Volume 9.9 fL (9.4-12.4); Monocytes # 0.8 K/mcL (0.0-1.3); Monocytes % 7.9 %; Neutrophils # 6.5 K/mcL (1.6-8.9); Platelet Count 277 K/mcL (140-400); Red Blood Count 3.58 M/mcL (4.19-5.50); Segmented Neutrophils % 65.8 %; White Blood Count 9.9 K/mcL (4.3-11.1)
[2021-03-23 16:05] LABS: Alanine Aminotransferase 50 Units/L (7-52); Albumin 3.7 g/dL (3.5-5.7); Albumin/Globulin Ratio 1.1 (1.1-2.2); Alkaline Phosphatase 215 Units/L (34-104); Aspartate Amino Transferase 60 Units/L (13-39); BUN/Creatinine Ratio 14 (6-26); Bilirubin,Total 0.4 mg/dL (0.3-1.0); Blood Urea Nitrogen 16 mg/dL (8-23); Calcium 9.3 mg/dL (8.6-10.3); Carbon Dioxide 29 mEq/L (23-29); Chloride 99 mEq/L (98-107); Globulin 3.5 g/dL (2.4-3.5); Glucose 190 mg/dL (70-105); Osmolality,Calculated 282 (280-300); Potassium 4.8 mEq/L (3.5-5.1); Sodium 133 mEq/L (136-145); Total Protein 7.2 g/dL (6.4-8.9); Troponin I < 0.03 ng/mL (< 0.04); eGFR For African Americans > 60 (> 60); eGFR For Non-African Americans > 60 (> 60)
[2021-03-23 16:07] LABS: INR 1.1; Prothrombin Time 13.2 Seconds (9.4-12.1)
[2021-03-23 16:10] LABS: Activated Partial Thrombo Time 32.4 Seconds (26.0-36.0)
[2021-03-23 17:01] LABS: Bilirubin,Urine Negative (Negative); Blood,Urine Negative (Negative); Clarity,Urine Clear (Clear); Color,Urine Yellow (Yellow); Glucose,Urine (UA) >=1000 mg/dL (Normal); Hyaline Casts,Urine Few per lpf (None Seen); Ketones,Urine Negative (Negative); Leukocyte Esterase,Urine Negative (Negative); Mucus,Urine Few per lpf (None-Few); Nitrite,Urine Negative (Negative); Protein,Urine 50 mg/dL (Neg-Trace); RBC,Urine 0-3 per hpf (0-3); Specific Gravity,Urine > 1.030 (1.010-1.025); Squamous Epithelial Cell,Urine Few per hpf (None-Few); WBC,Urine 0-3 per hpf (0-3)
[2021-03-23] MEDS ORDERED: Isovue-370 500 ML BOTTLE IVP ONE (17:32)
[2021-03-23] MEDS ORDERED: Naloxone 0.4 MG/ML INJ IVP PRN (19:43)
[2021-03-23] MEDS ORDERED: *HR* Dextrose 50 % in Water (Vial) 50 ML VIAL IVP PRN (19:46)
[2021-03-23] MEDS ORDERED: D5% in Water 1,000 ML IVC PRN (19:46)
[2021-03-23] MEDS ORDERED: Dextrose Gel 15 GM/37.5 ML TUBE PO PRN ×2 (19:46)
[2021-03-23] MEDS ORDERED: Insulin LISPRO 300 UNITS/3 ML VIAL SUBQ SCH (21:00)
[2021-03-23] MEDS: *HR* Heparin 5,000 UNIT/ML VIAL SQ SCH (22:22)
[2021-03-23] MEDS ORDERED: Acetaminophen 325 MG TABLET PO PRN (22:26)
[2021-03-24] MEDS ORDERED: Ibuprofen 600 MG TABLET PO ONE (00:51)
[2021-03-24 01:04] LABS: Basophils % 0.3 %; Eosinophils # 0.9 K/mcL (0.0-0.6); Hematocrit 33.2 % (37.5-50.1); Hemoglobin 10.7 g/dL (12.9-16.9); Immature Granulocytes % 0.5 % (0-4); Lymphocytes # 1.3 K/mcL (0.6-4.6); Lymphocytes % 12.5 %; Mean Corpuscular HGB Conc 32.2 g/dL (31.6-35.5); Mean Corpuscular Hemoglobin 32.4 pg (28.0-33.3); Mean Corpuscular Volume 100.6 fL (83.0-100.0); Monocytes # 0.7 K/mcL (0.0-1.3); Monocytes % 6.9 %; Neutrophils # 7.7 K/mcL (1.6-8.9); Platelet Count 228 K/mcL (140-400); Segmented Neutrophils % 71.8 %; White Blood Count 10.7 K/mcL (4.3-11.1)
[2021-03-24 01:24] LABS: BUN/Creatinine Ratio 12 (6-26); Blood Urea Nitrogen 13 mg/dL (8-23); Calcium 8.6 mg/dL (8.6-10.3); Carbon Dioxide 25 mEq/L (23-29); Chloride 102 mEq/L (98-107); Glucose 236 mg/dL (70-105); Osmolality,Calculated 286 (280-300); Sodium 134 mEq/L (136-145); eGFR For African Americans > 60 (> 60); eGFR For Non-African Americans > 60 (> 60)
[2021-03-24] MEDS ORDERED: Gabapentin 400 MG CAPSULE PO ONE (03:30)
[2021-03-24] MEDS: *HR* Heparin 5,000 UNIT/ML VIAL SQ SCH (05:50)
[2021-03-24] MEDS ORDERED: Insulin LISPRO 300 UNITS/3 ML VIAL SUBQ SCH (07:30)
[2021-03-24] MEDS ORDERED: Metoprolol XL (24 HR) Succ 50 MG TAB.ER.24H PO SCH (10:00)
[2021-03-24 11:08] VITALS: BP 134/80; PULSE 80; TEMP 97.6; O2SAT 97
== END 2021-03-24 11:52 | disposition home health service (06) ==
LOC: 2ANU 14:52 → EMEROOARM 14:52 → 2ANU 21:42
PROVIDERS: ADMIT Internal Medicine; ATTEND Internal Medicine

== ENCOUNTER 2021-06-15 15:34 | Inpatient (IN) ==
[2021-06-15] MEDS ORDERED: Ondansetron 4 MG/2 ML VIAL IVP PRN (20:20)
[2021-06-15] MEDS ORDERED: Naloxone 0.4 MG/ML INJ IVP PRN (20:20)
[2021-06-15] MEDS ORDERED: 0.9 % Sodium Chloride 1,000 ML IVC SCH (20:30)
[2021-06-16 06:48] LABS: Hemoglobin 12.7 g/dL (12.9-16.9)
[2021-06-16 06:49] LABS: Hematocrit 38.6 % (37.5-50.1); Mean Corpuscular HGB Conc 32.9 g/dL (31.6-35.5); Mean Corpuscular Hemoglobin 33.8 pg (28.0-33.3); Mean Corpuscular Volume 102.7 fL (83.0-100.0); Mean Platelet Volume 10.2 fL (9.4-12.4); Platelet Count 216 K/mcL (140-400); Red Blood Count 3.76 M/mcL (4.19-5.50); Red Cell Distribution Width 13.7 % (11.5-14.5); White Blood Count 28.4 K/mcL (4.3-11.1)
[2021-06-16 07:03] LABS: BUN/Creatinine Ratio 20 (6-26); Blood Urea Nitrogen 17 mg/dL (8-23); Calcium 8.4 mg/dL (8.6-10.3); Carbon Dioxide 27 mEq/L (23-29); Chloride 102 mEq/L (98-107); Glucose 101 mg/dL (70-105); Osmolality,Calculated 284 (280-300); Potassium 3.9 mEq/L (3.5-5.1); Sodium 136 mEq/L (136-145); eGFR For African Americans > 60 (> 60); eGFR For Non-African Americans > 60 (> 60)
[2021-06-16] MEDS ORDERED: Piperacillin/Tazobactam 3.375 GM in 0.9 % Sodium Chloride Mini Bag 100 ML IVPB STA (08:21)
[2021-06-16] MEDS: *HR* OxyCODONE/APAP 10/325 TABLET PO PRN ×2 (11:09→20:03)
[2021-06-16] MEDS ORDERED: D5% in Water 1,000 ML IVC PRN (11:09)
[2021-06-16] MEDS ORDERED: Dextrose Gel 15 GM/37.5 ML TUBE PO PRN ×2 (11:09)
[2021-06-16] MEDS ORDERED: *HR* Dextrose 50 % in Water (Syg) 50 ML SYRINGE IVP PRN (11:09)
[2021-06-16] MEDS: Gabapentin 400 MG CAPSULE PO SCH ×3 (11:10→20:02)
[2021-06-16] MEDS: Metoprolol XL (24 HR) Succ 50 MG TAB.ER.24H PO SCH ×2 (11:10→20:03)
[2021-06-16] MEDS: Aspirin Enteric Coated 325 MG Tablet PO SCH (11:11)
[2021-06-16] MEDS: *HR* Digoxin 0.125 MG TABLET PO SCH (11:11)
[2021-06-16 11:57] LABS: Lactate Dehydrogenase 209 Units/L (140-271)
[2021-06-16] MEDS: Insulin DETEMIR 100 UNIT/ML X5UNITS SUBQ SCH (12:05)
[2021-06-16 13:21] LABS: Adenovirus Not Detected (Not Detect); Bordetella Pertussis Not Detected (Not Detect); Chlamydophila pneumoniae Not Detected (Not Detect); Coronavirus 229E Not Detected (Not Detect); Coronavirus HKU1 Not Detected (Not Detect); Coronavirus NL63 Not Detected (Not Detect); Coronavirus OC43 Not Detected (Not Detect); Human Metapneumovirus Not Detected (Not Detect); Human Rhinovirus/Enterovirus Not Detected (Not Detect); Influenza A Subtype 2009 H1 Not Detected (Not Detect); Influenza B Not Detected (Not Detect); Mycoplasma pneumoniae Not Detected (Not Detect); Parainfluenza Virus 1 Not Detected (Not Detect); Parainfluenza Virus 2 Not Detected (Not Detect); Parainfluenza Virus 3 Not Detected (Not Detect); Parainfluenza Virus 4 Not Detected (Not Detect); Respiratory Syncytial Virus Not Detected (Not Detect); SARS-CoV-2 Not Detected (Not Detect)
[2021-06-16] MEDS: Azithromycin 250 MG TABLET PO SCH (14:43)
[2021-06-16] MEDS ORDERED: Piperacillin/Tazobactam 3.375 GM in 0.9 % Sodium Chloride Mini Bag 100 ML IVPB SCH (16:00)
[2021-06-16 16:46] LABS: Total Protein,Pleural Fluid 3.1 g/dL
[2021-06-16 17:45] LABS: RBC,Pleural Fluid 2000 RBC/mcL
[2021-06-16] MEDS: Piperacillin/Tazobactam 3.375 GM in 0.9 % Sodium Chloride Mini Bag 100 ML IVPB SCH (18:20)
[2021-06-16 18:51] LABS: Appearance of Pleural Fl Hazy (Clear); Basophils,Pleural Fluid 0 %
[2021-06-17 02:54] LABS: Hematocrit 39.4 % (37.5-50.1); Hemoglobin 12.7 g/dL (12.9-16.9); Mean Corpuscular HGB Conc 32.2 g/dL (31.6-35.5); Mean Corpuscular Hemoglobin 33.3 pg (28.0-33.3); Mean Corpuscular Volume 103.4 fL (83.0-100.0); Mean Platelet Volume 10.5 fL (9.4-12.4); Platelet Count 199 K/mcL (140-400); Red Blood Count 3.81 M/mcL (4.19-5.50); Red Cell Distribution Width 13.6 % (11.5-14.5); White Blood Count 18.1 K/mcL (4.3-11.1)
[2021-06-17 03:01] LABS: INR 1.2; Prothrombin Time 13.9 Seconds (9.4-12.1)
[2021-06-17 03:14] LABS: Alanine Aminotransferase 15 Units/L (7-52); Albumin 3.2 g/dL (3.5-5.7); Albumin/Globulin Ratio 1.1 (1.1-2.2); Alkaline Phosphatase 124 Units/L (34-104); Aspartate Amino Transferase 25 Units/L (13-39); BUN/Creatinine Ratio 17 (6-26); Bilirubin,Direct 0.1 mg/dL (0.0-0.2); Bilirubin,Indirect 0.5 mg/dL (0.0-1.0); Bilirubin,Total 0.6 mg/dL (0.3-1.0); Blood Urea Nitrogen 14 mg/dL (8-23); Calcium 8.5 mg/dL (8.6-10.3); Carbon Dioxide 27 mEq/L (23-29); Chloride 101 mEq/L (98-107); Glucose 163 mg/dL (70-105); Magnesium 1.8 mg/dL (1.6-2.6); Osmolality,Calculated 282 (280-300); Phosphorous 2.5 mg/dL (2.7-4.5); Potassium 3.9 mEq/L (3.5-5.1); Sodium 134 mEq/L (136-145); Total Protein 6.2 g/dL (6.4-8.9); eGFR For African Americans > 60 (> 60); eGFR For Non-African Americans > 60 (> 60)
[2021-06-17] MEDS: Piperacillin/Tazobactam 3.375 GM in 0.9 % Sodium Chloride Mini Bag 100 ML IVPB SCH ×3 (06:08→16:09)
[2021-06-17] MEDS: *HR* Enoxaparin 40 MG/0.4 ML SYRINGE SQ SCH (06:31)
[2021-06-17] MEDS ORDERED: Piperacillin/Tazobactam 3.375 GM in 0.9 % Sodium Chloride Mini Bag 100 ML IVPB SCH (08:00)
[2021-06-17] MEDS: Aspirin Enteric Coated 325 MG Tablet PO SCH (09:01)
[2021-06-17] MEDS: Metoprolol XL (24 HR) Succ 50 MG TAB.ER.24H PO SCH ×2 (09:02→20:34)
[2021-06-17] MEDS: Gabapentin 400 MG CAPSULE PO SCH ×3 (09:03→20:34)
[2021-06-17] MEDS: *HR* Digoxin 0.125 MG TABLET PO SCH (09:05)
[2021-06-17] MEDS: Insulin DETEMIR 100 UNIT/ML X5UNITS SUBQ SCH (09:10)
[2021-06-17] MEDS: *HR* OxyCODONE/APAP 10/325 TABLET PO PRN ×2 (12:28→18:23)
[2021-06-17] MEDS: Azithromycin 250 MG TABLET PO SCH (13:21)
[2021-06-17] MEDS: Acetaminophen 325 MG TABLET PO PRN (22:11)
[2021-06-18] MEDS: Piperacillin/Tazobactam 3.375 GM in 0.9 % Sodium Chloride Mini Bag 100 ML IVPB SCH (00:32)
[2021-06-18] MEDS: *HR* OxyCODONE/APAP 10/325 TABLET PO PRN (00:34)
[2021-06-18 02:37] LABS: Hematocrit 40.8 % (37.5-50.1); Mean Corpuscular HGB Conc 31.9 g/dL (31.6-35.5); Mean Corpuscular Hemoglobin 32.8 pg (28.0-33.3); Mean Platelet Volume 10.4 fL (9.4-12.4); Platelet Count 212 K/mcL (140-400); Red Blood Count 3.96 M/mcL (4.19-5.50); Red Cell Distribution Width 13.4 % (11.5-14.5); White Blood Count 10.9 K/mcL (4.3-11.1)
[2021-06-18 02:49] LABS: BUN/Creatinine Ratio 12 (6-26); Blood Urea Nitrogen 10 mg/dL (8-23); Calcium 8.7 mg/dL (8.6-10.3); Carbon Dioxide 28 mEq/L (23-29); Chloride 102 mEq/L (98-107); Glucose 187 mg/dL (70-105); Osmolality,Calculated 286 (280-300); Potassium 3.7 mEq/L (3.5-5.1); Sodium 136 mEq/L (136-145); eGFR For African Americans > 60 (> 60); eGFR For Non-African Americans > 60 (> 60)
[2021-06-18] MEDS: *HR* Enoxaparin 40 MG/0.4 ML SYRINGE SQ SCH (04:30)
[2021-06-18] MEDS: Acetaminophen 325 MG TABLET PO PRN (04:31)
[2021-06-18 06:43] VITALS: BP 130/73; PULSE 86; TEMP 98.7; O2SAT 99
[2021-06-18] MEDS: Metoprolol XL (24 HR) Succ 50 MG TAB.ER.24H PO SCH (07:44)
[2021-06-18] MEDS: Gabapentin 400 MG CAPSULE PO SCH (07:45)
[2021-06-18] MEDS: Aspirin Enteric Coated 325 MG Tablet PO SCH (07:45)
[2021-06-18] MEDS: *HR* Digoxin 0.125 MG TABLET PO SCH (07:45)
[2021-06-18] MEDS: Insulin DETEMIR 100 UNIT/ML X5UNITS SUBQ SCH (09:50)
[2021-06-19 18:38] LABS: Fluid Source for Cholesterol PLEURAL FLUID
[2021-06-20 15:02] LABS: Cholesterol,Body Fluid 32 mg/dL
== END 2021-06-18 11:59 | disposition home health service (06) | DRG 871 ==
LOC: 2ANU → SUATTDRO 19:51
PROVIDERS: ADMIT Pharmacist; ATTEND Internal Medicine